=== PATIENT | female | born 1985 ===

== ENCOUNTER 2020-01-29 00:03 | Emergency (ER) | payer OTHER, SELFPAY ==
[2020-01-29 00:08] VITALS: BP 132/76; PULSE 85; RESP 16; TEMP 36.4; O2SAT 96; BMI 64.0
--- NOTE | 2020-01-29 00:52 | PC.NURSE ---
Pt ambulating from the waiting room into room 14 with a linton/steady gait. Pt states that she has been to the dentist twice this week for pain to her bottom molars on the right side. Pt was provided with a cleaning and was told that her teeth were fine, no cavities were found however pt reported continued, increased pain. Pt was prescribed Ibuprofen and Amoxicillin with no relief. Pt returns to the ED tonight due to the pain. Pt speaking full sentences with good dentition, -obvious abscesses to mouth noted.
--- NOTE | 2020-01-29 01:22 | ED_ITS ---
HPI - Dental/Oral General Chief complaint: Dental/Oral Stated complaint: Dental Pain Time Seen by Provider: 01/29/20 01:19 Source: patient Mode of arrival: ambulatory Limitations: no limitations History of Present Illness HPI Narrative: This is a 34-year-old female who presents stating that she had dental pain on Tuesday was provided with antibiotics and then followed up with the dentist today and which time they took x-rays and states that actually her dental pain does not seem to be due to any infection. She states she has tried multiple modalities any such as Tylenol, ibuprofen, [id number] Anbesol w ithout good resolution of her pain she describes it as burning and tingling in nature but denies any pain in the ear and denies any eye pain. in addition, patient denies any fevers, chills. Location: Tooth # Teeth map: 1. Related Data Previous Rx's Medication Instructions Recorded ketorolac 10 mg PO Q6H 5 Days #20 tab 01/29/20 valacyclovir 1,000 mg PO Q8H 7 Days #21 tab 01/29/20 Allergies Allergy/AdvReac Type Severity Reaction Status Date / Time No Known Allergies Allergy Verified 01/29/20 00:06 [No Known Allergies*] Review of Systems Review of Systems: Pertinent positives and negatives as stated in HPI 10 point review of systems is otherwise negative. PMFSH Past Medical History Source: nursing notes reviewed Medical History No known health problems Social History Social History Advance Directives: No Physical Exam Vital Signs: Vital Signs: Last Vital Signs Temp 97.6 F 01/29/20 00:08 Pulse 85 01/29/20 00:08 Resp 16 01/29/20 00:08 BP 132/76 01/29/20 00:08 Pulse Ox 96 01/29/20 00:08 Body Mass Index 64.0 VITAL SIGNS: Reviewed. GENERAL: Well developed, well nourished, in no acute distress. HEAD: Normocephalic/atraumatic, EYES: PERRLA, EOMI intact without pain, no nystagmus/pallor/icterus noted EARS: Ext canals without abnormality, TMs non-bulging and non-erythematous NOSE: Nares patent bilateral OROPHARYNX: no oral lesions noted, posterior pharynx clear and non-erythematous without noted tonsillar enlargement/erythema/exudates, Tapping on tooth 31/30 to there is no additional pain, no vesicular formation noted NECK: Supple, no adenopathy LUNGS: Normal breath sounds. No adventitious sounds or accessory muscle use. SpO2<96> CARDIOVASCULAR: Regular rate and rhythm without noted murmurs, no JVD or lower extremity edema. ABDOMEN: Soft, non-tender, non-distended with bowel sounds. No rigidity. No guarding. No palpable masses or hernias noted MUSCULOSKELETAL: No tenderness, deformities, or effusions noted on gross inspection. EXTREMITIES: No cyanosis, clubbing or edema. SKIN: Inspection of the skin reveals no rashes, ulcerations, jaundice, pallor, or petechiae. NEUROLOGIC: Alert and oriented x 4. Strength and sensation to light touch were grossly intact x 4. Course Course Course Narrative: this is a 34-year-old female with history and clinical presentation most suspicious for possible herpes simplex as there is no evidence of tooth infection/ abscess and no involvement of the ear despite the fact that there is no vesicles noted. Patient will receive combination analgesics an initial dose of valacyclovir here in the emergency department. Discharge Plan Discharge Clinical Impression: Herpes zoster Qualifiers: Herpes zoster complications: without complications Qualified Code(s): B02.9 - Zoster without complications Patient Disposition: Home, Self-Care Instructions: Shingles (ED) Additional Instructions: 1. Tylenol 1000 mg, orally, every 6 hours as needed for pain control. Do not exceed 4000 mg within 24 hours. 2. please follow-up with your primary care provider for re-evaluation. The patient and/or family acknowledge understanding of results (as applicable), diagnosis, treatment plan, need for follow up, and symptoms that should prompt a return to the emergency room. Prescriptions: New ketorolac 10 mg tablet 10 mg PO Q6H 5 Days Qty: 20 RF: 0 valacyclovir 1 gram tablet 1,000 mg PO Q8H 7 Days Qty: 21 RF: 0 Referrals: Armand Art MD [Primary Care Provider] - 2 days ( follow-up for suspected herpes zoster as dental exam did not elucidate any infection)
[2020-01-29] MEDS: Ketorolac Tromethamine 15 MG/ML VIAL IM (01:29)
[2020-01-29] MEDS: Acetaminophen 325 MG TABLET 975 MG PO (01:29)
--- NOTE | 2020-01-29 01:33 | PC.NURSE ---
Pt medicated per EMAR, VSS, awaiting DC paperwork.
[2020-01-29 01:34] VITALS: BP 144/89; PULSE 80; RESP 16; O2SAT 100
== END 2020-01-29 01:48 | disposition home or self-care (01) ==
PROVIDERS: Emergency Provider Student in an Organized Health Care Education/Training Program; PCP Internal Medicine
DX: B02.9 Zoster without complications (principal)
CPT/HCPCS: 96372; 99283; 99284; J1885

== ENCOUNTER 2020-11-26 13:07 | Emergency (ER) | payer OTHER, SELFPAY ==
--- NOTE | ~2020-11-26 | XR_ITS ---
EXAMINATION: XR HIP, LEFT CLINICAL INFORMATION: Left hip and groin pain. COMPARISON: None TECHNIQUE: Two views of the left hip. FINDINGS: Bones and soft tissues are normal. No fracture. Alignment is anatomic. Hip joint space is maintained. XR/XR hip LT w PEL1V IMPRESSION: No bony abnormality of the left hip identified.
[2020-11-26 13:48] VITALS: BP 147/92; PULSE 78; RESP 18; TEMP 36.8; O2SAT 100; BMI 25.2
--- NOTE | 2020-11-26 16:04 | ED.GENADULT ---
HPI - General Adult General Chief complaint: Extremity Injury, Lower Stated complaint: leg pain Time Seen by Provider: 11/26/20 14:49 Source: patient Mode of arrival: ambulatory Limitations: no limitations History of Present Illness HPI narrative: This 35-year-old female that comes into the emergency department from home with complaints of left groin pain and pain over the mons pubis located to the left hand side. She states that this pain started about 2 days ago, and has been progressively worsening. She does not recall what was happening when the pain started. She denies trauma to the area. She states that the pain is localized to that area and does not radiate anywhere else. She has never had pain like this in the past. She is currently sexually active, with 1 partner, and she is not concerned for sexually transmitted diseases. She has no past history of gonorrhea, or chlamydia however she states she has had genital herpes. She denies vaginal discharge, pain with urination, problems defecating, back pain, pain with ambulation, shortness of breath, fevers, chills, chest pain, hematuria. She is regularly followed by OBGYN, and her PCP. She does not think she is currently at this time. Onset (ago): day(s) (Two days) Radiation: non-radiation Severity scale (1-10): 6 Pain Consistency: constant Relieving factors: none Exacerbating factors: none Associated symptoms: denies other symptoms Related Data Previous Rx's Medication Instructions Recorded ketorolac 10 mg tablet 10 mg PO Q6H 5 Days #20 tab 01/29/20 valacyclovir 1 gram tablet 1,000 mg PO Q8H 7 Days #21 tab 01/29/20 diazepam 5 mg tablet (Valium) 5 mg PO TID PRN #14 tab 11/26/20 naproxen 500 mg tablet 500 mg PO BID PRN #10 tab 11/26/20 Allergies Allergy/AdvReac Type Severity Reaction Status Date / Time No Known Allergies Allergy Verified 11/26/20 13:47 [No Known Allergies*] Review of Systems Review of Systems: Constitutional : No Weight loss, No Fever, No Chills, No Night Sweats, No Fatigue, No Malaise ENT/Mouth : No Hearing loss, No Ear Pain, No Nasal Congestion, No Sinus Pain, No Hoarseness, No sore throat, No Rhinorrhea, No Swallowing Difficulty Eyes: No Eye Pain, No Swelling, No Redness, No Foreign Body, No Discharge, No Vision Changes Cardiovascular : No Chest Pain, No SOB, No Dyspnea on Exertion, No Orthopnea, No Edema, No Palpitations Respiratory : No Cough, No Sputum, No Wheezing, No Smoke Exposure, No Dyspnea Gastrointestinal : No Nausea, No Vomiting, No Diarrhea, No Constipation, No abdominal Pain, No Hematochezia, No Melena Genitourinary : no irregular bleeding, No Dysuria, No Urinary Frequency, No Hematuria, No Urinary Incontinence, No Urgency, No Flank Pain, No Urinary Flow Changes, No Hesitancy, + pain to the groin, and mons pubis Musculoskeletal : No joint pain, No Myalgias, No Joint Swelling, + pain 2 left groin Skin : No Skin Lesions, No rash Neuro : No Weakness, No Numbness, No Paresthesias, No Loss of Consciousness, No Dizziness, No Headache Psych : No Anxiety/Panic, No Depression, No SI/HI/AH/VH, No Social Issues, Heme/Lymph: No Bruising, No Bleeding,No Lymphadenopathy Endocrine : No Polyuria, No Polydipsia Yes all other systems are reviewed and are negative [facility] Past Medical History Medical History No known health problems Social History Social History Advance Directives: No Advance Directives Information Provided: Yes Patient : No Physical Exam Vital Signs: Vital Signs: Last Vital Signs Temp 98.2 F 11/26/20 13:48 Pulse 78 11/26/20 13:48 Resp 18 11/26/20 13:48 BP 147/92 H 11/26/20 13:48 Pulse Ox 100 11/26/20 13:48 Body Mass Index 25.2 vital signs have been reviewed as normal and appeared to be correct. Blood pressure normal. Heart rate normal. Respiration rate normal. Temperature normal. Oxygen saturation normal. Appearance: Alert. Oriented X3. No acute distress. Head: Normal external exam. Normocephalic. Atraumatic. Eyes: PERRLA. EOMI. Conjunctiva and sclera normal. Eyelids normal. ENT: EAC normal. TM's Normal. Pharynx normal. Uvula midline. Moist mucous membranes. Neck: Normal inspection. Neck supple. FROM. No adenopathy. Thyroid Normal. No meningeal signs. No neck mass noted. CVS: Normal heart rate and rhythm. Heart sound normal. Pulses normal throughout. No murmurs/rales/gallops. Respiratory: No respiratory distress. Painless inspiration. Breath sounds normal. No wheezes/rales/rhonchi noted. Chest nontender. No accessory muscle usage noted or decreased air movement noted. Abdomen: Soft and nontender. Bowel sounds normal in all 4 quadrants. No distention noted. No organomegaly noted. No visible injury noted. : Pain over the mons pubis to palpation, localized to the left side. Pain to the left groin. Pelvic exam revealed no abnormalities, no erythema, discharge, blood noted to the cervix or cervical os. No chandelier sign. Patient tolerated them pelvic exam well. Back: No CVA tenderness. Full range of motion noted. No rashes/lesion/induration/fluctuance or signs of infection noted. Skin: Skin warm and dry. Normal skin color. Normal skin turgor. No rashes/lesions/lacerations noted. Extremities: No lower extremity edema. Extremities exhibit normal range of motion. Extremities nontender. Neuro: Oriented X 3. No motor deficit. No sensory deficit. Reflexes normal. Normal steady gait. No focal neuro deficits noted. Vascular: + radial pulses/+ 2 distal pedal pulses/+2 dorsalis pedis b/l. Normal cap refill. No cyanosis noted to upper extremity nails and lower extremity toes nails. Course Course Course Narrative: Due to the patient's vague symptoms, a pelvic exam was done, and samples were taken to rule out possibility and PID, or STDs. Patient tolerated procedure well. No notable findings on exam. X-ray of the hip/pelvis revealed no abnormal findings. Had this times and most likely diagnosis is a groin strain/sprain. However, STD samples which he can, and will await results. Patient aware of plan, and educated on diagnosis. She has no questions or concerns at this time. Medical Decision Making Lab Data Labs: Lab Results 11/26/20 11/26/20 Range/Units 16:39 16:40 Urine Color YELLOW Urine Appearance CLEAR Urine pH 6.0 (5.0-8.0) Ur Specific [place] >= 1.030 H (1.005-1.025) Urine Protein TRACE (NEG-TRACE) MG/DL Urine Glucose (UA) NEG (NEG) MG/DL Urine Ketones 40 (NEG) MG/DL Urine Blood 1+ H (NEG) Urine Nitrite NEG (NEG) Ur Leukocyte Esterase NEG (NEG) Urine RBC 0-2 (0) /HPF Urine WBC 0 (0-4) /HPF Ur Squamous Epith Cells TRACE /LPF Urine Bacteria TRACE /LPF Urine Test NEGATIVE (NEGATIVE) Imaging Data X-ray of pelvis/hip: Attestation: I personally reviewed and interpreted this imaging study as follows: Radiologist's impression: IMPRESSION: No bony abnormality of the left hip identified. Discharge Plan Discharge Clinical Impression: Groin strain Patient Disposition: Home, Self-Care Instructions: Groin Strain (ED) Additional Instructions: You have pending lab results if any are positive you will be contacted within 5-7 days. Prescriptions: New naproxen 500 mg tablet 500 mg PO BID PRN (Reason: pain) Qty: 10 RF: 0 diazepam [Valium] 5 mg tablet 5 mg PO TID PRN (Reason: muscle spasm) Qty: 14 RF: 0 No Action ketorolac 10 mg tablet 10 mg PO Q6H 5 Days Qty: 20 RF: 0 valacyclovir 1 gram tablet 1,000 mg PO Q8H 7 Days Qty: 21 RF: 0 Referrals: Armand Art MD [Primary Care Provider] - 2 days Stand Alone Forms: Work/School Release Print Language: Mongolian
[2020-11-26] MEDS: Ibuprofen 800 MG TABLET PO (16:45)
[2020-11-26 16:50] LABS: Appearance Urine CLEAR; Color Urine YELLOW; Glucose Urine UA NEG (NEG); Leukocyte Esterase Urine NEG (NEG); Nitrite Urine NEG (NEG); Specific Gravity - Urine >= 1.030 (1.005-1.025); UACC Culture Trigger NO; Urine Blood 1+ (NEG); Urine Ketones 40 MG/DL (NEG); Urine Protein TRACE MG/DL (NEG-TRACE)
[2020-11-26 16:51] LABS: Urine Pregnancy NEGATIVE (NEGATIVE)
[2020-11-26 16:52] LABS: UPreg QC Valid YES
[2020-11-26 16:59] LABS: Bacteria Urine TRACE /LPF; RBC Urine 0-2 /HPF (0); Squamous Epithelial Cell Urine TRACE /LPF; WBC Urine 0 /HPF (0-4)
[2020-11-27 02:04] LABS: CT PCR NOT DETECTED (Not Detect.); NG PCR NOT DETECTED (Not Detect.)
[2020-11-27 10:05] LABS: BV Int Neg Control Negative (Negative); BV Int Pos Control Positive (Positive)
== END 2020-11-26 17:09 | disposition home or self-care (01) ==
PROVIDERS: Physician Assistant Medical; Emergency Provider Emergency Medicine Emergency Medical Services; PCP Internal Medicine
DX: S39.013A Strain of muscle, fascia and tendon of pelvis, initial encounter (principal); S39.011A Strain of muscle, fascia and tendon of abdomen, initial encounter; R10.2 Pelvic and perineal pain; M25.552 Pain in left hip; X58.XXXA Exposure to other specified factors, initial encounter; Y93.9 Activity, unspecified; Y92.9 Unspecified place or not applicable; Y99.9 Unspecified external cause status; Z20.2 Contact with and (suspected) exposure to infections with a predominantly sexual mode of transmission; Z79.899 Other long term (current) drug therapy
CPT/HCPCS: 73502; 81001; 81025; 87480; 87491; 87510; 87591; 87660; 99283; 99284

== ENCOUNTER 2020-12-16 06:47 | Emergency (ER) | payer OTHER, SELFPAY ==
--- NOTE | ~2020-12-16 | CT_ITS ---
EXAMINATION: CT ABDOMEN AND PELVIS WITHOUT CONTRAST CLINICAL INFORMATION: Left flank pain COMPARISON: None TECHNIQUE: Multidetector volumetric imaging was performed from the superior aspect of the liver through the pubic symphysis. Sagittal and coronal reformatted images were obtained on the technologist's workstation. This CT examination was performed using dose optimization techniques as appropriate, variously including the following: *Automated exposure control *Adjustment of mA and/or kV according to patient size (this includes techniques or standardized protocols for targeted exams where dose is matched to indication/reason for exam; i.e. extremities or head) *Use of iterative reconstruction technique DLP: 669 mGy-cm FINDINGS: LUNG BASES: The lung bases are clear. The heart size is normal. LIVER, GALLBLADDER, AND BILIARY TREE: The liver is normal in size, shape, and attenuation. No focal hepatic lesion or biliary ductal dilatation is present. The gallbladder is unremarkable with no evidence of radiopaque gallstones, gallbladder wall thickening, or obvious pericholecystic inflammatory changes. PANCREAS: Unremarkable. SPLEEN: Unremarkable. ADRENAL GLANDS: Unremarkable. KIDNEYS AND URETERS: The kidneys are normal in size, shape, and attenuation. No hydronephrosis, hydroureter, or calculi seen. No perinephric stranding. BLADDER: Unremarkable. GASTROINTESTINAL TRACT: There is scattered stool and gas seen throughout the colon without significant distention. The small bowel loops are normal caliber. Appendix is normal caliber. No inflammatory changes seen in the abdomen. ABDOMINAL WALL: No significant hernia is appreciated. LYMPH NODES: Normal. VASCULAR: Unremarkable. PELVIC VISCERA: The uterus is anteverted without any focal lesion. No adnexal mass or free fluid seen. OSSEOUS STRUCTURES: Unremarkable. CT/CT abdomen pelvis wo con IMPRESSION: No acute intra-abdominal process seen. Normal appendix
[2020-12-16 06:50] VITALS: BP 138/91; PULSE 82; RESP 16; TEMP 36.7; O2SAT 97; BMI 29.0
[2020-12-16 07:07] LABS: Appearance Urine HAZY; Color Urine YELLOW; Glucose Urine UA NEG (NEG); Leukocyte Esterase Urine NEG (NEG); Nitrite Urine NEG (NEG); Specific Gravity - Urine >= 1.030 (1.005-1.025); UACC Culture Trigger NO; Urine Blood 1+ (NEG); Urine Ketones 5 MG/DL (NEG); Urine Protein NEG (NEG-TRACE)
[2020-12-16 07:19] LABS: WBC Urine 0 /HPF (0-4)
[2020-12-16 07:20] LABS: Amorphous Sediment Urine 1+ /LPF; Mucus Urine 3+ /LPF; Squamous Epithelial Cell Urine 1+ /LPF
--- NOTE | 2020-12-16 07:39 | ED_ITS ---
HPI - Female Genitourinary General Chief complaint: Urogenital-Female Stated complaint: side pain radiates to back Time Seen by Provider: 12/16/20 07:34 Source: patient Mode of arrival: ambulatory Limitations: no limitations History of Present Illness HPI Narrative: Patient comes to emergency room complaining of left-sided flank pain for 3 days. Patient denies dysuria, complaining of frequency. Patient denies fever chills, nausea vomiting or diarrhea, no abdominal pain. Related Data Previous Rx's Medication Instructions Recorded ketorolac 10 mg tablet 10 mg PO Q6H 5 Days #20 tab 01/29/20 valacyclovir 1 gram tablet 1,000 mg PO Q8H 7 Days #21 tab 01/29/20 diazepam 5 mg tablet (Valium) 5 mg PO TID PRN #14 tab 11/26/20 naproxen 500 mg tablet 500 mg PO BID PRN #10 tab 11/26/20 ibuprofen 600 mg tablet 600 mg PO Q6H PRN #14 tab 12/16/20 Allergies Allergy/AdvReac Type Severity Reaction Status Date / Time No Known Allergies Allergy Verified 12/16/20 06:50 [No Known Allergies*] Review of Systems Review of Systems: Constitutional : No Weight loss, No Fever, No Chills, No Night Sweats, No Fatigue, No Malaise ENT/Mouth : No Hearing loss, No Ear Pain, No Nasal Congestion, No Sinus Pain, No Hoarseness, No sore throat, No Rhinorrhea, No Swallowing Difficulty Eyes: No Eye Pain, No Swelling, No Redness, No Foreign Body, No Discharge, No Vision Changes Cardiovascular : No Chest Pain, No SOB, No Dyspnea on Exertion, No Orthopnea, No Edema, No Palpitations Respiratory : No Cough, No Sputum, No Wheezing, No Smoke Exposure, No Dyspnea Gastrointestinal : No Nausea, No Vomiting, No Diarrhea, No Constipation, No abdominal Pain, No Hematochezia, No Melena Genitourinary : no irregular bleeding, No Dysuria, No Urinary Frequency, No Hematuria, No Urinary Incontinence, No Urgency, complaining of left-sided Flank Pain, No Urinary Flow Changes, No Hesitancy Musculoskeletal : No joint pain, No Myalgias, No Joint Swelling Skin : No Skin Lesions, No rash Neuro : No Weakness, No Numbness, No Paresthesias, No Loss of Consciousness, No Dizziness, No Headache Psych : No Anxiety/Panic, No Depression, No SI/HI/AH/VH, No Social Issues, Heme/Lymph: No Bruising, No Bleeding,No Lymphadenopathy Endocrine : No Polyuria, No Polydipsia, No Temperature Intolerance PMF Past Medical History Medical History No known health problems Social History Social History Patient Tobacco Use Status: Never used Tobacco Use of substances other than those prescribed or required for medical reasons: Yes Substance Use Type: Marijuana Advance Directives: No Physical Exam Vital Signs: Vital Signs: Last Vital Signs Temp 97.9 F 12/16/20 08:49 Pulse 70 12/16/20 08:49 Resp 16 12/16/20 08:49 BP 146/72 H 12/16/20 08:49 Pulse Ox 99 12/16/20 08:49 Body Mass Index 29.0 Const: Other: Appearance: Alert. Oriented X3. No acute distress. Eyes: Pupils equal, round and reactive to light. ENT: Pharynx normal. Neck: Normal inspection. Neck supple. No lymph nodes noted. No crepitus CVS: Normal heart rate and rhythm. Pulses normal. Normal S1 and S2 Respiratory: No respiratory distress. Breath sounds normal. No Wheezing. No rales Abdomen: Soft and nontender. No rigidity. No distention. Mild left-sided CVA tenderness Skin: Skin warm and dry. Normal skin color. Normal skin turgor. Extremities: No lower extremity edema. No lower extremity edema. No Lacerations. No Rash Neuro: Oriented X 3. No motor deficit. No sensory deficit. Moving all extermities. No slurred speech. Course Course Course Narrative: Patient's CT scan within normal limits, no acute findings, discussed labs with patient as well. Patient's pain likely musculoskeletal. I informed the patient that she has blood in the urine but is chronic, patient will follow-up with her primary care physician. MDM - Female Genitourinary Lab Data Result diagrams: 12/16/20 07:54 12/16/20 07:54 Labs: Lab Results 12/16/20 12/16/20 12/16/20 Range/Units 06:58 06:58 07:54 WBC 8.0 (4.8-10.8) X10*3/uL RBC 4.33 (4.20-5.50) X10*6/uL Hgb 13.1 (12.0-16.0) g/dl Hct 39.2 (37-47) % MCV 90.5 (80-98) fL MCH 30.3 (27.0-33.0) pg MCHC 33.4 (31.0-35.0) g/dl RDW 11.9 (11.0-16.0) % Plt Count 209 (160-400) X10*3/uL MPV 11.2 (9.4-12.3) fL Immature Gran % (Auto) 0.2 (0.0-0.4) % Neut % (Auto) 75.3 H (45-73) % Lymph % (Auto) 17.3 L (20-40) % [place] % (Auto) 6.6 (2-11) % Eos % (Auto) 0.4 (0-4) % Baso % (Auto) 0.2 (0-2) % Lymph # (Auto) 1.4 (1.2-4.9) X10*3/uL [place] # (Auto) 0.5 (0.1-1.2) X10*3/uL Eos # (Auto) 0.0 (0.0-0.4) X10*3/uL Baso # (Auto) 0.0 (0.0-0.2) X10*3/uL Abs Immat Gran (auto) 0.02 (0.00-0.03) X10*3/uL Absolute Neuts (auto) 6.0 (2.0-8.3) X10*3/uL Absolute Nucleated RBC 0.000 (0.0-0.012) X10*3/uL Nucleated RBC % (auto) 0.0 (0.0-0.2) /100WBC Sodium (135-145) mmol/L Potassium (3.3-5.1) mmol/L Chloride (96-108) mmol/L Carbon Dioxide (22-29) mmol/L Anion Gap (12-20) BUN (9-16) mg/dL Creatinine (0.5-1.4) mg/dL Estim Creat Clear Calc Estimated GFR Random Glucose (60-115) mg/dL Calcium (8.4-10.2) mg/dL Total Bilirubin (0.0-1.0) mg/dL Direct Bilirubin (0.0-0.5) mg/dL AST (5-31) U/L ALT (0-31) U/L Alkaline Phosphatase (39-117) U/L Total Protein (6.5-8.0) g/dL Albumin (3.5-5.0) g/dL Urine Color YELLOW Urine Appearance HAZY Urine pH 6.0 (5.0-8.0) Ur Specific [place] >= 1.030 H (1.005-1.025) Urine Protein NEG (NEG-TRACE) MG/DL Urine Glucose (UA) NEG (NEG) MG/DL Urine Ketones 5 (NEG) MG/DL Urine Blood 1+ H (NEG) Urine Nitrite NEG (NEG) Ur Leukocyte Esterase NEG (NEG) Urine RBC 5-9 H (0) /HPF Urine WBC 0 (0-4) /HPF Ur Squamous Epith Cells 1+ /LPF Amorphous Sediment 1+ /LPF Urine Bacteria NONE /LPF Urine Mucus 3+ /LPF Urine Test NEGATIVE (NEGATIVE) 12/16/20 Range/Units 07:54 WBC (4.8-10.8) X10*3/uL RBC (4.20-5.50) X10*6/uL Hgb (12.0-16.0) g/dl Hct (37-47) % MCV (80-98) fL MCH (27.0-33.0) pg MCHC (31.0-35.0) g/dl RDW (11.0-16.0) % Plt Count (160-400) X10*3/uL MPV (9.4-12.3) fL Immature Gran % (Auto) (0.0-0.4) % Neut % (Auto) (45-73) % Lymph % (Auto) (20-40) % [place] % (Auto) (2-11) % Eos % (Auto) (0-4) % Baso % (Auto) (0-2) % Lymph # (Auto) (1.2-4.9) X10*3/uL [place] # (Auto) (0.1-1.2) X10*3/uL Eos # (Auto) (0.0-0.4) X10*3/uL Baso # (Auto) (0.0-0.2) X10*3/uL Abs Immat Gran (auto) (0.00-0.03) X10*3/uL Absolute Neuts (auto) (2.0-8.3) X10*3/uL Absolute Nucleated RBC (0.0-0.012) X10*3/uL Nucleated RBC % (auto) (0.0-0.2) /100WBC Sodium 141 (135-145) mmol/L Potassium 3.7 (3.3-5.1) mmol/L Chloride 108 (96-108) mmol/L Carbon Dioxide 26 (22-29) mmol/L Anion Gap 11 L (12-20) BUN 9 (9-16) mg/dL Creatinine 0.74 (0.5-1.4) mg/dL Estim Creat Clear Calc 114.2 Estimated GFR > 60 Random Glucose 123 H (60-115) mg/dL Calcium 9.3 (8.4-10.2) mg/dL Total Bilirubin 0.3 (0.0-1.0) mg/dL Direct Bilirubin < 0.2 (0.0-0.5) mg/dL AST 20 (5-31) U/L ALT 30 (0-31) U/L Alkaline Phosphatase 93 (39-117) U/L Total Protein 6.6 (6.5-8.0) g/dL Albumin 4.2 (3.5-5.0) g/dL Urine Color Urine Appearance Urine pH (5.0-8.0) Ur Specific [place] (1.005-1.025) Urine Protein (NEG-TRACE) MG/DL Urine Glucose (UA) (NEG) MG/DL Urine Ketones (NEG) MG/DL Urine Blood (NEG) Urine Nitrite (NEG) Ur Leukocyte Esterase (NEG) Urine RBC (0) /HPF Urine WBC (0-4) /HPF Ur Squamous Epith Cells /LPF Amorphous Sediment /LPF Urine Bacteria /LPF Urine Mucus /LPF Urine Test (NEGATIVE) Imaging Data CT scan - abdomen: Radiologist's impression: FINDINGS: LUNG BASES: The lung bases are clear. The heart size is normal.? LIVER, GALLBLADDER, AND BILIARY TREE: The liver is normal in size, shape, and attenuation. No focal hepatic lesion or biliary ductal dilatation is present. The gallbladder is unremarkable with no evidence of radiopaque gallstones, gallbladder wall thickening, or obvious pericholecystic inflammatory changes.? PANCREAS: Unremarkable.? SPLEEN: Unremarkable.? ADRENAL GLANDS: Unremarkable.? KIDNEYS AND URETERS: The kidneys are normal in size, shape, and attenuation. No hydronephrosis, hydroureter, or calculi seen. No perinephric stranding. ? BLADDER: Unremarkable.? GASTROINTESTINAL TRACT: There is scattered stool and gas seen throughout the colon without significant distention. The small bowel loops are normal caliber. Appendix is normal caliber. No inflammatory changes seen in the abdomen.? ABDOMINAL WALL: No significant hernia is appreciated.? LYMPH NODES: Normal. VASCULAR: Unremarkable. PELVIC VISCERA: The uterus is anteverted without any focal lesion. No adnexal mass or free fluid seen.? OSSEOUS STRUCTURES: Unremarkable.? CT/CT abdomen pelvis wo con IMPRESSION: No acute intra-abdominal process seen. ? Normal appendix? Discharge Plan Discharge Clinical Impression: Acute left flank pain Patient Disposition: Home, Self-Care Instructions: Flank Pain (ED) Additional Instructions: Please follow-up with your primary care physician tomorrow. If you have any worsening or new symptoms, please return to the emergency room or call 911 Prescriptions: New ibuprofen 600 mg tablet 600 mg PO Q6H PRN (Reason: pain) Qty: 14 RF: 0 No Action ketorolac 10 mg tablet 10 mg PO Q6H 5 Days Qty: 20 RF: 0 valacyclovir 1 gram tablet 1,000 mg PO Q8H 7 Days Qty: 21 RF: 0 naproxen 500 mg tablet 500 mg PO BID PRN (Reason: pain) Qty: 10 RF: 0 diazepam [Valium] 5 mg tablet 5 mg PO TID PRN (Reason: muscle spasm) Qty: 14 RF: 0
[2020-12-16 07:59] LABS: MANUAL DIFF FLAG NO
[2020-12-16 08:00] LABS: Basophils Percent Auto 0.2 % (0-2); Eosinophils Percent Auto 0.4 % (0-4); Hematocrit 39.2 % (37-47); Hemoglobin 13.1 g/dl (12.0-16.0); Imm Gran Abs Auto 0.02 X10*3/uL (0.00-0.03); Imm Gran Pct Auto 0.2 % (0.0-0.4); Lymphocytes Absolute Auto 1.4 X10*3/uL (1.2-4.9); Lymphocytes Percent Auto 17.3 % (20-40); Mean Corpuscular HGB Conc 33.4 g/dl (31.0-35.0); Mean Corpuscular Hemoglobin 30.3 pg (27.0-33.0); Mean Corpuscular Volume 90.5 fL (80-98); Mean Platelet Volume 11.2 fL (9.4-12.3); Monocytes Absolute Auto 0.5 X10*3/uL (0.1-1.2); Monocytes Percent Auto 6.6 % (2-11); Neutrophils Percent Auto 75.3 % (45-73); Platelet Count 209 X10*3/uL (160-400); Red Blood Count 4.33 X10*6/uL (4.20-5.50); Red Cell Distribution Width 11.9 % (11.0-16.0)
[2020-12-16 08:14] LABS: Alanine Aminotransferase 30 U/L (0-31); Albumin Level 4.2 g/dL (3.5-5.0); Alkaline Phosphatase 93 U/L (39-117); Anion Gap 11 (12-20); Aspartate Amino Transferase 20 U/L (5-31); Bilirubin Direct < 0.2 mg/dL (0.0-0.5); Bilirubin Total 0.3 mg/dL (0.0-1.0); Blood Urea Nitrogen 9 mg/dL (9-16); Calcium 9.3 mg/dL (8.4-10.2); Carbon Dioxide 26 mmol/L (22-29); Chloride 108 mmol/L (96-108); Creatinine Clr Calc Pharmacy 114.2; Estimated Glomerular Filt Rate > 60; Glucose Random 123 mg/dL (60-115); Potassium 3.7 mmol/L (3.3-5.1); Sodium 141 mmol/L (135-145); Total Protein 6.6 g/dL (6.5-8.0)
[2020-12-16 08:25] LABS: UPreg QC Valid YES; Urine Pregnancy NEGATIVE (NEGATIVE)
[2020-12-16 08:49] VITALS: BP 146/72; PULSE 70; RESP 16; TEMP 36.6; O2SAT 99
== END 2020-12-16 10:18 | disposition home or self-care (01) ==
PROVIDERS: Emergency Provider Emergency Medicine; PCP Internal Medicine
DX: R10.9 Unspecified abdominal pain (principal); Z79.899 Other long term (current) drug therapy
CPT/HCPCS: 36415; 74176; 80048; 80076; 81001; 81025; 85025; 99284

== ENCOUNTER → 2021-03-26 13:23 | Outpatient (BNVA) | payer OTHER, SELFPAY | PROVIDERS: Visit Provider Advanced Practice Midwife | DX: Z32.01 Encounter for pregnancy test, result positive (principal); O09.529 Supervision of elderly multigravida, unspecified trimester | CPT/HCPCS: 81025; 99202 ==

== ENCOUNTER 2021-03-27 14:07 | Outpatient (REF) | payer OTHER, SELFPAY ==
--- NOTE | ~2021-03-27 | US_ITS ---
EXAMINATION: US OBSTETRICAL ULTRASOUND CLINICAL INFORMATION: Encounter for supervision abnormal . Check size and dates. COMPARISON: None. LMP: Unknown. TECHNIQUE: Transabdominal and transvaginal first trimester OB ultrasound FINDINGS: The uterus is normal in size and shape. No intrauterine is seen. Endometrial thickness is normal measuring 1.3 cm. The ovaries are normal-appearing. The right ovary measures 2 x 1.4 x 2.5 cm. The left ovary measures 3 x 2.5 x 2.6 cm. There is a 1.6 x 1.4 x 1.3 cm cyst in the left ovary. There is no fluid in the pelvis. US/US OB <= 14 weeks fetus IMPRESSION: No intrauterine seen. Follow-up quantitative beta hCG and OB ultrasound recommended.
== END 2021-03-27 14:08 | disposition home or self-care (01) ==
LOC: HO.US 14:07
PROVIDERS: Visit Provider Advanced Practice Midwife
DX: O09.511 Supervision of elderly primigravida, first trimester (principal)
CPT/HCPCS: 76801

== ENCOUNTER 2021-04-02 12:33 | Outpatient (REF) | payer OTHER, SELFPAY ==
[2021-04-02 13:54] LABS: HCG Quantitative 8398 mIU/mL
== END 2021-04-02 12:34 | disposition home or self-care (01) ==
LOC: HO.LAB 12:33
PROVIDERS: PCP Internal Medicine; Visit Provider Advanced Practice Midwife
DX: O09.529 Supervision of elderly multigravida, unspecified trimester (principal)
CPT/HCPCS: 36415; 84702

== ENCOUNTER 2021-04-04 08:58 | Outpatient (REF) | payer OTHER, SELFPAY ==
[2021-04-04 10:08] LABS: HCG Quantitative 12116 mIU/mL
== END 2021-04-04 08:59 | disposition home or self-care (01) ==
LOC: HO.LAB 08:58
PROVIDERS: PCP Internal Medicine; Visit Provider Advanced Practice Midwife
DX: O09.529 Supervision of elderly multigravida, unspecified trimester (principal)
CPT/HCPCS: 36415; 84702

== ENCOUNTER → 2021-07-06 14:44 | Outpatient (BNVA) | payer OTHER, SELFPAY | PROVIDERS: PCP Internal Medicine; Visit Provider Advanced Practice Midwife | DX: O09.529 Supervision of elderly multigravida, unspecified trimester (principal); Z3A.00 Weeks of gestation of pregnancy not specified | CPT/HCPCS: 99212 ==

== ENCOUNTER 2021-07-09 13:49 | Outpatient (REF) | payer OTHER, SELFPAY ==
[2021-07-09 15:32] LABS: Hemoglobin 11.9 g/dl (12.0-16.0); Mean Corpuscular HGB Conc 33.1 g/dl (31.0-35.0); Mean Corpuscular Hemoglobin 29.5 pg (27.0-33.0); Mean Corpuscular Volume 89.1 fL (80.0-98.0); Mean Platelet Volume 11.6 fL (9.4-12.3); Platelet Count 222 X10*3/uL (160-400); Red Blood Count 4.04 X10*6/uL (4.20-5.50); White Blood Count 11.2 X10*3/uL (4.8-10.8)
[2021-07-09 16:26] LABS: Amphetamine Screen Urine Not Detected (Not Detect); Barbiturates, Urine Not Detected (Not Detect); Benzodiazepines Screen Urine Not Detected (Not Detect); Cannabinoid Screen Urine POSITIVE (Not Detect); Cocaine Screen Urine Not Detected (Not Detect); Fentanyl, urine Not Detected (Not Detect); Opiate Screen Urine Not Detected (Not Detect); Phencyclidine Screen Urine Not Detected (Not Detect)
[2021-07-10 07:42] LABS: HBsAGNum1 0.18 S/CO (0.00-0.99); HIV AB/AG Nonreactive (Nonreactive); HIV Num 1 0.08 S/CO (0.00-0.99); Hepatitis B Surface Antigen Negative (Negative); ~HepC Num1 0.08 S/CO (0.00-0.79); ~Hepatitis C Antibody Nonreactive (Nonreactive)
[2021-07-10 08:43] LABS: Syphilis Screen Nonreactive (Nonreactive)
[2021-07-14 09:12] LABS: Rubella IgG Antibody 1.73 Index
== END 2021-07-09 13:50 | disposition home or self-care (01) ==
LOC: HO.LAB 13:49
PROVIDERS: PCP Internal Medicine; Visit Provider Advanced Practice Midwife
DX: O09.522 Supervision of elderly multigravida, second trimester (principal); Z3A.19 19 weeks gestation of pregnancy; Z79.899 Other long term (current) drug therapy
CPT/HCPCS: 80307; 85027; 86762; 86780; 86787; 86803; 86850; 86900; 86901; 87086; 87340; 87389; 99212

== ENCOUNTER 2021-07-17 10:34 | Outpatient (REF) | payer OTHER, SELFPAY ==
--- NOTE | ~2021-07-17 | US_ITS ---
EXAMINATION: US OBSTETRICAL CLINICAL INFORMATION: 35-year-old at the 20.1 weeks of gestation ROMNEY Screening for anomaly COMPARISON: 03/27/2021 TECHNIQUE: Real-time transabdominal ultrasound was performed using C1-5 megahertz transducer. FINDINGS: A single, active, fetus is seen in transverse presentation. The placenta is posterior without previa, and the amniotic fluid volume is wnl. MEASUREMENTS: 1. Biparietal Diameter: 4.6 cm; 19.6 wks 2. Occipital Frontal Diameter: 5.8 cm 3. Head Circumference: 16.6 cm; 19.3 wks 4. Abdominal Circumference: 14.4 cm; 19.5 wks 5. Femur Length: 3.6 cm; 21.2 wks 6. Humerus Length: 3.1 cm; 20.2 wks 7. Tibia Length: 2.8 cm; 20.2 wks 8. Ulna Length: 3.0 cm; 21.2 wks 9. Lateral ventricle: 0.72 cm 10. Cerebellum: 1.9 cm; 19.4 wks 11. Cisterna Magna: 0.5 cm 12. Nuchal Fold: 3.6 mm 13. Heart Rate: 158 beats per minute Rt ovary: normal Lt ovary: Unable to visualize Cervical length 4.7 cm on T/A. GESTATIONAL AGE: 1. Established GA: N/A wks 2. GA from AUA: 20.1 wks ESTIMATED DATE OF DELIVERY: 1. Established EAN: N/A 2. EAN from [facility]: 20.1 ANATOMY: Due to maternal body habitus and position, the views of the aortic arch, RVOT and 3 vessel trachea view were suboptimal. The visualized anatomy includes but not limited to: 1. Cranium: Normal 2. Intracranial anatomy: cavum septum pellucidi, lateral ventricles, choroid plexus, cerebellum, posterior fossa, third and fourth ventricles. 3. face: orbits, lip/palate, profile, nasal bone 4. Heart: four-chamber view of the heart, ventricular septum, foramen ovale, pulmonary vein, left outflow tracts, three-vessel view, ductal arches, situs.. 5. Diaphragm: Normal 6. Abdominal wall: Normal 7. Cord Insertion: Normal 8. Spine: Cervical, thoracic, lumbar, sacral. 9. Stomach: Normal size and shape 10. Right Kidney: Normal 11. Left Kidney: Normal 12. 3 vessel cord: Normal 13. Upper extremity: Open hands, fifth digit. 14. Lower extremity: Tibia, fibula, bilateral feet. 15. Bladder: Normal 16. Genitalia: Male, patient aware US/US OB /maternal detail IMPRESSION: 1. Single, living, intrauterine with appropriate biometry. 2. Incomplete survey. No abnormalities were seen in visualized anatomy. DISCUSSION: I reviewed today's ultrasound findings. We discussed the limitations of ultrasound in diagnosing aneuploidy and other congenital abnormalities. I reviewed the differences between screening test and diagnostic test. Amniocentesis was discussed and declined. I offered her NIPT but declined. This is her first ultrasound documenting IUP in this . She is uncertain of her LMP. She was informed that the baseline incidence of congenital abnormalities is approximately 3-5%. Not all these conditions are diagnosable in utero. RECOMMENDATIONS: 1. A follow-up in approximately 3 weeks is been scheduled for growth. Thank you for allowing me to participate in her care. Total time 30 minutes. The time spent was devoted to counseling the patient about the disease and diagnosis, coordinating care including reviewing her records, pertinent lab data and studies, as well as discussing diagnostic evaluation and workup, plan therapeutic interventions and future disposition of care. This includes any additional research needed to obtain further information in formulating the plan of care of this patient. This note was generated with a voice recognition program. Please excuse any errors which may have been overlooked during my review of this note. Sometimes these errors may affect the content or meaning of a given sentence.
== END 2021-07-17 10:35 | disposition home or self-care (01) ==
LOC: HO.US 10:34
PROVIDERS: Visit Provider Advanced Practice Midwife
DX: O09.522 Supervision of elderly multigravida, second trimester (principal); O35.9XX0 Maternal care for (suspected) fetal abnormality and damage, unspecified, not applicable or unspecified; Z3A.20 20 weeks gestation of pregnancy
CPT/HCPCS: 76811

== ENCOUNTER 2021-09-15 09:43 | Outpatient (REF) | payer OTHER, SELFPAY ==
[2021-09-15 16:04] LABS: CT PCR NOT DETECTED (Not Detect.); NG PCR NOT DETECTED (Not Detect.)
[2021-09-16 09:05] LABS: BV Int Neg Control Negative (Negative); BV Int Pos Control Positive (Positive)
[2021-09-18 07:06] LABS: HPV mRNA E6/E7 rflx Not Detected (Not Detected)
== END 2021-09-15 09:44 | disposition home or self-care (01) ==
LOC: HO.LAB 09:43
PROVIDERS: Visit Provider Advanced Practice Midwife
DX: Z11.51 Encounter for screening for human papillomavirus (HPV) (principal); O09.523 Supervision of elderly multigravida, third trimester; Z3A.28 28 weeks gestation of pregnancy
CPT/HCPCS: 87480; 87491; 87510; 87591; 87624; 87660; 88142; 99212

== ENCOUNTER 2021-10-02 12:41 | Outpatient (REF) | payer OTHER, SELFPAY ==
[2021-10-02 15:58] LABS: Hematocrit 34.1 % (37.0-47.0); Hemoglobin 11.5 g/dl (12.0-16.0); Mean Corpuscular HGB Conc 33.7 g/dl (31.0-35.0); Mean Corpuscular Hemoglobin 29.5 pg (27.0-33.0); Mean Corpuscular Volume 87.4 fL (80.0-98.0); Mean Platelet Volume 12.5 fL (9.4-12.3); Platelet Count 181 X10*3/uL (160-400); Red Cell Distribution Width 12.4 % (11.0-16.0); White Blood Count 10.4 X10*3/uL (4.8-10.8)
[2021-10-02 16:22] LABS: Glucose 1 Hour PP 50gm Dose 125 mg/dL (60-140)
[2021-10-02 16:47] LABS: Syphilis Screen Nonreactive (Nonreactive)
== END 2021-10-02 12:42 | disposition home or self-care (01) ==
LOC: HO.LAB 12:41
PROVIDERS: PCP Internal Medicine; Visit Provider Advanced Practice Midwife
DX: O09.523 Supervision of elderly multigravida, third trimester (principal); Z3A.31 31 weeks gestation of pregnancy
CPT/HCPCS: 36415; 81003; 85027; 86780; 99212

== ENCOUNTER 2021-10-14 11:28 | Outpatient (REF) | payer OTHER, SELFPAY ==
--- NOTE | ~2021-10-14 | US_ITS ---
EXAMINATION: US RETROPERITONEAL LIMITED (RENAL ONLY) CLINICAL INFORMATION: Nonspecified abdomen pain. COMPARISON: None TECHNIQUE: Limited sonography right upper quadrant FINDINGS: RIGHT KIDNEY: 12.1 x 5.2 x 6.0 cm (SAG x AP x TRV). There is moderate right hydronephrosis. The patient is 32 weeks . There is a lower pole cyst at 9 mm with intrinsic punctate calcification. No perinephric collection. LEFT KIDNEY: 12.2 x 6.3 x 4.8. cm (SAG x AP x TRV). There is slight prominence to the left collecting system. There is a small 6 mm upper pole cyst interpolar 6 mm cyst. Suspicious lesions or perinephric collections. Some debris is noted in the bladder. US/US renal BI IMPRESSION: Moderate right hydronephrosis likely hydronephrosis of .
== END 2021-10-14 11:29 | disposition home or self-care (01) ==
LOC: HO.US 11:28
PROVIDERS: Visit Provider Internal Medicine
DX: R10.9 Unspecified abdominal pain (principal)
CPT/HCPCS: 76775

== ENCOUNTER → 2021-10-19 11:57 | Outpatient (BNVA) | payer OTHER, SELFPAY | PROVIDERS: PCP Internal Medicine; Visit Provider Obstetrics & Gynecology | DX: O36.8330 Maternal care for abnormalities of the fetal heart rate or rhythm, third trimester, not applicable or unspecified (principal); Z3A.33 33 weeks gestation of pregnancy | CPT/HCPCS: 99212 ==

== ENCOUNTER → 2021-10-29 14:48 | Outpatient (BNVA) | payer OTHER, SELFPAY | PROVIDERS: PCP Internal Medicine; Visit Provider Obstetrics & Gynecology | DX: O09.523 Supervision of elderly multigravida, third trimester (principal); O99.323 Drug use complicating pregnancy, third trimester; O98.513 Other viral diseases complicating pregnancy, third trimester; F12.90 Cannabis use, unspecified, uncomplicated; B00.9 Herpesviral infection, unspecified; Z3A.35 35 weeks gestation of pregnancy | CPT/HCPCS: 99212 ==

== ENCOUNTER 2022-01-15 01:41 | Emergency (ER) | payer OTHER, SELFPAY ==
--- NOTE | 2022-01-15 | ECG_ITS ---
Test Reason : RIB PAIN Blood Pressure : / mmHG Vent. Rate : 078 BPM Atrial Rate : 078 BPM P-R Int : 136 ms QRS Dur : 072 ms QT Int : 398 ms P-R-T Axes : 014 046 024 degrees QTc Int : 453 ms Normal sinus rhythm Normal ECG When compared with ECG of 18-DEC-2018 08:02, No significant change was found Referred By: Generic ED Physician Electronically Signed By:MALVIN PEREZ MD
--- NOTE | ~2022-01-15 | XR_ITS ---
EXAMINATION: XR CHEST CLINICAL INFORMATION: Rib pain COMPARISON: 12/18/2018 TECHNIQUE: 2 views of the chest were obtained. FINDINGS: Lung volumes are symmetric. No focal consolidation is seen. No evidence of pneumothorax, pleural effusion, or pulmonary edema. The cardiomediastinal contour is unremarkable. No acute osseous findings are seen. XR/XR chest 2V IMPRESSION: No acute cardiopulmonary findings.
[2022-01-15 01:48] VITALS: BP 117/77; PULSE 72; RESP 16; TEMP 36.9; O2SAT 99; BMI 27.9
--- NOTE | 2022-01-15 02:24 | ED.CHESTPAIN ---
HPI - Chest Pain General Chief Complaint: Chest Pain Stated Complaint: ?rib pain/no inj Time Seen by Provider: 01/15/22 02:11 Source: patient Mode of arrival: ambulatory Limitations: no limitations History of Present Illness HPI narrative: Patient complaining of pain in the left lower margin of the ribs for last 3 days increases on palpation no shortness of breath no abdominal pain no nausea no vomiting no cough no fever Related Data Home Medications Medication Instructions Recorded Confirmed vitamin with calcium 1 tab PO DAILY 10/29/21 no.72-iron 27 mg-folic acid 1 mg tablet ( Vitamins Plus Low Iron) Previous Rx's Medication Instructions Recorded valacyclovir 500 mg tablet 500 mg PO BID 6 weeks #84 tabs 10/29/21 (Valtrex) ibuprofen 600 mg tablet 600 mg PO Q6H PRN fever or pain 01/15/22 #20 tabs Allergies Allergy/AdvReac Type Severity Reaction Status Date / Time No Known Allergies Allergy Verified 01/15/22 01:51 [No Known Allergies*] Review of Systems Review of Systems: Yes all other systems are reviewed and are negative [facility] Past Medical History Medical History No known health problems Surgical History No pertinent past surgical history Family History Family History Mother HTN (hypertension) Father Diabetes 1.5, managed as type 1 Maternal Grandmother Colon cancer Breast cancer Social History Social History Household Members: Children Housing: Condominium Alcohol intake: never Patient Tobacco Use Status: Never used Tobacco e-Cigarette/Vaping Use: Never Used Second Hand Smoke Exposure: No Substance Use Type: Marijuana Special nimco needs: No Agree to transfusion: Yes Advance Directives: No Advance Directives Information Provided: Yes service: No Current occupational status: employed Gender identity: Female Cognitive needs: No Hearing needs: No Vision needs: No Physical Exam Vital Signs: Vital Signs: Last Vital Signs Temp 98.5 F 01/15/22 01:48 Pulse 72 01/15/22 01:48 Resp 16 01/15/22 01:48 BP 117/77 01/15/22 01:48 Pulse Ox 99 01/15/22 01:48 O2 Del Method 01/15/22 01:48 BMI result Body Mass Index 27.9 Appearance: Alert. Oriented X3. No acute distress. ENT: Pharynx normal. Oral Mucosa moist Neck: Normal inspection. Neck supple. CVS: Normal heart rate and rhythm. Pulses normal. Respiratory: No respiratory distress. Equal air entry bilateral, no wheezing/rales/rhonchi tenderness to left costal margin skin normal Abdomen: Soft and nontender. Bowel sounds are present, no mass palpable, no CVA tenderness Skin: Skin warm and dry. Normal skin color. Normal skin turgor. Extremities: No lower extremity edema. No calf tenderness Neuro: Oriented X 3. MDM - Chest Pain MDM Narrative Medical decision making narrative: Patient's x-ray negative symptoms likely from inflammation of the cartilage discharge patient on Avapro ECG Data ECG #1: Attestation: I personally reviewed and interpreted this ECG as follows: Interpretation: Number sinus rhythm heart rate 78 beats per minute of nitro normal axis impression on EKG Discharge Plan Discharge Clinical Impression: Rib pain on left side Patient Disposition: Home, Self-Care Instructions: Chest Pain (ED) Additional Instructions: Ibuprofen for pain Report to ER if increased shortness of breath/abdominal pain/fever Prescriptions: New ibuprofen 600 mg tablet 600 mg PO Q6H PRN (Reason: fever or pain) Qty: 20 0RF No Action Vitamin Plus Low Iron 27 mg iron- 1 mg tablet 1 tab PO DAILY valacyclovir [Valtrex] 500 mg tablet 500 mg PO BID 42 Days Qty: 84 0RF Rx Instructions: Start 1 tablet twice a day at 36 weeks of gestation Interventions: ED Discharge Assessment Last Done: 01/15/22 02:47 Discharge Date/Time: 01/15/22 02:48
== END 2022-01-15 02:48 | disposition home or self-care (01) ==
PROVIDERS: Emergency Provider Internal Medicine; PCP Internal Medicine
DX: R07.89 Other chest pain (principal); Z79.899 Other long term (current) drug therapy
CPT/HCPCS: 71046; 93005; 99283

== ENCOUNTER 2022-02-23 15:27 | Emergency (ER) | payer OTHER, SELFPAY ==
[2022-02-23 15:44] VITALS: BP 148/96; PULSE 78; RESP 18; TEMP 36.8; O2SAT 99; BMI 29.0
--- NOTE | 2022-02-23 16:00 | ED.URI ---
HPI - URI/Sore Throat General Chief Complaint: General Medical <GIOVANNA Casarez - Last Filed: 02/23/22 16:01> Stated Complaint: Strep Throat <GIOVANNA aCsarez - Last Filed: 02/23/22 16:01> Time Seen by Provider: 02/23/22 16:50 <GIOVANNA Casarez - Last Filed: 02/23/22 16:01> Source: patient <Lia Reynoso NP - Last Filed: 02/23/22 17:45> Mode of arrival: ambulatory <Lia Reynoso NP - Last Filed: 02/23/22 17:45> Limitations: no limitations <Lia Reynoso NP - Last Filed: 02/23/22 17:45> History of Present Illness HPI Narrative: 36-year-old female presents with complaints of sore throat for 2 days after being exposed to family member who has strep throat. No fever no difficulty swallowing, vomiting, diarrhea, chest pain, abdominal pain. <Lia Reynoso NP - Last Filed: 02/23/22 17:45> Related Data Home Medications: Home Medications Medication Instructions Recorded Confirmed vitamin with calcium 1 tab PO DAILY 10/29/21 no.72-iron 27 mg-folic acid 1 mg tablet ( Vitamins Plus Low Iron) Previous Rx's Medication Instructions Recorded valacyclovir 500 mg tablet 500 mg PO BID 6 weeks #84 tabs 10/29/21 (Valtrex) ibuprofen 600 mg tablet 600 mg PO Q6H PRN fever or pain 01/15/22 #20 tabs <GIOVANNA Casarez - Last Filed: 02/23/22 16:01> Allergies/Adverse Reactions: Allergies Allergy/AdvReac Type Severity Reaction Status Date / Time No Known Allergies Allergy Verified 01/15/22 01:51 [No Known Allergies*] <GIOVANNA Casarez Last Filed: 02/23/22 16:01> Review of Systems Review of Systems: Yes all other systems are reviewed and are negative <MILIND Ramos Last Filed: 02/23/22 17:45> Constitutional: Constitutional: Reports no additional constitutional complaints, Denies body ache(s), Denies chills, Denies fever(s), Denies headache(s) and Denies weakness <Lia Reynoso FAMILY RESOURCE MANAGEMENT PROFESSOR - Last Filed: 02/23/22 17:45> Eyes: Eyes: Reports no additional eye complaints and Denies change in vision <Lia Reynoso FAMILY RESOURCE MANAGEMENT PROFESSOR - Last Filed: 02/23/22 17:45> ENT: Reports system reviewed and no additional complaints, except as documented, Denies dizziness, Denies headache(s), Denies nasal congestion, Denies nasal discharge, Denies neck pain and Reports sore throat <Lia Reynoso FAMILY RESOURCE MANAGEMENT PROFESSOR - Last Filed: 02/23/22 17:45> Cardiovascular: Cardiovascular: Reports no additional cardiovascular complaints, Denies chest pain, Denies leg edema and Denies dyspnea <Lia Reynoso FAMILY RESOURCE MANAGEMENT PROFESSOR - Last Filed: 02/23/22 17:45> Respiratory: Respiratory: Reports no additional respiratory complaints, Denies cough and Denies dyspnea <Lia Reynoso NP - Last Filed: 02/23/22 17:45> Gastrointestinal: Gastrointestinal: Reports no additional gastrointestinal complaints, Denies abdominal pain, Denies diarrhea, Denies nausea and Denies vomiting <Lia Reynoso FAMILY RESOURCE MANAGEMENT PROFESSOR - Last Filed: 02/23/22 17:45> Genitourinary: Genitourinary: Reports no additional female genitourinary complaints and Denies urinary incontinence <Lia Reynoso FAMILY RESOURCE MANAGEMENT PROFESSOR - Last Filed: 02/23/22 17:45> Musculoskeletal: Musculoskeletal: Reports no additional musculoskeletal complaints, Denies back pain, Denies arthralgias, Denies joint swelling, Denies neck pain, Denies numbness and Denies tingling <Lia Reynoso FAMILY RESOURCE MANAGEMENT PROFESSOR - Last Filed: 02/23/22 17:45> Integumentary/Breasts: Skin/Breast: Reports system reviewed and no additional complaints, except as docu and Denies rash <Lia Reynoso FAMILY RESOURCE MANAGEMENT PROFESSOR - Last Filed: 02/23/22 17:45> Neurologic: Reports system reviewed and no additional complaints, except as documented, Denies Abnormal speech present, Denies dizziness, Denies headache(s), Denies numbness, Denies tingling and Denies weakness <Lia Reynoso FAMILY RESOURCE MANAGEMENT PROFESSOR - Last Filed: 02/23/22 17:45> [facility] Past Medical History Attestation statement: The following information was validated with the patient. <Lia Reynoso NP - Last Filed: 02/23/22 17:45> Source: old records reviewed and nursing notes reviewed <Lia Reynoso NP - Last Filed: 02/23/22 17:45> Medical History: Medical History No known health problems <GIOVANNA Casarez - Last Filed: 02/23/22 16:01> Surgical History: Surgical History No pertinent past surgical history <GIOVANNA Casarez - Last Filed: 02/23/22 16:01> Family History Family History: Family History Mother HTN (hypertension) Father Diabetes 1.5, managed as type 1 Maternal Grandmother Colon cancer Breast cancer <GIOVANNA Casarez - Last Filed: 02/23/22 16:01> Social History Social History: Social History Household Members: Children Housing: Condominium Alcohol intake: never Patient Tobacco Use Status: Never used Tobacco e-Cigarette/Vaping Use: Never Used Second Hand Smoke Exposure: No Substance Use Type: Marijuana Special nimco needs: No Agree to transfusion: Yes Advance Directives: No Advance Directives Information Provided: Yes service: No Current occupational status: employed Gender identity: Female Cognitive needs: No Hearing needs: No Vision needs: No <GIOVANNA Casarez - Last Filed: 02/23/22 16:01> Physical Exam Vital Signs: Vital Signs: Last Vital Signs Temp 98.3 F 02/23/22 15:44 Pulse 78 02/23/22 15:44 Resp 18 02/23/22 15:44 BP 148/96 H 02/23/22 15:44 Pulse Ox 99 02/23/22 15:44 O2 Del Method 02/23/22 15:44 BMI result Body Mass Index 29.0 <GIOVANNA Casarez - Last Filed: 02/23/22 16:01> Vital Signs: Last Vital Signs Temp 98.3 F 02/23/22 15:44 Pulse 78 02/23/22 15:44 Resp 18 02/23/22 15:44 BP 148/96 H 02/23/22 15:44 Pulse Ox 99 02/23/22 15:44 O2 Del Method 02/23/22 15:44 BMI result Body Mass Index 29.0 <Lia Reynoso NP - Last Filed: 02/23/22 17:45> Const: General: cooperative, healthy appearing, comfortable and no acute distress <Lia Reynoso NP - Last Filed: 02/23/22 17:45> Orientation/consciousness: patient oriented x3 <Lia Reynoso NP - Last Filed: 02/23/22 17:45> Limitations: no limitations <Lia Reynoso NP - Last Filed: 02/23/22 17:45> HEENT: Head: Yes normal to inspection <Lia Reynoso NP - Last Filed: 02/23/22 17:45> Ears: hearing grossly normal bilaterally and TM's normal bilaterally <Lia Reynoso NP - Last Filed: 02/23/22 17:45> General nose exam: Normal external nose present <Lia Reynoso NP - Last Filed: 02/23/22 17:45> Face and sinus: Yes normal facial exam <Lia Reynoso NP - Last Filed: 02/23/22 17:45> Mouth: Normal oral and palatal mucosa present <Lia Reynoso NP - Last Filed: 02/23/22 17:45> Throat: Yes posterior oropharynx normal, Yes tonsils normal and Yes uvula midline <Lia Reynoso NP - Last Filed: 02/23/22 17:45> Eyes: General: appearance normal, both eyes and all related structures <Lia Reynoso NP - Last Filed: 02/23/22 17:45> Pupils: Equal, round and reactive pupils present <Lia Reynoso NP - Last Filed: 02/23/22 17:45> Neck: Neck: Yes normal visual inspection, Yes full ROM, Yes no lymphadenopathy and Yes no meningeal signs <Lia Reynoso NP - Last Filed: 02/23/22 17:45> Chest: Chest palpation & inspection: normal inspection of the chest <Lia Reynoso NP - Last Filed: 02/23/22 17:45> Resp: Effort & Inspection: normal respiratory effort <Lia Reynoso NP - Last Filed: 02/23/22 17:45> Auscultation: clear to auscultation bilaterally <Lia Reynoso FAMILY RESOURCE MANAGEMENT PROFESSOR - Last Filed: 02/23/22 17:45> Cardio: Rate: regular rate <Lia Reynoso NP - Last Filed: 02/23/22 17:45> Rhythm: regular rhythm <Lia Reynoso NP - Last Filed: 02/23/22 17:45> Peripheral pulses: Peripheral pulses 2+ throughout <Lia Reynoso NP - Last Filed: 02/23/22 17:45> GI: Inspection: Yes normal to inspection <Lia Reynoso FAMILY RESOURCE MANAGEMENT PROFESSOR - Last Filed: 02/23/22 17:45> Palpation (GI): Soft to palpation and nontender <Lia Reynoso NP - Last Filed: 02/23/22 17:45> Auscultation: normal bowel sounds <Lia Reynoso NP - Last Filed: 02/23/22 17:45> Back/Spine/Pelvis: Thoracic/Lumbar Spine: thoracic and lumbar spine normal to inspection <Lia Reynoso NP - Last Filed: 02/23/22 17:45> Skin: General skin exam: no rashes or lesions noted <Lia Reynoso NP - Last Filed: 02/23/22 17:45> Neuro: General: patient oriented x3, no meningeal signs, no focal motor deficits and normal sensation to monofilament <Lia Reynoso FAMILY RESOURCE MANAGEMENT PROFESSOR - Last Filed: 02/23/22 17:45> Cranial nerves: Yes Equal, round and reactive pupils present <Lia Reynoso FAMILY RESOURCE MANAGEMENT PROFESSOR - Last Filed: 02/23/22 17:45> Cognition (Neuro): normal cognition <Lia Reynoso NP - Last Filed: 02/23/22 17:45> Speech: No Abnormal speech present <Lia Reynoso NP - Last Filed: 02/23/22 17:45> Gait exam (Neuro): Normal gait present <Lia Reynoso NP - Last Filed: 02/23/22 17:45> Motor exam (neuro): 5/5 motor strength present throughout <Lia Reynoso NP - Last Filed: 02/23/22 17:45> Extrem: General: Yes normal to inspection, Yes no pedal edema and Yes no calf tenderness <Lia Reynoso NP - Last Filed: 02/23/22 17:45> Course Course Course Narrative: 16pm - 36yoF presenting to the ER with complaints of a sore throat for the past 2 days after she was exposed to bacterial pharyngitis from her nephew. She reports that she drank from her nephew's water bottle and since then she has been having sore throat. Her nephew was diagnosed with bacterial pharyngitis and other virus although she is unsure with the viruses. She denies any fevers, ear pain, trouble swallowing or breathing, cough, sputum production, nausea/vomiting, diarrhea or any other symptoms complaints or concerns at this time. Plan: COVID/RSV/flu and rapid strep ordered at this time. Patient is stable she will be sent back to the waiting room for further evaluation treatment to Emergency minor care. <GIOVANNA Casarez - Last Filed: 02/23/22 16:01> Reevaluation(s) Reevaluation #1: Rapid strep is negative. Exam not consistent with strep pharyngitis. Testing for flu, COVID and RSV are negative. Likely viral syndrome. Recommended supportive care at home. Reviewed worrisome signs and symptoms of when to return to the emergency room. Comfortable plan for discharge home. <Lia Reynoso NP - Last Filed: 02/23/22 17:45> Medical Decision Making Medical Decision Making MDM Narrative: 36-year-old female here with sore throat for 2 days with exposure to a family member who has strep pharyngitis. No other symptoms. Exam is benign. Not consistent with strep pharyngitis Swabs for flu, COVID, RSV and strep were sent from triage <Lia Reynoso NP - Last Filed: 02/23/22 17:45> Differential Diagnosis Differential Diagnoses: The differential diagnosis associated with the presentation includes <Lia Reynoso NP - Last Filed: 02/23/22 17:45> Lab Data Labs: Lab Results 02/23/22 02/23/22 Range/Units 16:01 16:01 Influenza Type A (PCR) NEGATIVE (Negative) Influenza Type B (PCR) NEGATIVE (Negative) RSV RNA Qual (PCR) NEGATIVE (Negative) SARS-CoV-2 RNA (RT-PCR) NEGATIVE (Negative) S. pyogenes GrpA DOMINIQUE Negative (Negative) <GIOVANNA Casarez - Last Filed: 02/23/22 16:01> Lab Results 02/23/22 02/23/22 Range/Units 16:01 16:01 Influenza Type A (PCR) NEGATIVE (Negative) Influenza Type B (PCR) NEGATIVE (Negative) RSV RNA Qual (PCR) NEGATIVE (Negative) SARS-CoV-2 RNA (RT-PCR) NEGATIVE (Negative) S. pyogenes GrpA DOMINIQUE Negative (Negative) <Lia Reynoso NP - Last Filed: 02/23/22 17:45> Discharge Plan Discharge Clinical Impression: Acute viral syndrome <GIVOANNA Casarze - Last Filed: 02/23/22 16:01> Patient Disposition: Home, Self-Care <GIOVANNA Casarez - Last Filed: 02/23/22 16:01> Instructions: Viral Syndrome (ED) <GIOVANNA Casarez - Last Filed: 02/23/22 16:01> Additional Instructions: testing for flu, COVID, RSV are negative strep test is negative alternate Motrin or Tylenol for pain or fever as needed increase fluids at home <GIOVANNA Casarez - Last Filed: 02/23/22 16:01> Prescriptions: No Action ibuprofen 600 mg tablet 600 mg PO Q6H PRN (Reason: fever or pain) Qty: 20 0RF Vitamin Plus Low Iron 27 mg iron- 1 mg tablet 1 tab PO DAILY valacyclovir [Valtrex] 500 mg tablet 500 mg PO BID 42 Days Qty: 84 0RF Rx Instructions: Start 1 tablet twice a day at 36 weeks of gestation <GIOVANNA Casarez - Last Filed: 02/23/22 16:01> Referrals: Armand Art MD [Primary Care Provider] - 1 week <GIOVANNA Casarez - Last Filed: 02/23/22 16:01> Interventions: ED Discharge Assessment Last Done: 02/23/22 17:42 <GIOVANNA Casarez - Last Filed: 02/23/22 16:01> Discharge Date/Time: 02/23/22 17:42 <GIOVANNA Casarez - Last Filed: 02/23/22 16:01>
--- OUTSIDE RECORDS SUMMARY | 2022-02-23 16:07 | XMS_ITS | Continuity of Care Document ---
:1985 Author Organization [facility] Address [address] [place] [address]- Care Team Providers Name Role Phone Not on Staff, PCP Primary Care Physician Unavailable [place] [facility] [place]): 11/24/21 - 11/26/[address] [address] Discharge Disposition: A-D/C Home Attending Physician: Dre Valiente MD Admitting Physician: Dre Valiente MD Referring Physician: Dre Valiente MD Allergies, Adverse Reactions, Alerts No Known Allergies Immunizations Given and Recorded Vaccine Date Status Refusal Reason tetanus/diphtheria/pertussis, acel(Tdap) 11/24/21 Given tetanus/diphtheria/pertussis, acel(Tdap) 07/05/17 Recorde d SARS-CoV-2 (COVID-19) mRNA BNT-162b2 vac 08/18/20 Recorde d SARS-CoV-2 (COVID-19) mRNA BNT-162b2 vac 07/28/20 Recorde d diphtheria/tetanus/pertussis, acel(DTaP) 08/02/14 Recorde d Human Papillomavirus Vaccine 10/01/08 Recorded Medications acetaminophen 500 mg oral tablet 1 tablet = 500 mg, By Mouth, Every 4 hours, PRN as needed for pain, # 24 tablet, 0 Refills, Maintenance, 11/26/21 16:52:00 EDT, Tablet, [facility]/pharmacy #[id number], Partial fill upon patient request if the prescription is for a schedule II opioid drug., 168, c... Start Date: 11/26/21 Status: Orderedibuprofen 600 mg oral tablet 600 mg, 1, tablet, By Mouth, 4 times a day, PRN, # 40 tablet, Refills 0, Tot. Refills 0, Maintenance, for pain, 11/26/21 16:51:00 EDT, Route to Pharmacy Electronically, [facility]/pharmacy #[id number], Partial fillupon patient request if the prescription is for a... Start Date: 11/26/21 Status: OrderedNIFEdipine 30 mg oral tablet, extended release 30 mg, 1, tablet, By Mouth, Daily, # 30 tablet, Refills 0, Tot. Refills 0, Maintenance, 11/27/21 2:35:00 EDT, Route to Pharmacy Electronically, [facility]/pharmacy #[id number], Partial fill upon patient request if the prescription is for a schedule II opioid drug.... Start Date: 11/27/21 Status: OrderedPrenatal Multivitamins with FA 0.8 mg oral tablet 1 tablet, By Mouth, Daily, # 60 tablet, 0 Refills, Maintenance, 11/05/21 10:28:00 EDT, Tablet, Partial fill upon patient request if the prescription is for a schedule II opioid drug. Start Date: 11/05/21 Status: Ordered Problem List Condition Effective Dates Status Health Status Informant Learning disability(Confirmed) Active Elevated blood-pressure reading Active without diagnosis of hypertension(Confirmed) Genital HSV(Confirmed) Active History of kidney stones(Confirmed) Active Anxiety and depression(Confirmed) Active AMA (advanced maternal age) Active multigravida 35+(Confirmed) Obese class I(Confirmed) Active Unwanted fertility(Confirmed) Active Vital Signs Most recent to oldest 1 2 3 [Reference Range]: Height 168 cm 168 cm 168 cm (11/26/21 12:03 PM) (11/26/21 8:30 AM) (11/26/21 12 :00 AM) Weight 87 kg 87.0 kg (11/24/21 4:46 PM) (11/24/21 10:41 AM) Oxygen Saturation [94-100 %] 98 % 99 % 100 % (11/26/21 12:00 AM) (11/25/21 10:55 AM) (11/25/21 9 :31 AM) Pulse Rate [55-90 bpm] 93 bpm 87 bpm 77 bpm *H* (11/26/21 12:03 PM) (11/26/21 8:30 AM) (11/26/21 3:16 PM) Body Mass Index [18.5-24.99] 30.82 *>HHI* (11/24/21 4:46 PM) Blood Pressure [90-138/55-84 136/74 mm Hg 138/88 mm Hg 124 /86 mm Hg mm Hg] (11/26/21 3:16 PM) (11/26/21 12:03 PM) (11/26/21 8: 30 AM) Respiratory Rate [16-30 18 br/min 18 br/min 74 br/mi n br/min] (11/26/21 12:03 PM) (11/26/21 8:30 AM) *H* (11/26/21 6:00 AM ) Temperature [96.8-100.4 98.1 DegF 97.9 DegF 98.4 Deg F DegF] (11/26/21 8:30 AM) (11/26/21 12:00 AM) (11/25/21 10 :55 AM) Mode of Delivery (Oxygen) Room air Room air Room a ir (11/26/21 12:00 AM) (11/25/21 10:55 AM) (11/25/21 4 :17 AM) Blood pressure sites Arm, left Arm, left Arm, left (11/26/21 6:00 AM) (11/26/21 4:00 AM) (11/26/21 2:0 0 AM) Temperature Route Oral Oral Oral (11/26/21 8:30 AM) (11/26/21 12:00 AM) (11/25/21 10 :55 AM) Dry Weight 87 kg (11/24/21 4:46 PM) Weight Obtained Via Standing scale (11/24/21 10:41 AM) Social History Social History Type Response Tobacco Use: 4 or less cigarettes(le ss than 1/4 pack)/day in last 30 days. Sex Care Team PersonnelName: Not on Staff, PCP
--- OUTSIDE RECORDS SUMMARY | 2022-02-23 16:07 | XMS_ITS | Continuity of Care Document ---
:1985 Author Organization [facility] Address [address] [place] [address]- Care Team Providers Name Role Phone Not on Staff, PCP Primary Care Physician Unavailable Encounter [facility] Date(s): 09/23/21 - 10/23/21 [facility] [address] [place], [place] [address] Allergies, Adverse Reactions, Alerts No Known Allergies
--- OUTSIDE RECORDS SUMMARY | 2022-02-23 16:07 | XMS_ITS | Continuity of Care Document ---
:1985 Author Organization [facility] Address [address] [place] [address]- Care Team Providers Name Role Phone Not on Staff, PCP Primary Care Physician Unavailable Encounter [facility] Date(s): 10/23/21 - 10/23/[address] [address] Discharge Disposition: A-D/C Home Attending Physician: Candace Alvarado MD Admitting Physician: Candace Alvarado MD Referring Physician: Lizzeth Weinberg DO Allergies, Adverse Reactions, Alerts No Known Allergies
--- OUTSIDE RECORDS SUMMARY | 2022-02-23 16:08 | XMS_ITS | Continuity of Care Document ---
:1985 Author Organization [facility] Address [address] [place] [address]- Care Team Providers Name Role Phone Not on Staff, PCP Primary Care Physician Unavailable Encounter [facility] [place] Date(s): 11/26/21 - 11/27/[address] [address] Discharge Disposition: A-D/C Home Attending Physician: Shantelle Duke MD Admitting Physician: Shantelle Duke MD Referring Physician: Shantelle Duke MD Allergies, Adverse Reactions, Alerts No Known [...] 0 Refills, Maintenance, 11/26/21 16:52:00 EDT, Tablet, [id number], Partial fill upon patient request if the prescription is for a schedule II opioid drug., 168, c... Start Date: 11/26/21 Status: Orderedibuprofen 600 mg oral tablet 600 mg, 1, tablet, By Mouth, 4 times a day, PRN, # 40 tablet, Refills 0, Tot. Refills 0, Maintenance, for pain, 11/26/21 16:51:00 EDT, Route to Pharmacy Electronically, [facility]/pharmacy #[id number], Partial fillupon patient request if the prescription is for a... Start Date: 11/26/21 Status: OrderedNIFEdipine 30 mg oral tablet, extended release 30 mg, ER Tablet, By Mouth, Once, STAT, 11/27/21 2:30:00 EDT, Stop date 11/27/21 2:30:00 EDT Notes: Do Not Crush. Start Date: 11/27/21 Stop Date: 11/27/21 Status: CompletedNIFEdipine 30 mg oral tablet, extended release 30 mg, 1, tablet, By Mouth, Daily, # 30 tablet, Refills 0, Tot. Refills 0, Maintenance, 11/27/21 2:35:00 EDT, Route to Pharmacy Electronically, [facility]/pharmacy #[id number], Partial fill upon patient request if [...] 2 3 [Reference Range]: Height 168 cm (11/26/21 10:56 PM) Weight 83.5 kg (11/26/21 10:45 PM) Oxygen Saturation [94-100 %] 99 % 98 % 98 % (11/27/21 2:45 AM) (11/27/21 2:30 AM) (11/27/21 2:1 5 AM) Pulse Rate [55-90 bpm] 96 bpm *H* (11/26/21 10:56 PM) Blood Pressure [90-138/55-84 147/97 mm Hg 143/95 mm Hg 135 /83 mm Hg mm Hg] *H* *H* (11/27/21 2:30 AM ) (11/27/21 3:07 AM) (11/27/21 2:45 AM) Respiratory Rate [16-30 18 br/min br/min] (11/26/21 10:56 PM) Temperature [96.8-100.4 DegF] 98.3 DegF (11/26/21 10:45 PM) Temperature Route Oral Oral (11/26/21 10:56 PM) (11/26/21 10:45 PM) Dry Weight 83.5 kg (11/26/21 10:45 PM) Weight Obtained Via Standing scale (11/26/21 10:45 PM) Dry Weight Obtained Via Standing scale (11/26/21 10:45 PM) Social History Social History Type Response Tobacco Use: 4 or less cigarettes(le ss than 1/4 pack)/day in last 30 days. Sex Care Team PersonnelName: Not on Staff, PCP
--- OUTSIDE RECORDS SUMMARY | 2022-02-23 16:08 | XMS_ITS | Continuity of Care Document ---
:1985 Author Organization [facility] Address [address] [place] [address]- Care Team Providers Name Role Phone Not on Staff, PCP Primary Care Physician Unavailable [place] [facility] [place] - 02/06/[address] [address]- Attending Physician: Not on Staff, Attending MD Allergies, Adverse Reactions, Alerts No Known [...] Refills, Maintenance, 11/26/21 16:52:00 EDT, Tablet, [id number], Partial fill upon patient request if the prescription is for a schedule II opioid drug., 168, c... Start Date: 11/26/21 Status: OrderedDoculase 100 mg oral capsule 1 capsule = 100 mg, By Mouth, 2 times a day, PRN for constipation, # 100 capsule, 0 Refills, Maintenance, 12/26/21 12:00:00 EDT, Capsule, [id number], Partial fill upon patient request if the prescription is for a schedule II opioid drug., 168,... Start Date: 12/26/21 Status: Orderedibuprofen 600 mg oral tablet 600 mg, 1, tablet, By Mouth, 4 times a day, PRN, # 40 tablet, Refills 0, Tot. Refills 0, Maintenance, for pain, 11/26/21 16:51:00 EDT, Route to Pharmacy Electronically, [facility]/pharmacy #[id number], Partial fillupon patient request if the prescription is for a... Start Date: 11/26/21 Status: OrderedNIFEdipine 90 mg oral tablet, extended release 90 mg, 1, tablet, By Mouth, Daily, # 30 tablet, Refills 1, Tot. Refills 1, Maintenance, 12/07/21 10:59:00 EDT, Route to Pharmacy Electronically, [facility]/pharmacy #[id number], Partial fill upon patient request ifthe prescription is for a schedule II opioid drug... Start Date: 12/07/21 Status: OrderedPrenatal Multivitamins with FA 0.8 mg oral tablet 1 tablet, By Mouth, Daily, # 60 tablet, 0 Refills, Maintenance, 11/05/21 10:28:00 EDT, Tablet, Partial fill upon patient request if the prescription is for a schedule II opioid drug. Start Date: 11/05/21 Status: Ordered Problem List Condition Confirmation Course Effective Dates Status Health Stat us Informant Learning disability Confirmed Active Elevated Confirmed Active blood-pressure reading without diagnosis of hypertension Genital HSV Confirmed Active History of kidney Confirmed Active stones Anxiety and Confirmed Active depression AMA (advanced Confirmed Active maternal age) multigravida 35+ Unwanted fertility Confirmed Active Social History Social History Type Response Tobacco Use: 4 or less cigarettes(le ss than 1/4 pack)/day in last 30 days. Sex Patient Care team information Care Team PersonnelName: Not on Staff, PCP Position: S Physician (General Medicine) Member Role: PCP Care Team Related PersonsName: VICKEY VALVERDE Address: [address] [address] Name: VALVERDELAURA Address: [place] Address: [place] [address] [address] [place]
--- OUTSIDE RECORDS SUMMARY | 2022-02-23 16:08 | XMS_ITS | Continuity of Care Document ---
:1985 Author Organization [facility] Address [address] [place] [address]- Care Team Providers Name Role Phone Not on Staff, PCP Primary Care Physician Unavailable Encounter [facility] Date(s): 11/05/21 - 12/05/[address] [address]- Allergies, Adverse Reactions, Alerts No Known Allergies [...] 0 Refills, Maintenance, 11/26/21 16:52:00 EDT, Tablet, [facility]/pharmacy #[id number], Partial fill upon patient request if the prescription is for a schedule II opioid drug., 168, c... Start Date: 11/26/21 Status: Orderedibuprofen 600 mg oral tablet 600 mg, 1, tablet, By Mouth, 4 times a day, PRN, # 40 tablet, Refills 0, Tot. Refills 0, Maintenance, for pain, 11/26/21 16:51:00 EDT, Route to Pharmacy Electronically, [facility]/pharmacy #[id number], Partial fillupon patient request if the prescription is for a... Start Date: 11/26/21 Status: OrderedNIFEdipine 30 mg oral tablet, extended release 60 mg, By Mouth, Daily, # 30 tablet, Refills 0, Tot. Refills 0, Maintenance, 12/03/21 12:21:00 EDT, Route to Pharmacy Electronically, [facility]/pharmacy #[id number], Partial fill upon patient request if the prescription is for a schedule II opioid drug., 168, cm,... Start Date: 12/03/21 Status: OrderedNIFEdipine 30 mg oral tablet, extended release 60 mg, 2, tablet, By Mouth, Daily, # 60 tablet, Refills 2, Tot. Refills 2, Maintenance, 12/03/21 13:25:00 EDT, Route to Pharmacy Electronically, [facility]/pharmacy #[id number], Partial fill upon patient request ifthe prescription is for a schedule II opioid drug... Start Date: 12/03/21 Stop Date: 03/03/22 Status: OrderedPrenatal Multivitamins with FA 0.8 mg [...] AMA (advanced maternal age) Active multigravida 35+(Confirmed) Unwanted fertility(Confirmed) Active Social History Social History Type Response Tobacco Use: 4 or less cigarettes(le ss than 1/4 pack)/day in last 30 days. Sex Care Team PersonnelName: Not on Staff, PCP
--- OUTSIDE RECORDS SUMMARY | 2022-02-23 16:08 | XMS_ITS | Continuity of Care Document ---
:1985 Author Organization [facility] Address [address] [place] [address]- Care Team Providers Name Role Phone Not on Staff, PCP Primary Care Physician Unavailable Encounter [facility] Date(s): 10/30/21 - 10/30/[address] [address] Discharge Disposition: A-D/C Home Attending Physician: Victoria Bolaños MD Admitting Physician: Victoria Bolaños MD Referring Physician: Victoria Bolaños MD Allergies, Adverse Reactions, Alerts No Known Allergies
--- OUTSIDE RECORDS SUMMARY | 2022-02-23 16:08 | XMS_ITS | Continuity of Care Document ---
:1985 Author Organization [facility] Address [address] [place] [address]- Care Team Providers Name Role Phone Armand Art MD Primary Care Physician [id number] Date(s): 08/05/21 - 08/05/[address] [email or web address] Discharge Disposition: A-D/C Home Attending Physician: Dre Valiente MD Admitting Physician: Dre Valiente MD Referring Physician: Dre Valiente MD Allergies, Adverse Reactions, Alerts No Known Allergies Medications Flomax 0.4 mg oral capsule 0.4 mg, 1, capsule, By Mouth, Daily, # 10 capsule, Refills 0, Tot. Refills 0, Maintenance, 08/05/21 12:41:00 EDT, Route to Pharmacy Electronically, [facility]/pharmacy #[id number], Partial fill upon patient requestif the prescription is for a schedule II opioid d... Start Date: 08/05/21 Status: OrderedoxyCODONE 5 mg oral tablet 5 mg, 1, tablet, By Mouth, Every 6 hours, PRN, # 10 tablet, Refills 0, Tot. Refills 0, Maintenance, for pain, 08/05/21 12:41:00 EDT, Route to Pharmacy Electronically, [facility]/pharmacy #[id number], Partial fill upon patient request Start Date: 08/05/21 Status: OrderedTylenol 325 mg oral tablet 975 mg, Tablet, By Mouth, Once, PRN for Pain , Moderate, Routine, 08/05/21 11:32:00 EDT Start Date: 08/05/21 Stop Date: 08/05/21 Status: Completed Results Orders for Microbiology Reports Name Date Urine Culture 08/05/21 Microbiology Reports TEST:Urine Culture STATUS:Unauthenticated BODY SITE: SOURCE:URINE COLLECTED DATE/TIME:08/05/21 10:30 AMUrine Culture SPECIMEN DESCRIPTION : URINE SPECIAL REQUESTS : NONE REPORT STATUS : PRELIMINARY REPORT Vital Signs Most recent to oldest [Reference Range]: 1 2 Weight 81.9 kg (08/05/21 10:54 AM) Oxygen Saturation [94-100 %] 98 % (08/05/21 10:54 AM) Blood Pressure [90-138/55-84 mm Hg] 119/74 mm Hg (08/05/21 10:54 AM) Respiratory Rate [16-30 br/min] 18 br/min 18 br/mi n (08/05/21 12:04 PM) (08/05/21 10:54 AM) Temperature [96.8-100.4 DegF] 97.3 DegF (08/05/21 10:54 AM) Mode of Delivery (Oxygen) Room air (08/05/21 10:54 AM) Blood pressure sites Leg, left (08/05/21 10:54 AM)
--- OUTSIDE RECORDS SUMMARY | 2022-02-23 16:08 | XMS_ITS | Continuity of Care Document ---
:1985 Author Organization [facility] Address [address] [place] [address]- Care Team Providers Name Role Phone Not on Staff, PCP Primary Care Physician Unavailable [place] [facility] [place](s): 01/14/22 - 01/15/[address] [address] Discharge Disposition: A-D/C Home Attending Physician: Ryan Pinead MD Admitting Physician: Ryan Pineda MD Referring Physician: Ryan Pineda MD Allergies, Adverse Reactions, Alerts No Known [...] 11/26/21 16:51:00 EDT, Route to Pharmacy Electronically, [facility]/pharmacy #[id number], Partial fillupon patient request if the prescription is for a... Start Date: 11/26/21 Status: OrderedNIFEdipine 90 mg oral tablet, extended release 90 mg, 1, tablet, By Mouth, Daily, # 30 tablet, Refills 1, Tot. Refills 1, Maintenance, 12/07/21 10:59:00 EDT, Route to Pharmacy Electronically, [facility]/pharmacy #[id number], Partial fill upon patient request ifthe [...] age) multigravida 35+ Unwanted fertility Confirmed Active Vital Signs Most recent to oldest [Reference Range]: 1 Height 168 cm (01/14/22 11:30 PM) Weight 80.6 kg (01/14/22 11:22 PM) Oxygen Saturation [94-100 %] 100 % (01/14/22:22 PM) Pulse Rate [55-90 bpm] 91 bpm *H* (01/14/22 11:22 PM) Blood Pressure [90-138/55-84 mm Hg] 116/79 mm Hg (01/14/22 11:22 PM) Temperature [96.8-100.4 DegF] 98.4 DegF (01/14/22 11: PM) Mode of Delivery (Oxygen) Room air (01/14/22 11:22 PM) Blood pressure sites Arm, right (01/14/22 11:22 PM) Temperature Route Oral (01/14/22 11:22 PM) Dry Weight 80.6 kg (01/14/22 11:22 PM) Weight Obtained Via Standing scale (01/14/22 11:22 PM) Dry Weight Obtained Via Standing scale (01/14/22 11:22 PM) Social History Social History Type Response Tobacco Use: 4 or less cigarettes(le ss than 1/4 pack)/day in last 30 days. Sex Patient Care team information PersonnelName: Not on Staff, PCP
--- OUTSIDE RECORDS SUMMARY | 2022-02-23 16:08 | XMS_ITS | Continuity of Care Document ---
:1985 Author Organization [facility] Address [address] [place] [address]- Care Team Providers Name Role Phone Not on Staff, PCP Primary Care Physician Unavailable Encounter [facility] Date(s): 10/19/21 - 10/21/[address] [address] Discharge Disposition: A-D/C Home Attending Physician: Dre Valiente MD Admitting Physician: Dre Valiente MD Referring Physician: Dre Valiente MD Allergies, Adverse Reactions, Alerts No Known Allergies Medications No Known Medications Vital Signs Most recent to oldest 1 2 3 [Reference Range]: Height 168 cm (10/19/21 1:56 PM) Weight 82.2 kg 82.2 kg (10/19/21 7:17 PM) (10/19/21 1:56 PM) Oxygen Saturation [94-100 %] 100 % 99 % 99 % (10/20/21 4:37 PM) (10/20/21 11:12 AM) (10/20/21 7:25 AM) Pulse Rate [55-90 bpm] 73 bpm (10/19/21 1:56 PM) Body Mass Index [18.5-24.99] 29.12 *H* (10/19/21 1:56 PM) Blood Pressure [90-138/55-84 mm 136/71 mm Hg 120/73 mm Hg 127/87 mm Hg Hg] (10/21/21 7:00 AM) (10/20/21 8:00 PM) (10/20/21 4:37 PM) Respiratory Rate [16-30 br/min] 18 br/min 17 br/min (10/19/21 1:56 PM) (10/19/21 1:10 PM) Temperature [96.8-100.4 DegF] 97.8 DegF 98.1 DegF 98 .1 DegF (10/21/21 7:00 AM) (10/20/21 8:00 PM) (10/20/21 4:37 PM) Mode of Delivery (Oxygen) Room air Room air Room a ir (10/19/21 1:56 PM) (10/19/21 1:26 PM) (10/19/21 1:10 P M) Blood pressure sites Arm, right Arm, right (10/19/21 1:56 PM) (10/19/21 1:14 PM) Temperature Route Oral Oral Oral (10/20/21 8:00 PM) (10/20/21 4:37 PM) (10/20/21 11:12 AM) Dry Weight 82.2 kg (10/19/21 1:56 PM) Weight Obtained Via Standing scale (10/19/21 7:17 PM)
--- OUTSIDE RECORDS SUMMARY | 2022-02-23 16:08 | XMS_ITS | Continuity of Care Document ---
:1985 Author Organization [facility] Address [address] [place] [address]- Care Team Providers Name Role Phone Not on Staff, PCP Primary Care Physician Unavailable [facility]counter [facility] Date(s): 11/05/21 - 11/12/21 [facility] [address] [place] [address]- Attending Physician: Not on Staff, Attending MD Allergies, Adverse Reactions, Alerts No Known Allergies Immunizations Given and Recorded Vaccine Date Status Refusal Reason SARS-CoV-2 (COVID-19) mRNA BNT-162b2 vac 08/18/20 Recorde d SARS-CoV-2 (COVID-19) mRNA BNT-162b2 vac 07/28/20 Recorde d tetanus/diphtheria/pertussis, acel(Tdap) 07/05/17 Recorde d diphtheria/tetanus/pertussis, acel(DTaP) 08/02/14 Recorde d Human Papillomavirus Vaccine 10/01/08 Recorded Medications aspirin 81 mg oral delayed release tablet 81 mg, 1, tablet, By Mouth, Daily, # 30 tablet, Refills 0, Maintenance, 11/05/21 10:28:00 EDT, Partial fill upon patient request if the prescription is for a schedule II opioid drug. Start Date: 11/05/21 Status: OrderedPrenatal Multivitamins with FA 0.8 mg oral tablet 1 tablet, By Mouth, Daily, # 60 tablet, 0 Refills, Maintenance, 11/05/21 10:28:00 EDT, Tablet, Partial fill upon patient request if the prescription is for a schedule II opioid drug. Start Date: 11/05/21 Status: Orderedtamsulosin 0.4 mg oral capsule 0.4 mg, 1, capsule, By Mouth, Daily, # 30 capsule, Refills 0, Maintenance, 11/05/21 10:29:00 EDT, Partial fill upon patient request if the prescription is for a schedule II opioid drug. Start Date: 11/05/21 Status: OrderedvalACYclovir 500 mg oral tablet 500 mg, 1, tablet, By Mouth, 2 times a day, # 60 tablet, Refills 1, Maintenance, 11/05/21 10:46:00 EDT, Partial fill upon patient request if the prescription is for a schedule II opioid drug. Start Date: 11/05/21 Stop Date: 12/05/21 Status: Ordered Problem List Condition Effective Dates Status Health Status Informant Learning disability(Confirmed) Active Elevated blood-pressure reading Active without diagnosis of hypertension(Confirmed) Genital HSV(Confirmed) Active History of kidney stones(Confirmed) Active Anxiety and depression(Confirmed) Active AMA (advanced maternal age) Active multigravida 35+(Confirmed) Unwanted fertility(Confirmed) Active Care Team PersonnelName: Not on Staff, PCP
--- OUTSIDE RECORDS SUMMARY | 2022-02-23 16:08 | XMS_ITS | Continuity of Care Document ---
:1985 Author Organization [facility] Address [address] [place] [address]- Care Team Providers Name Role Phone Not on Staff, PCP Primary Care Physician Unavailable Encounter [facility] [place] Date(s): 11/13/21 - 12/24/[address] [address]- Attending Physician: Not on Staff, Attending MD Referring Physician: Lizzeth Weinberg DO Allergies, [...] Refills, Maintenance, 11/26/21 16:52:00 EDT, Tablet, [id number], Partial fill upon patient request if the prescription is for a schedule II opioid drug., 168, c... Start Date: 11/26/21 Status: Orderedibuprofen 600 mg oral tablet 600 mg, 1, tablet, By Mouth, 4 times a day, PRN, # 40 tablet, Refills 0, Tot. Refills 0, Maintenance, for pain, 11/26/21 16:51:00 EDT, Route to Pharmacy Electronically, [id number], Partial fillupon patient request if the prescription is for a... Start Date: 11/26/21 Status: OrderedNIFEdipine 90 mg oral tablet, extended release 90 mg, 1, tablet, By Mouth, Daily, # 30 tablet, Refills 1, Tot. Refills 1, Maintenance, 12/07/21 10:59:00 EDT, [id number] Partial fill upon patient request ifthe [...]
--- OUTSIDE RECORDS SUMMARY | 2022-02-23 16:08 | XMS_ITS | Continuity of Care Document ---
:1985 Author Organization [facility] Address [address] [place] [address]- Care Team Providers Name Role Phone Not on Staff, PCP Primary Care Physician Unavailable [place] [facility] [place] [facility] [address] [place] [address]- Allergies, Adverse Reactions, Alerts No Known Allergies [...] 11/26/21 16:51:00 EDT, Route to Pharmacy Electronically, [facility]/pharmacy #[id number], Partial fillupon patient request if the prescription is for a... Start Date: 11/26/21 Status: OrderedNIFEdipine 90 mg oral tablet, extended release 90 mg, 1, tablet, By Mouth, Daily, # 30 tablet, Refills 1, Tot. Refills 1, Maintenance, 12/07/21 10:59:00 EDT, Route to Pharmacy Electronically, [id number], Partial fill upon patient request ifthe prescription is for a schedule II opioid drug... Start Date: 12/07/21 Status: OrderedPrenatal Multivitamins with FA 0.8 mg oral tablet 1 tablet, By Mouth, Daily, # 60 tablet, 0 Refills, Maintenance, 11/05/21 10:28:00 EDT, Tablet, Partial fill upon patient request if the prescription is for a schedule II opioid drug. Start Date: 11/05/21 Status: OrderedPreparation H 14%-74.9%-0.25% rectal ointment 1 application, Rectally, 2 times a day, PRN as needed for itching, for 14 days, # 57 Gm, 0 Refills, Acute 01/09/22 12:04:00 EDT, 12/26/21 12:04:00 EDT, Ointment, [facility]/pharmacy #[id number], Partial fill upon patient request if the prescription is for a schedu... Start Date: 12/26/21 Stop Date: 01/09/22 Status: Ordered Problem List Condition Confirmation Course [...]
--- OUTSIDE RECORDS SUMMARY | 2022-02-23 16:08 | XMS_ITS | Continuity of Care Document ---
:1985 Author Organization [facility] Address [address] [place] [address]- Care Team Providers Name Role Phone Not on Staff, PCP Primary Care Physician Unavailable [place] [facility] [place](s[place] 01/07/22 - 02/06/[address] [address]- Attending Physician: Edita Anderson Admitting Physician: AdmEdita suh Referring Physician: AdmtrEdita Allergies, Adverse Reactions, Alerts No Known Allergies [...] 10:59:00 EDT, Route to Pharmacy Electronically, [facility]/pharmacy #[id number], Partial fill upon patient request ifthe [...] Related PersonsName: VICKEY VALVERDE Address: home [address] [address] Name: ABRAMLAURA Address: [place] Address: [address] [address] [place]
--- OUTSIDE RECORDS SUMMARY | 2022-02-23 16:08 | XMS_ITS | Continuity of Care Document ---
:1985 Author Organization [facility] Address [address] [place] [address]- Care Team Providers Name Role Phone Not on Staff, PCP Primary Care Physician Unavailable Encounter [facility] Date(s): 11/05/21 - 12/05/21 [facility] [address] [place] [address]- Attending Physician: Edita Anderson Admitting Physician: Edita Anderson Referring Physician: AdmtrEdita Allergies, Adverse Reactions, Alerts [...] 0 Refills, Maintenance, 11/26/21 16:52:00 EDT, Tablet, [facility]/pharmacy #[id number], Partial fill upon patient request if the prescription is for a schedule II opioid drug., 168, c... Start Date: 11/26/21 Status: Orderedibuprofen 600 mg oral tablet 600 mg, 1, tablet, By Mouth, 4 times a day, PRN, # 40 tablet, Refills 0, Tot. Refills 0, Maintenance, for pain, 11/26/21 16:51:00 EDT, Route to Pharmacy Electronically, [facility]/pharmacy #[id number], Partial fillupon patient request if the prescription is for a... Start Date: 11/26/21 Status: OrderedNIFEdipine 30 mg oral tablet, extended release 60 mg, By Mouth, Daily, # 30 tablet, Refills 0, Tot. Refills 0, Maintenance, 12/03/21 12:21:00 EDT, Route to Pharmacy Electronically, [facility]/pharmacy #[id number], Partial fill upon patient request if the prescription is for a schedule II opioid drug., 168, cm,... Start Date: 12/03/21 Status: OrderedNIFEdipine 30 mg oral tablet, extended release 60 mg, 2, tablet, By Mouth, Daily, # 60 tablet, Refills 2, Tot. Refills 2, Maintenance, 12/03/21 13:25:00 EDT, Route to Pharmacy Electronically, [facility]/pharmacy #[id number], Partial fill upon patient request [...]
--- OUTSIDE RECORDS SUMMARY | 2022-02-23 16:08 | XMS_ITS | Continuity of Care Document ---
:1985 Author Organization [facility] Address [address] [place] [address]- Care Team Providers Name Role Phone Not on Staff, PCP Primary Care Physician Unavailable [place] [facility] [place] - 12/03/[address] [address] Discharge Disposition: A-D/C Home Attending Physician: [...] Refills, Maintenance, 11/26/21 16:52:00 EDT, Tablet, [id number], Partial fill upon patient request if the prescription is for a schedule II opioid drug., 168, c... Start Date: 11/26/21 Status: Orderedibuprofen 600 mg oral tablet 600 mg, 1, tablet, By Mouth, 4 times a day, PRN, # 40 tablet, Refills 0, Tot. Refills 0, Maintenance, for pain, 11/26/21 16:51:00 EDT, Route to Pharmacy Electronically, [facility]/pharmacy #[id number], Partial fillupon patient request if the prescription is for a... Start Date: 11/26/21 Status: OrderedNIFEdipine 30 mg oral tablet, extended release 60 mg, By Mouth, Daily, # 30 tablet, Refills 0, Tot. Refills 0, Maintenance, 12/03/21 12:21:00 EDT, Route to Pharmacy Electronically, [facility]/pharmacy #[id number], Partial fill upon patient request if the prescription is for a schedule II opioid drug., 168, cm,... Start Date: 12/03/21 Status: OrderedNIFEdipine 30 mg oral tablet, extended release 60 mg, 2, tablet, By Mouth, Daily, # 60 tablet, Refills 2, Tot. Refills 2, Maintenance, 12/03/21 13:25:00 EDT, Route to Pharmacy Electronically, [facility]/pharmacy #[id number], Partial fill upon patient [...] age) Active multigravida 35+(Confirmed) Unwanted fertility(Confirmed) Active Vital Signs Most recent to oldest 1 2 3 [Reference Range]: Height 168 cm (12/01/21 10:48 PM) Weight 81.8 kg 83.5 kg 81.1 kg (12/03/21 8:47 AM) (12/01/21 10:48 PM) (12/01/21 5: 46 PM) Oxygen Saturation [94-100 %] 97 % 98 % 98 % (12/02/21 11:00 PM) (12/02/21 10:00 PM) (12/02/21 9 :00 PM) Pulse Rate [55-90 bpm] 81 bpm (12/01/21 10:48 PM) Body Mass Index [18.5-24.99 29.58 kg/m2 kg/m2] *H* (12/01/21 10:48 PM) Blood Pressure [90-138/55-84 132/82 mm Hg 136/88 mm Hg 135 /83 mm Hg mm Hg] (12/03/21 1:31 PM) (12/03/21 11:01 AM) (12/03/21 8: 47 AM) Respiratory Rate [16-30 18 br/min 18 br/min 18 br/mi n br/min] (12/03/21 8:47 AM) (12/03/21 4:28 AM) (12/02/21 11: 00 PM) Temperature [96.8-100.4 98.0 DegF 98.2 DegF 98.0 Deg F DegF] (12/03/21 8:47 AM) (12/02/21 8:00 PM) (12/02/21 5:0 0 PM) Mode of Delivery (Oxygen) Room air Room air Room a ir (12/02/21 5:00 PM) (12/02/21 4:00 PM) (12/02/21 2:0 0 PM) Blood pressure sites Arm, right Arm, right Arm, right (12/03/21 8:47 AM) (12/01/21 10:48 PM) (12/01/21 6: 44 PM) Temperature Route Oral Oral Oral (12/03/21 8:47 AM) (12/02/21 8:00 PM) (12/02/21 5:0 0 PM) Dry Weight 83.5 kg (12/01/21 10:48 PM) Weight Obtained Via Standing scale Standing scale (12/03/21 8:47 AM) (12/01/21 5:46 PM) Social History Social History Type Response Tobacco Use: 4 or less cigarettes(le ss than 1/4 pack)/day in last 30 days. Sex Care Team PersonnelName: Not on Staff, PCP
--- OUTSIDE RECORDS SUMMARY | 2022-02-23 16:08 | XMS_ITS | Continuity of Care Document ---
:1985 Author Organization [facility] Address [address] [place] [address]- Care Team Providers Name Role Phone Not on Staff, PCP Primary Care Physician Unavailable Encounter [facility] [place] Date(s): 10/27/21 - 12/12/[address] [address]- Attending Physician: Not on Staff, Attending MD Referring Physician: Francisco Drake DO Allergies, Adverse Reactions, Alerts No Known [...] 0 Refills, Maintenance, 11/26/21 16:52:00 EDT, Tablet, [facility]/pharmacy #[id number], Partial fill upon patient request [...] 12/07/21 10:59:00 EDT, [id number] upon [...]
--- OUTSIDE RECORDS SUMMARY | 2022-02-23 16:08 | XMS_ITS | Continuity of Care Document ---
:1985 Author Organization [facility] Address [address] [place] [address]- Care Team Providers Name Role Phone Kaelyn LAWSON, Armand Mueller Primary Care Physician Encounter [facility] [place] Date(s): 08/06/21 - 09/05/[address] [id number] Allergies, Adverse Reactions, Alerts No Known Allergies Medications aspirin 81 mg oral tablet, chewable 81 mg, 1, tablet, By Mouth, Daily, # 30 tablet, Refills 0, Maintenance, 08/29/21 12:07:00 EDT, Partial fill upon patient request if the prescription is for a schedule II opioid drug. Start Date: 08/29/21 Status: OrderedFlomax 0.4 mg oral capsule 0.4 mg, 1, capsule, By Mouth, Daily, # 10 capsule, Refills 0, Tot. Refills 0, Maintenance, 08/05/21 12:41:00 EDT, Route to Pharmacy Electronically, [facility]/pharmacy #[id number], Partial fill upon patient requestif the prescription is for a schedule II opioid d... Start Date: 08/05/21 Status: OrderedoxyCODONE 5 mg oral tablet 5 mg, 1, tablet, By Mouth, Every 6 hours, PRN, # 10 tablet, Refills 0, Tot. Refills 0, Maintenance, for pain, 08/05/21 12:41:00 EDT, Route to Pharmacy Electronically, [facility]/pharmacy #[id number], Partial fill upon patient request Start Date: 08/05/21 Status: OrderedPrenatal Multivitamins with Vitamin B Complex, Vitamin C, Minerals and L-Methylfolate oral capsule 1 capsule, By Mouth, Daily, 0 Refills, Maintenance, 08/29/21 12:07:00 EDT, Capsule, Partial fill upon patient request if the prescription is for a schedule II opioid drug. Start Date: 08/29/21 Status: OrderedZofran 4 mg oral tablet 1 tablet = 4 mg, By Mouth, Every 8 hours, # 15 tablet, 0 Refills, Maintenance, 08/08/21 4:32:00 EDT,Tablet, [facility]/pharmacy #[id number], Partial fill upon patient request if the prescription is for a schedule II opioid drug., 168, cm, 08/08/21 1:20:00 EDT, .. Start Date: 08/08/21 Status: Ordered
--- OUTSIDE RECORDS SUMMARY | 2022-02-23 16:08 | XMS_ITS | Continuity of Care Document ---
:1985 Author Organization [facility] Address [address] [place] [address]- Care Team Providers Name Role Phone Not on Staff, PCP Primary Care Physician Unavailable Encounter [facility] [place] Date(s): 10/27/21 - 12/05/21 [facility] [address] [place] [address]- Attending Physician: Not on Staff, Attending MD Referring Physician: Radha LAWSON, Lynda Sun Allergies, Adverse Reactions, Alerts No Known Allergies [...] 0 Refills, Maintenance, 11/26/21 16:52:00 EDT, Tablet, [facility]/pharmacy #[id number], Partial fill upon patient request if the prescription is for a schedule II opioid drug., 168, c... Start Date: 11/26/21 Status: Orderedibuprofen 600 mg oral tablet 600 mg, 1, tablet, By Mouth, 4 times a day, PRN, # 40 tablet, Refills 0, Tot. Refills 0, Maintenance, for pain, 11/26/21 16:51:00 EDT, Route to Pharmacy Electronically, [facility]/pharmacy #[id number], Partial fillupon patient request if the prescription is for a... Start Date: 11/26/21 Status: OrderedNIFEdipine 30 mg oral tablet, extended release 60 mg, By Mouth, Daily, # 30 tablet, Refills 0, Tot. Refills 0, Maintenance, 12/03/21 12:21:00 EDT, Route to Pharmacy Electronically, [facility]/pharmacy #[id number], Partial fill upon patient request if the prescription is for a schedule II opioid drug., 168, cm,... Start Date: 12/03/21 Status: OrderedNIFEdipine 30 mg oral tablet, extended release 60 mg, 2, tablet, By Mouth, Daily, # 60 tablet, Refills 2, Tot. Refills 2, Maintenance, 12/03/21 13:25:00 EDT, [facility] [...] oldest [Reference Range]: 1 Height 168 cm (11/05/21 10:19 AM) Social History Social History Type Response Tobacco Use: 4 or less cigarettes(le ss than 1/4 pack)/day in last 30 days. Sex Care Team PersonnelName: Not on Staff, PCP
--- OUTSIDE RECORDS SUMMARY | 2022-02-23 16:08 | XMS_ITS | Continuity of Care Document ---
:1985 Author Organization [facility] [facility] Address [address] [place] [address], [address] [place] [phone]- Care Team Providers Name Role Phone Not on Staff, PCP Primary Care Physician Unavailable En[place] [facility] [place](s): 08/29/21 - 09/28/21 [facility] [employer] [facility] [address] [place] [address], [address] [place] [id number] Allergies, Adverse Reactions, Alerts No Known Allergies [...] 08/05/21 12:41:00 EDT, Route to Pharmacy Electronically, [facility]/pharmacy #[id number], Partial fill upon patient requestif the prescription is for a schedule II opioid d... Start Date: 08/05/21 Status: OrderedoxyCODONE 5 mg oral tablet 5 mg, 1, tablet, By Mouth, Every 6 hours, PRN, # 10 tablet, Refills 0, Tot. Refills 0, Maintenance, for pain, 08/05/21 12:41:00 EDT, Route to Pharmacy Electronically, [facility]/pharmacy #[id number], Partial fill upon patient request Start [...] tablet, 0 Refills, Maintenance, 08/08/21 4:32:00 EDT,Tablet, [facility]/pharmacy #[id number], Partial fill upon patient request if the prescription is for a schedule II opioid drug., 168, cm, 08/08/21 1:20:00 EDTShannan. Start Date: 08/08/21 Status: Ordered
[2022-02-23 16:23] LABS: Strep A Nucleic Acid Negative (Negative)
[2022-02-23 16:59] LABS: Influenza A PCR NEGATIVE (Negative); Influenza B PCR NEGATIVE (Negative); Resp Syncy Virus RNA Qual PCR NEGATIVE (Negative); SARS COV2 PCR INHOUSE NEGATIVE (Negative)
== END 2022-02-23 17:42 | disposition home or self-care (01) ==
PROVIDERS: Physician Assistant Medical; Emergency Provider Emergency Medicine; PCP Internal Medicine
DX: B34.9 Viral infection, unspecified (principal); J02.0 Streptococcal pharyngitis; Z20.822 Contact with and (suspected) exposure to COVID-19
CPT/HCPCS: 0241U; 87651; 99282; 99283

== ENCOUNTER 2022-03-13 22:54 | Emergency (ER) | payer OTHER, SELFPAY ==
[2022-03-13 22:58] VITALS: BP 152/109; PULSE 89; RESP 18; TEMP 36.8; O2SAT 99; BMI 30.4
--- NOTE | 2022-03-14 00:38 | ED.EAR ---
HPI - Ear Problem General Chief complaint: Ear Problems Stated complaint: Ear Pain Time Seen by Provider: 03/14/22 00:26 Source: patient Mode of arrival: ambulatory Limitations: no limitations History of Present Illness HPI Narrative: 36-year-old female presents to the ER for evaluation of left ear pain for the last 1 week. She states she was seen by her PCP, got a small pink pill that did not help. She thinks it was an antibiotic. She reports the pain in her left ear is worse with lying down, palpation and is unable to sleep. She states she is intermittently dizzy with movement. She has slight pain in the right ear but is nothing like the pain in the left ear. She denies any fever, URI symptoms. No tinnitus. No discharge or change in hearing. MD Complaint: ear pain Location: left ear Duration: constant Severity: severe Relieving factors: nothing Exacerbating factors: chewing, position of head and palpation Discharge from ear: no Associated symptoms ear: external ear tenderness and rhinorrhea (Now resolved) Treatment prior to arrival: oral analgesic and other (Oral antibiotics) Related Data Home Medications Medication Instructions Recorded Confirmed vitamin with calcium 1 tab PO DAILY 10/29/21 no.72-iron 27 mg-folic acid 1 mg tablet ( Vitamins Plus Low Iron) Previous Rx's Medication Instructions Recorded valacyclovir 500 mg tablet 500 mg PO BID 6 weeks #84 tabs 10/29/21 (Valtrex) ibuprofen 600 mg tablet 600 mg PO Q6H PRN fever or pain 01/15/22 #20 tabs azithromycin 250 mg tablet See Rx Instructions PO .COMPLEX #6 02/25/22 tabs ciprofloxacin 0.3 %-dexamethasone 4 drp otic (ears) BID 7 days #7.5 03/14/22 0.1 % ear drops,suspension mL (Ciprodex) levofloxacin 500 mg tablet 500 mg PO DAILY #9 tabs 03/14/22 tramadol 50 mg tablet 50 mg PO Q6H PRN pain #8 tabs 03/14/22 Allergies Allergy/AdvReac Type Severity Reaction Status Date / Time No Known Allergies Allergy Verified 03/13/22 22:58 [No Known Allergies*] Review of Systems Review of Systems: see HPI Yes all other systems are reviewed and are negative PMFSH Past Medical History Medical History No known health problems Surgical History No pertinent past surgical history Family History Family History Mother HTN (hypertension) Father Diabetes 1.5, managed as type 1 Maternal Grandmother Colon cancer Breast cancer Social History Social History Household Members: Children Housing: [facility] Alcohol intake: never Patient Tobacco Use Status: Never used Tobacco e-Cigarette/Vaping Use: Never Used Second Hand Smoke Exposure: No Substance Use Type: Marijuana Special nimco needs: No Agree to transfusion: Yes Advance Directives: No Advance Directives Information Provided: No service: No Current occupational status: employed Gender identity: Female Cognitive needs: No Hearing needs: No Vision needs: No Physical Exam Vital Signs: Vital Signs: Last Vital Signs Temp 98.2 F 03/13/22 22:58 Pulse 89 03/13/22 22:58 Resp 18 03/13/22 22:58 BP 152/109 H 03/13/22 22:58 Pulse Ox 99 03/13/22 22:58 O2 Del Method 03/13/22 22:58 BMI result Body Mass Index 30.4 Appearance: Alert. Oriented X3. No acute distress. HEENT: normal external inspection. Normal inspection of the right EAC and TM. Left EAC with erythema and tenderness, left TM with erythema and bulging, fluid effusion seen behind the eardrum. No mastoid tenderness. No pre or postauricular lymphadenopathy. CVS: Normal heart rate and rhythm. Pulses normal. Respiratory: No respiratory distress. Skin: Skin warm and dry. Normal skin color. Normal skin turgor. No rashes. Extremities: Normal inspection x4. Neuro: Oriented X 3. Grossly normal, normal speech. Course Course Course Narrative: 36-year-old female presenting to the ER for evaluation of left ear pain for the last 1 week. Completed a course of oral antibiotics from her PCP, unsure the name. No improvement. She does have a fusion and evidence of otitis externa and otitis media on examination. Will prescribe fluoroquinolone orally and topically. Pain control ordered. Stable for discharge home. Encouraged follow up with her primary care doctor ensure resolution. Patient agrees with plan. Medical Decision Making Differential Diagnosis Differential Diagnoses: The differential diagnosis associated with the presentation includes Acute otitis media, acute otitis externa, cholesteatoma, mastoiditis, Meniere's disease External Record Review External record reviewed: Outpatient record Prescription Management I considered prescription management with: Pain Medication and Antibiotic Escalating to broader spectrum with fluoroquinolone. Critical Care Time Critical Care Time Critical Care Time: No Discharge Plan Discharge Clinical Impression: Otitis media, Otitis externa Patient Disposition: Home, Self-Care Instructions: Otitis Externa (ED), Ear Infection (ED) Additional Instructions: Take the prescribed antibiotic as directed. Start tomorrow night as your given 1st dose today in the ER. Use the prescribed topical antibiotic drops with steroids to help with pain and swelling in your ear canal. Start these tomorrow morning. Recommend Tylenol 975 mg every 6 hours around the clock for pain. Take the prescribed pain medication as needed for severe pain. Do not drive after taking this medication. Recommend following up with her primary care doctor in 1-2 weeks to ensure complete resolution. If you develop new or worsening symptoms call 911 or come back to the ER for further evaluation. Prescriptions: New tramadol 50 mg tablet 50 mg PO Q6H PRN (Reason: pain) Qty: 8 0RF levofloxacin 500 mg tablet 500 mg PO DAILY Qty: 9 0RF ciprofloxacin-dexamethasone [Ciprodex] 0.3-0.1 % drops,suspension 4 drp otic (ears) BID 7 Days Qty: 7.5 0RF No Action azithromycin 250 mg tablet See Rx Instructions PO .COMPLEX Qty: 6 0RF Rx Instructions: take 500 mg today (day 1), then 250 mg for 4 days (days 2-5) PO ibuprofen 600 mg tablet 600 mg PO Q6H PRN (Reason: fever or pain) Qty: 20 0RF Vitamin Plus Low Iron 27 mg iron- 1 mg tablet 1 tab PO DAILY valacyclovir [Valtrex] 500 mg tablet 500 mg PO BID 42 Days Qty: 84 0RF Rx Instructions: Start 1 tablet twice a day at 36 weeks of gestation
[2022-03-14] MEDS: levoFLOXacin 500 MG TABLET PO (01:00)
[2022-03-14] MEDS: Ibuprofen 600 MG TABLET PO (01:01)
[2022-03-14] MEDS: oxyCODONE HCl Immed Release 5 MG TABLET PO (01:01)
== END 2022-03-14 01:11 | disposition home or self-care (01) ==
PROVIDERS: Emergency Provider Internal Medicine; PCP Internal Medicine
DX: H66.92 Otitis media, unspecified, left ear (principal); H60.92 Unspecified otitis externa, left ear
CPT/HCPCS: 99283

== ENCOUNTER 2022-03-18 00:21 | Emergency (ER) | payer OTHER, SELFPAY ==
--- NOTE | ~2022-03-18 | CT_ITS ---
EXAMINATION: CT SOFT TISSUE NECK WITHOUT CONTRAST CLINICAL INFORMATION: Left ear and neck pain COMPARISON: None TECHNIQUE: Noncontrast CT examination of the neck was formed. Coronal and sagittal reformats are reviewed This CT examination was performed using dose optimization techniques as appropriate, variously including the following: *Automated exposure control *Adjustment of mA and/or kV according to patient size (this includes techniques or standardized protocols for targeted exams where dose is matched to indication/reason for exam; i.e. extremities or head) *Use of iterative reconstruction technique DLP: 552 mGy-cm FINDINGS: The periauricular soft tissues are normal. No evidence of otitis externa. Middle ear cavities and mastoid air cells are well aerated bilaterally. No evidence of otitis media or mastoiditis. No cervical adenopathy is identified. The parotid glands are homogeneous in attenuation. The submandibular glands are normal. No contour abnormality within the oral cavity or pharyngeal mucosal space. The laryngeal structures are normal. The parapharyngeal fat is preserved. No extra mucosal soft tissue mass or fluid collection is seen. No retropharyngeal fluid collection is seen. The thyroid gland is normal. The superior mediastinum is unremarkable. The lung apices are clear. No periapical disease is identified. No osseous abnormalities are seen. The imaged portions of the brain parenchyma are unremarkable. CT/CT soft tissue neck wo IV con IMPRESSION: * No etiology for the patient's left ear pain is identified. * No evidence of otitis externa, otitis media or mastoiditis.
[2022-03-18 00:34] VITALS: BP 156/92; PULSE 74; RESP 20; TEMP 36.1; O2SAT 99; BMI 29.8
[2022-03-18 03:26] VITALS: BP 155/84; PULSE 68; RESP 18; TEMP 36.7; O2SAT 100
--- NOTE | 2022-03-18 04:08 | ED_ITS ---
HPI - Ear Problem General Chief complaint: Ear Problems Stated complaint: Ear Infection Time Seen by Provider: 03/18/22 03:24 Source: patient Mode of arrival: ambulatory Limitations: no limitations History of Present Illness HPI Narrative: 36-year-old female came in for evaluation of left ear/ left neck pain, patient was recently here for left ear pain diagnosed with otitis interna neck/ externa patient was sent home on azithromycin and ciprofloxacin ear drops patient stated there is no improvement now there is more pain to the left side of the neck, no fever, no chills, no photophobia, no headache. Related Data Home Medications Medication Instructions Recorded Confirmed vitamin with calcium 1 tab PO DAILY 10/29/21 no.72-iron 27 mg-folic acid 1 mg tablet ( Vitamins Plus Low Iron) Previous Rx's Medication Instructions Recorded valacyclovir 500 mg tablet 500 mg PO BID 6 weeks #84 tabs 10/29/21 (Valtrex) ibuprofen 600 mg tablet 600 mg PO Q6H PRN fever or pain 01/15/22 #20 tabs azithromycin 250 mg tablet See Rx Instructions PO .COMPLEX #6 02/25/22 tabs ciprofloxacin 0.3 %-dexamethasone 4 drp otic (ears) BID 7 days #7.5 03/14/22 0.1 % ear drops,suspension mL (Ciprodex) levofloxacin 500 mg tablet 500 mg PO DAILY #9 tabs 03/14/22 ofloxacin 0.3 % ear drops 10 drp otic (ears) DAILY 7 days #5 03/14/22 mL tramadol 50 mg tablet 50 mg PO Q6H PRN pain #8 tabs 03/14/22 Allergies Allergy/AdvReac Type Severity Reaction Status Date / Time No Known Allergies Allergy Verified 03/18/22 00:41 [No Known Allergies*] Review of Systems Review of Systems: All other systems are reviewed and are negative Constitutional: Reports as per HPI and Reports no additional constitutional complaints Eyes: Reports as per HPI and Reports no additional eye complaints Reports system reviewed and no additional complaints, except as documented Cardiovascular: Reports as per HPI and Reports no additional cardiovascular complaints Respiratory: Reports as per HPI and Reports no additional respiratory complaints Gastrointestinal: Reports as per HPI and Reports no additional gastrointestinal complaints Genitourinary: Reports no additional female genitourinary complaints Musculoskeletal: Reports no additional musculoskeletal complaints Skin/Breast: Reports system reviewed and no additional complaints, except as docu Psychiatric: Reports no additional psychiatric complaints Endocrine: Reports no additional endocrine complaints Hematologic/Lymphatic: Reports no additional hematologic/lymphatic complaints Allergic/Immunologic: Reports no additional allergic/immunologic complaints Reports system reviewed and no additional complaints, except as documented and Reports Abnormal speech present [facility] Past Medical History Medical History No known health problems Surgical History No pertinent past surgical history Family History Family History Mother HTN (hypertension) Father Diabetes 1.5, managed as type 1 Maternal Grandmother Colon cancer Breast cancer Social History Social History Household Members: Children Housing: [facility] Alcohol intake: never Patient Tobacco Use Status: Never used Tobacco Smoked in Last 30 Days: No e-Cigarette/Vaping Use: Never Used Second Hand Smoke Exposure: No Use of substances other than those prescribed or required for medical reasons: No Substance Use Type: Marijuana Special nimco needs: No Agree to transfusion: Yes Advance Directives: No service: No Current occupational status: employed Gender identity: Female Cognitive needs: No Hearing needs: No Vision needs: No Physical Exam Vital Signs: Vital Signs: Last Vital Signs Temp 98.1 F 03/18/22 03:26 Pulse 68 03/18/22 03:26 Resp 18 03/18/22 03:26 BP 155/84 H 03/18/22 03:26 Pulse Ox 100 03/18/22 03:26 O2 Del Method 03/18/22 03:26 BMI result Body Mass Index 29.8 vital signs have been reviewed as appeared to be correct. Blood pressure normal. Heart rate normal. Respiration rate normal. Temperature normal. Oxygen saturation normal. Appearance: Alert. Oriented X3. No acute distress. Head: Normal external exam. Normocephalic. Atraumatic. No Lee signs noted. No raccoon eyes noted Eyes: PERRLA. EOMI. Conjunctiva and sclera normal. Eyelids normal. ENT: TM's Normal. Pharynx normal. Uvula midline. Moist mucous membranes. No trismus noted. No drooling noted. No muffled voice noted. Neck: Normal inspection. Neck supple. FROM. No adenopathy. Thyroid Normal. No meningeal signs. No neck mass noted. CVS: Normal heart rate and rhythm. Heart sound normal. No murmurs noted. Pulses normal throughout. Respiratory: No respiratory distress. Painless inspiration. Breath sounds normal. No wheezes/rales/rhonchi noted. Chest nontender. No accessory muscle usage noted or decreased air movement noted. Abdomen: Soft and nontender. Bowel sounds normal in all 4 quadrants. No distention noted. No organomegaly noted. No visible injury noted. Back: No CVA tenderness. Full range of motion noted. Skin: Skin warm and dry. Normal skin color. Normal skin turgor. No rashes/lesions/lacerations noted. Extremities: No lower extremity edema. Extremities exhibit normal range of motion. Extremities nontender. Neuro: Oriented X 3. Cranial nerve exam: II-XII are grossly intact No motor deficit. No sensory deficit. Reflexes normal. Course Course Course Narrative: 36-year-old female with left ear infection, CT neck showing no abscess or mastoiditis, will start the patient on another course of Augmentin for 7 days and patient will need to see an ENT doctor for further evaluation. Medical Decision Making Differential Diagnosis Differential Diagnoses: The differential diagnosis associated with the presentation includes ( Mastoiditis, otitis media, otitis externa) Independent Interpretation I performed an independent interpretation of an: CT Scan (neck: No etiology for the patient's left ear pain is identified. * No evidence of otitis externa, otitis media or mastoiditis. ) Radiology Impression Discussion of test interpretation with radiology: I have reviewed the radiologist's reading. Discharge Plan Discharge Clinical Impression: Otitis media Patient Disposition: Home, Self-Care Instructions: Ear Infection (ED) Prescriptions: No Action azithromycin 250 mg tablet See Rx Instructions PO .COMPLEX Qty: 6 0RF Rx Instructions: take 500 mg today (day 1), then 250 mg for 4 days (days 2-5) PO ibuprofen 600 mg tablet 600 mg PO Q6H PRN (Reason: fever or pain) Qty: 20 0RF tramadol 50 mg tablet 50 mg PO Q6H PRN (Reason: pain) Qty: 8 0RF levofloxacin 500 mg tablet 500 mg PO DAILY Qty: 9 0RF ciprofloxacin-dexamethasone [Ciprodex] 0.3-0.1 % drops,suspension 4 drp otic (ears) BID 7 Days Qty: 7.5 0RF ofloxacin 0.3 % drops 10 drp otic (ears) DAILY 7 Days Qty: 5 0RF Vitamin Plus Low Iron 27 mg iron- 1 mg tablet 1 tab PO DAILY valacyclovir [Valtrex] 500 mg tablet 500 mg PO BID 42 Days Qty: 84 0RF Rx Instructions: Start 1 tablet twice a day at 36 weeks of gestation Referrals: Armand Art MD [Primary Care Provider] - Dick Galvez MD [Physician] -
[2022-03-18 05:55] VITALS: BP 146/89; PULSE 75; RESP 17; TEMP 36.9; O2SAT 98
== END 2022-03-18 06:19 | disposition home or self-care (01) ==
PROVIDERS: Emergency Provider Emergency Medicine; PCP Internal Medicine
DX: H66.92 Otitis media, unspecified, left ear (principal); M54.2 Cervicalgia; Z79.899 Other long term (current) drug therapy
CPT/HCPCS: 70490; 99284

== ENCOUNTER 2022-03-29 05:41 | Emergency (ER) | payer OTHER, SELFPAY ==
[2022-03-29 05:48] VITALS: BP 141/93; PULSE 73; RESP 20; TEMP 36.6; O2SAT 98; BMI 29.3
[2022-03-29 05:54] VITALS: BP 141/93; PULSE 75; RESP 20; TEMP 36.6; O2SAT 96
--- NOTE | 2022-03-29 06:14 | PC.NURSE ---
Assessment: Pt's V/S are stable, pt has abd pain x 3 day with diarrhea. pt has soft abd, normal bowel sound throughout out the 4 quadrants. Labs and urine were collected .
[2022-03-29 06:16] LABS: Basophils Percent Auto 0.5 % (0-2); Eosinophils Absolute Auto 0.1 X10*3/uL (0.0-0.4); Eosinophils Percent Auto 1.6 % (0-4); Hemoglobin 12.6 g/dl (12.0-16.0); Imm Gran Abs Auto 0.02 X10*3/uL (0.00-0.03); Imm Gran Pct Auto 0.3 % (0.0-0.4); Lymphocytes Absolute Auto 2.1 X10*3/uL (1.2-4.9); MANUAL DIFF FLAG NO; Mean Corpuscular HGB Conc 33.2 g/dl (31.0-35.0); Mean Corpuscular Hemoglobin 29.1 pg (27.0-33.0); Mean Corpuscular Volume 87.8 fL (80.0-98.0); Mean Platelet Volume 10.8 fL (9.4-12.3); Monocytes Absolute Auto 0.6 X10*3/uL (0.1-1.2); Monocytes Percent Auto 8.8 % (2-11); Neutrophils Absolute Auto 3.5 x10*3/uL (2.0-8.3); Neutrophils Percent Auto 55.8 % (45-73); Platelet Count 213 X10*3/uL (160-400); Red Blood Count 4.33 X10*6/uL (4.20-5.50); White Blood Count 6.3 X10*3/uL (4.8-10.8)
[2022-03-29 06:17] LABS: Appearance Urine Clear; Color Urine Yellow; Glucose Urine UA Negative (Negative); Leukocyte Esterase Urine Negative (Negative); Nitrite Urine Negative (Negative); Specific Gravity - Urine 1.025 (1.005-1.025); UMIC TRIGGER UACC YES; Urine Blood Small (1+) (Negative); Urine Ketones Negative (Negative); Urine Protein Trace mg/dL (Neg-Trace)
[2022-03-29 06:19] LABS: UPreg QC Valid YES; Urine Pregnancy NEGATIVE (NEGATIVE)
[2022-03-29 06:33] LABS: Bacteria Urine None Seen (None Seen); Calcium Oxalate Crystals Urine Present; Hyaline Casts Urine 0-2 /LPF (0-2); RBC Urine >20 /HPF (0-2); Squamous Epithelial Cell Urine 0-2 /HPF (0-2); WBC Urine 0-5 /HPF (0-5)
[2022-03-29 06:34] LABS: Alanine Aminotransferase 48 U/L (0-31); Albumin Level 4.3 g/dL (3.5-5.0); Alkaline Phosphatase 125 U/L (39-117); Anion Gap 15 (12-20); Aspartate Amino Transferase 27 U/L (5-31); Bilirubin Direct < 0.2 mg/dL (0.0-0.5); Bilirubin Total 0.3 mg/dL (0.0-1.0); Blood Urea Nitrogen 9 mg/dL (9-16); Calcium 9.3 mg/dL (8.4-10.2); Carbon Dioxide 24 mmol/L (22-29); Chloride 106 mmol/L (96-108); Creatinine Clr Calc Pharmacy 120.3; Estimated Glomerular Filt Rate > 60; Glucose Random 92 mg/dL (60-115); Lipase 44 U/L (8-78); Potassium 3.4 mmol/L (3.3-5.1); Sodium 142 mmol/L (135-145); Total Protein 7.1 g/dL (6.5-8.0)
--- NOTE | 2022-03-29 07:13 | ED_ITS ---
HPI - Abdominal Pain General Chief Complaint: Abdominal Pain Stated Complaint: stomach pain Time Seen by Provider: 03/29/22 06:54 Source: patient Mode of arrival: ambulatory Limitations: no limitations History of Present Illness HPI narrative: 36-year-old female presented for evaluation of nausea/vomiting/diarrhea and abdominal cramps for 1 day. Nausea and vomiting has improved patient been having multiple nonbloody watery diarrhea this morning. Able to tolerate p.o. intake, son was sick last week and patient was exposed to her son. Related Data Home Medications Medication Instructions Recorded Confirmed vitamin with calcium 1 tab PO DAILY 10/29/21 no.72-iron 27 mg-folic acid 1 mg tablet ( Vitamins Plus Low Iron) Previous Rx's Medication Instructions Recorded valacyclovir 500 mg tablet 500 mg PO BID 6 weeks #84 tabs 10/29/21 (Valtrex) ibuprofen 600 mg tablet 600 mg PO Q6H PRN fever or pain 01/15/22 #20 tabs azithromycin 250 mg tablet See Rx Instructions PO .COMPLEX #6 02/25/22 tabs ciprofloxacin 0.3 %-dexamethasone 4 drp otic (ears) BID 7 days #7.5 03/14/22 0.1 % ear drops,suspension mL (Ciprodex) levofloxacin 500 mg tablet 500 mg PO DAILY #9 tabs 03/14/22 ofloxacin 0.3 % ear drops 10 drp otic (ears) DAILY 7 days #5 03/14/22 mL tramadol 50 mg tablet 50 mg PO Q6H PRN pain #8 tabs 03/14/22 acetaminophen 500 mg tablet 1,000 mg PO QID PRN fever or pain 03/18/22 (Tylenol Extra Strength) #14 tabs amoxicillin 875 mg-potassium 1 tab PO BID 10 days #20 tabs 03/18/22 clavulanate 125 mg tablet Allergies Allergy/AdvReac Type Severity Reaction Status Date / Time No Known Allergies Allergy Verified 03/29/22 05:51 [No Known Allergies*] Review of Systems Review of Systems All other systems are reviewed and are negative Constitutional: Reports as per HPI and Reports no additional constitutional complaints Eyes: Reports as per HPI and Reports no additional eye complaints Reports system reviewed and no additional complaints, except as documented Cardiovascular: Reports as per HPI and Reports no additional cardiovascular complaints Respiratory: Reports as per HPI and Reports no additional respiratory complaints Gastrointestinal: Reports as per HPI and Reports no additional gastrointestinal complaints Genitourinary: Reports no additional female genitourinary complaints Musculoskeletal: Reports no additional musculoskeletal complaints Skin/Breast: Reports system reviewed and no additional complaints, except as docu Psychiatric: Reports no additional psychiatric complaints Endocrine: Reports no additional endocrine complaints Hematologic/Lymphatic: Reports no additional hematologic/lymphatic complaints Allergic/Immunologic: Reports no additional allergic/immunologic complaints Reports system reviewed and no additional complaints, except as documented and Reports Abnormal speech present [facility] Past Medical History Medical History No known health problems Surgical History No pertinent past surgical history Family History Family History Mother HTN (hypertension) Father Diabetes 1.5, managed as type 1 Maternal Grandmother Colon cancer Breast cancer Social History Social History Household Members: Children [facility] Alcohol intake: never Patient Tobacco Use Status: Never used Tobacco Smoked in Last 30 Days: No e-Cigarette/Vaping Use: Never Used Second Hand Smoke Exposure: No Use of substances other than those prescribed or required for medical reasons: No Substance Use Type: Marijuana Special nimco needs: No Agree to transfusion: Yes Advance Directives: No Advance Directives Information Provided: No Patient : No service: No Current occupational status: employed Gender identity: Female Cognitive needs: No Hearing needs: No Vision needs: No Physical Exam ED Vital Signs: Vital Signs - 24 hr 03/29/22 05:48 03/29/22 05:54 03/29/22 07:20 Temperature 97.9 F 97.9 F Pulse Rate 73 75 69 Respiratory Rate 20 20 16 Blood Pressure 141/93 H 141/93 H 138/76 Pulse Oximetry 98 96 100 Oxygen Delivery Method Room Air Room Air Room Air BMI result Body Mass Index 29.3 Vital signs have been reviewed as appeared to be correct. Blood pressure normal. Heart rate normal. Respiration rate normal. Temperature normal. Oxygen saturation normal. Appearance: Alert. Oriented X3. No acute distress. Head: Normal external exam. Normocephalic. Atraumatic. No Lee signs noted. No raccoon eyes noted Eyes: PERRLA. EOMI. Conjunctiva and sclera normal. Eyelids normal. ENT: TM's Normal. Pharynx normal. Uvula midline. Moist mucous membranes. No trismus noted. No drooling noted. No muffled voice noted. Neck: Normal inspection. Neck supple. FROM. No adenopathy. Thyroid Normal. No meningeal signs. No neck mass noted. CVS: Normal heart rate and rhythm. Heart sound normal. No murmurs noted. Pulses normal throughout. Respiratory: No respiratory distress. Painless inspiration. Breath sounds normal. No wheezes/rales/rhonchi noted. Chest nontender. No accessory muscle usage noted or decreased air movement noted. Abdomen: Soft and nontender. Bowel sounds normal in all 4 quadrants. No distention noted. No organomegaly noted. No visible injury noted. Back: No CVA tenderness. Full range of motion noted. Skin: Skin warm and dry. Normal skin color. Normal skin turgor. No rashes/lesions/lacerations noted. Extremities: No lower extremity edema. Extremities exhibit normal range of motion. Extremities nontender. Neuro: Oriented X 3. Cranial nerve exam: II-XII are grossly intact No motor deficit. No sensory deficit. Reflexes normal. Course Course Course Narrative: 36-year-old female came in after having nonbloody watery diarrhea multiple episodes patient was exposed to a sick family member, patient is able to tolerate p.o. intake in the emergency department, no abdominal pain, no dehydration, unremarkable labs. Medical Decision Making Differential Diagnosis Differential Diagnoses: The differential diagnosis associated with the presentation includes (Food poisoning, gastroenteritis, colitis, viral infection.) Lab Data MDM Lab Attestation statement: I reviewed the patient's lab results. 03/29/22 05:59 03/29/22 05:59 Labs: Lab Results 03/29/22 03/29/22 03/29/22 Range/Units 05:59 05:59 06:01 WBC 6.3 (4.8-10.8) X10*3/uL RBC 4.33 (4.20-5.50) X10*6/uL Hgb 12.6 (12.0-16.0) g/dl Hct 38.0 (37.0-47.0) % MCV 87.8 (80.0-98.0) fL MCH 29.1 (27.0-33.0) pg MCHC 33.2 (31.0-35.0) g/dl RDW 12.0 (11.0-16.0) % Plt Count 213 (160-400) X10*3/uL MPV 10.8 (9.4-12.3) fL Immature Gran % (Auto) 0.3 (0.0-0.4) % Neut % (Auto) 55.8 (45-73) % Lymph % (Auto) 33.0 (20-40) % Wheeler % (Auto) 8.8 (2-11) % Eos % (Auto) 1.6 (0-4) % Baso % (Auto) 0.5 (0-2) % Lymph # (Auto) 2.1 (1.2-4.9) X10*3/uL Wheeler # (Auto) 0.6 (0.1-1.2) X10*3/uL Eos # (Auto) 0.1 (0.0-0.4) X10*3/uL Baso # (Auto) 0.0 (0.0-0.2) X10*3/uL Abs Immat Gran (auto) 0.02 (0.00-0.03) X10*3/uL Absolute Neuts (auto) 3.5 (2.0-8.3) x10*3/uL Absolute Nucleated RBC 0.000 (0.0-0.012) X10*3/uL Nucleated RBC % (auto) 0.0 (0.0-0.2) /100WBC Sodium 142 (135-145) mmol/L Potassium 3.4 (3.3-5.1) mmol/L Chloride 106 (96-108) mmol/L Carbon Dioxide 24 (22-29) mmol/L Anion Gap 15 (12-20) BUN 9 (9-16) mg/dL Creatinine 0.70 (0.5-1.4) mg/dL Estim Creat Clear Calc 120.3 Estimated GFR > 60 Random Glucose 92 (60-115) mg/dL Calcium 9.3 (8.4-10.2) mg/dL Total Bilirubin 0.3 (0.0-1.0) mg/dL Direct Bilirubin < 0.2 (0.0-0.5) mg/dL AST 27 (5-31) U/L ALT 48 H (0-31) U/L Alkaline Phosphatase 125 H (39-117) U/L Total Protein 7.1 (6.5-8.0) g/dL Albumin 4.3 (3.5-5.0) g/dL Lipase 44 (8-78) U/L Urine Color Yellow Urine Appearance Clear Urine pH 6.0 (5.0-9.0) Ur Specific [place] 1.025 (1.005-1.025) Urine Protein Trace (Neg-Trace) mg/dL Urine Glucose (UA) Negative (Negative) mg/dL Urine Ketones Negative (Negative) mg/dL Urine Blood Small (1+) H (Negative) Urine Nitrite Negative (Negative) Ur Leukocyte Esterase Negative (Negative) Urine RBC >20 H (0-2) /HPF Urine WBC 0-5 (0-5) /HPF Ur Squamous Epith Cells 0-2 (0-2) /HPF Calcium Oxalate Crystal Present Urine Bacteria None Seen (None Seen) Hyaline Casts 0-2 (0-2) /LPF Urine Test (NEGATIVE) 03/29/22 Range/Units 06:01 WBC (4.8-10.8) X10*3/uL RBC (4.20-5.50) X10*6/uL Hgb (12.0-16.0) g/dl Hct (37.0-47.0) % MCV (80.0-98.0) fL MCH (27.0-33.0) pg MCHC (31.0-35.0) g/dl RDW (11.0-16.0) % Plt Count (160-400) X10*3/uL MPV (9.4-12.3) fL Immature Gran % (Auto) (0.0-0.4) % Neut % (Auto) (45-73) % Lymph % (Auto) (20-40) % Wheeler % (Auto) (2-11) % Eos % (Auto) (0-4) % Baso % (Auto) (0-2) % Lymph # (Auto) (1.2-4.9) X10*3/uL Wheeler # (Auto) (0.1-1.2) X10*3/uL Eos # (Auto) (0.0-0.4) X10*3/uL Baso # (Auto) (0.0-0.2) X10*3/uL Abs Immat Gran (auto) (0.00-0.03) X10*3/uL Absolute Neuts (auto) (2.0-8.3) x10*3/uL Absolute Nucleated RBC (0.0-0.012) X10*3/uL Nucleated RBC % (auto) (0.0-0.2) /100WBC Sodium (135-145) mmol/L Potassium (3.3-5.1) mmol/L Chloride (96-108) mmol/L Carbon Dioxide (22-29) mmol/L Anion Gap (12-20) BUN (9-16) mg/dL Creatinine (0.5-1.4) mg/dL Estim Creat Clear Calc Estimated GFR Random Glucose (60-115) mg/dL Calcium (8.4-10.2) mg/dL Total Bilirubin (0.0-1.0) mg/dL Direct Bilirubin (0.0-0.5) mg/dL AST (5-31) U/L ALT (0-31) U/L Alkaline Phosphatase (39-117) U/L Total Protein (6.5-8.0) g/dL Albumin (3.5-5.0) g/dL Lipase (8-78) U/L Urine Color Urine Appearance Urine pH (5.0-9.0) Ur Specific [place] (1.005-1.025) Urine Protein (Neg-Trace) mg/dL Urine Glucose (UA) (Negative) mg/dL Urine Ketones (Negative) mg/dL Urine Blood (Negative) Urine Nitrite (Negative) Ur Leukocyte Esterase (Negative) Urine RBC (0-2) /HPF Urine WBC (0-5) /HPF Ur Squamous Epith Cells (0-2) /HPF Calcium Oxalate Crystal Urine Bacteria (None Seen) Hyaline Casts (0-2) /LPF Urine Test NEGATIVE (NEGATIVE) Medications Administered Discontinued Medications Generic Name Dose Route Start Last Admin Trade Name Freq PRN Reason Stop Dose Admin Loperamide HCl 2 mg 03/29/22 07:02 03/29/22 07:58 Loperamide Hcl 2 Mg Capsule PO 01/16/23 07:03 2 mg ONCE ONE Administration Discharge Plan Discharge Clinical Impression: Gastroenteritis Patient Disposition: Home, Self-Care Instructions: Gastroenteritis (ED) Prescriptions: No Action azithromycin 250 mg tablet See Rx Instructions PO .COMPLEX Qty: 6 0RF Rx Instructions: take 500 mg today (day 1), then 250 mg for 4 days (days 2-5) PO ibuprofen 600 mg tablet 600 mg PO Q6H PRN (Reason: fever or pain) Qty: 20 0RF tramadol 50 mg tablet 50 mg PO Q6H PRN (Reason: pain) Qty: 8 0RF levofloxacin 500 mg tablet 500 mg PO DAILY Qty: 9 0RF ciprofloxacin-dexamethasone [Ciprodex] 0.3-0.1 % drops,suspension 4 drp otic (ears) BID 7 Days Qty: 7.5 0RF ofloxacin 0.3 % drops 10 drp otic (ears) DAILY 7 Days Qty: 5 0RF amoxicillin-pot clavulanate 875-125 mg tablet 1 tab PO BID 10 Days Qty: 20 0RF acetaminophen [Tylenol Extra Strength] 500 mg tablet 1,000 mg PO QID PRN (Reason: fever or pain) Qty: 14 0RF Vitamin Plus Low Iron 27 mg iron- 1 mg tablet 1 tab PO DAILY valacyclovir [Valtrex] 500 mg tablet 500 mg PO BID 42 Days Qty: 84 0RF Rx Instructions: Start 1 tablet twice a day at 36 weeks of gestation Referrals: Armand Art MD [Primary Care Provider] -
[2022-03-29 07:20] VITALS: BP 138/76; PULSE 69; RESP 16; O2SAT 100
[2022-03-29] MEDS: Loperamide HCl 2 MG CAPSULE PO (07:58)
[2022-03-29 08:37] LABS: Influenza A PCR NEGATIVE (Negative); Influenza B PCR NEGATIVE (Negative); Resp Syncy Virus RNA Qual PCR NEGATIVE (Negative); SARS COV2 PCR INHOUSE NEGATIVE (Negative)
== END 2022-03-29 09:07 | disposition home or self-care (01) ==
PROVIDERS: Emergency Provider Emergency Medicine; PCP Internal Medicine
DX: K52.9 Noninfective gastroenteritis and colitis, unspecified (principal); R10.9 Unspecified abdominal pain; Z20.822 Contact with and (suspected) exposure to COVID-19; Z20.828 Contact with and (suspected) exposure to other viral communicable diseases
CPT/HCPCS: 0241U; 36415; 80053; 81001; 81025; 82248; 83690; 85025; 99283; 99284

== ENCOUNTER 2022-06-01 10:15 | Outpatient (REF) | payer OTHER, SELFPAY ==
[2022-06-01 11:28] LABS: Erythrocyte Sedimentation Rate 14 MM/HR (0-20)
[2022-06-01 11:54] LABS: Thyroid Stimulating Hormone 1.71 uIU/mL (0.32-4.0)
== END 2022-06-01 10:16 | disposition home or self-care (01) ==
LOC: HO.LAB 10:15
PROVIDERS: PCP Internal Medicine; Visit Provider Internal Medicine
DX: E66.9 Obesity, unspecified (principal); E03.9 Hypothyroidism, unspecified; R51.9 Headache, unspecified; Z71.3 Dietary counseling and surveillance; Z68.33 Body mass index [BMI] 33.0-33.9, adult
CPT/HCPCS: 36415; 84443; 85652; 97802

== ENCOUNTER 2022-06-06 12:08 | Emergency (ER) | payer OTHER, SELFPAY ==
--- NOTE | ~2022-06-06 | XR_ITS ---
EXAMINATION: XR CHEST CLINICAL INFORMATION: Bilateral rib pain COMPARISON: None available. TECHNIQUE: 2 views of the chest were obtained. FINDINGS: No significant abnormality is noted involving the heart, lungs, mediastinum, bony thorax or soft tissues. XR/XR chest 2V IMPRESSION: Unremarkable chest examination.
[2022-06-06 12:37] VITALS: BP 152/102; PULSE 88; RESP 17; TEMP 36.1; O2SAT 98; BMI 30.9
--- NOTE | 2022-06-06 12:43 | ED.GENADULT ---
HPI - General Adult General Chief complaint: Dental/Oral <GIOVANNA Mortensen - Last Filed: 06/07/22 11:47> Stated complaint: Dental pain/Rib pain <GIOVANNA Mortensen - Last Filed: 06/07/22 11:47> Time Seen by Provider: 06/06/22 15:02 <GIOVANNA Mortensen - Last Filed: 06/07/22 11:47> Source: patient <GIOVANNA Casarez - Last Filed: 06/06/22 16:19> Mode of arrival: ambulatory <GIOVANNA Casarez - Last Filed: 06/06/22 16:19> Limitations: no limitations <GIOVANNA Casarez Last Filed: 06/06/22 16:19> History of Present Illness HPI narrative: 36-year-old female presenting to the ER with 2 separate complaints which include dental pain over the past few days after she had 1 2 removed by the dentist a few days ago currently on Motrin and currently on amoxicillin from her oral surgeon. Reports that she does not feel like the antibiotics are working and also the Motrin is not working despite her taking as prescribed. Also reports that she was doing some exercise and since then she has been having chest pain/rib cage pain worse with deep inspiration for approximately 1 week. She denies any fevers, chills, dizziness, headaches, neck pain/stiffness, sore throat, trouble swallowing or breathing, facial swelling, facial redness, change in her voice, drooling, dyspnea on exertion, orthopnea, palpitations, paresthesias, radiation of the chest pain, flank pain, abdominal pain, lower extremity edema or calf tenderness, recent travel, any estrogen usage, history of DVT or PE, recent falls or trauma or any other symptoms complaints or concerns at this time. <GIOVANNA Casarez - Last Filed: 06/06/22 16:19> MD complaint: Dental pain and chest/rib cage pain <GIOVANNA Casarez Last Filed: 06/06/22 16:19> Onset (ago): week(s) (Over 1 week worse today) <GIOVANNA Casarez Last Filed: 06/06/22 16:19> Related Data Home medications: Previous Rx's Medication Instructions Recorded valacyclovir 500 mg tablet 500 mg PO BID 6 weeks #84 tabs 10/29/21 (Valtrex) ibuprofen 600 mg tablet 600 mg PO Q6H PRN fever or pain 01/15/22 #20 tabs ciprofloxacin 0.3 %-dexamethasone 4 drp otic (ears) BID 7 days #7.5 03/14/22 0.1 % ear drops,suspension mL (Ciprodex) levofloxacin 500 mg tablet 500 mg PO DAILY #9 tabs 03/14/22 ofloxacin 0.3 % ear drops 10 drp otic (ears) DAILY 7 days #5 03/14/22 mL tramadol 50 mg tablet 50 mg PO Q6H PRN pain #8 tabs 03/14/22 acetaminophen 500 mg tablet 1,000 mg PO QID PRN fever or pain 03/18/22 (Tylenol Extra Strength) #14 tabs sulindac 200 mg tablet 200 mg PO BID #60 tabs 06/01/22 amoxicillin 875 mg-potassium 1 tab PO BID 10 days #20 tabs 06/06/22 clavulanate 125 mg tablet cyclobenzaprine 10 mg tablet 10 mg PO Q8H #14 tabs 06/06/22 oxycodone-acetaminophen 5 mg-325 1 tab PO Q6H PRN pain #10 tabs 06/06/22 mg tablet (Percocet) <GIOVANNA Mortensen - Last Filed: 06/07/22 11:47> Allergies/adverse reactions: Allergies Allergy/AdvReac Type Severity Reaction Status Date / Time No Known Allergies Allergy Verified 06/06/22 12:37 [No Known Allergies*] <GIOVANNA Mortensen - Last Filed: 06/07/22 11:47> Review of Systems Review of Systems: Constitutional : No Fever, No Chills, No changes in PO intake, No difficulty speaking, no recent dental procedure, no heat or cold intolerance while eating, no recent face trauma, ENT/Mouth : + Dental pain, No Sore throat, No Jaw pain, No throat swelling, No swallowing difficulty, no change in voice, No facial swelling, no drooling, no trismus, no bleeding, no lacerations, no tongue swelling, gum swelling, Eyes: No Eye Pain, No periorbital Swelling Cardiovascular : + Chest Pain/rib cage pain, No SOB Respiratory : No Cough, No Sputum, No Wheezing, No Smoke Exposure, No Dyspnea Gastrointestinal : No Nausea, No Vomiting, No Diarrhea Genitourinary : No Dysuria Musculoskeletal : No Myalgias Skin : No rash, no facial swelling or redness, Neuro : No Weakness, No Numbness, No Headache <GIOVANNA Casarez - Last Filed: 06/06/22 16:19> Yes all other systems are reviewed and are negative <GIOVANNA Casarez - Last Filed: 06/06/22 16:19> [facility] Past Medical History Attestation statement: The following information was validated with the patient. <GIOVANNA Casarez - Last Filed: 06/06/22 16:19> Source: old records reviewed and nursing notes reviewed <GIOVANNA Casarez - Last Filed: 06/06/22 16:19> Medical History: Medical History No known health problems <GIOVANNA Mortensen - Last Filed: 06/07/22 11:47> Surgical History: Surgical History No pertinent past surgical history <GIOVANNA Mortensen - Last Filed: 06/07/22 11:47> Family History Family History: Family History Mother HTN (hypertension) Father Diabetes 1.5, managed as type 1 Maternal Grandmother Colon cancer Breast cancer <GIOVANNA Mortensen - Last Filed: 06/07/22 11:47> Social History Social History: Social History Household Members: Children Housing: Condominium Alcohol intake: never Patient Tobacco Use Status: Never used Tobacco e-Cigarette/Vaping Use: Never Used Second Hand Smoke Exposure: No Substance Use Type: Marijuana Special nimco needs: No Agree to transfusion: Yes Advance Directives: No Advance Directives Information Provided: Yes service: No Current occupational status: employed Gender identity: Female Cognitive needs: No Hearing needs: No Vision needs: No <GIOVANNA Mortensen Last Filed: 06/07/22 11:47> Physical Exam ED Vital Signs: Vital Signs - 24 hr 06/06/22 12:37 06/06/22 16:16 Temperature 97 F 97.1 F Pulse Rate 88 78 Respiratory Rate 17 16 Blood Pressure 152/102 H 156/91 H Pulse Oximetry 98 99 Oxygen Delivery Method Room Air Room Air BMI result Body Mass Index 30.9 <GIOVANNA Mortensen - Last Filed: 06/07/22 11:47> Vital Signs - 24 hr 06/06/22 12:37 06/06/22 16:16 Temperature 97 F 97.1 F Pulse Rate 88 78 Respiratory Rate 17 16 Blood Pressure 152/102 H 156/91 H Pulse Oximetry 98 99 Oxygen Delivery Method Room Air Room Air BMI result Body Mass Index 30.9 vital signs have been reviewed as normal and appeared to be correct. Blood pressure 152/102. Heart rate normal. Respiration rate normal. Temperature normal. Oxygen saturation normal. <GIOVANNA Casarez - Last Filed: 06/06/22 16:19> Appearance: Alert. Oriented X3. No acute distress. Head: Normal external exam. Normocephalic. Atraumatic. Eyes: PERRLA. EOMI. Conjunctiva and sclera normal. Eyelids normal. ENT: EAC normal. TM's Normal. Pharynx normal. Uvula midline. Moist mucous membranes. To the left upper bicuspid or 1st molar patient has dental extraction that appears well healing not erythematous and there is no purulent drainage there is no obvious dental or gingival abscess. No lesions/ulcerations or masses noted on the tongue. Normal voice. No trismus noted. No drooling noted. No muffled voice noted. Neck: Normal inspection. Neck supple. FROM. No adenopathy. Thyroid Normal. No tracheal deviation noted. No crepitus is noted. No meningeal signs. No neck mass noted. No signs of trauma noted. CVS: Normal heart rate and rhythm. Heart sound normal. Pulses normal throughout. No murmurs/rales/gallops. Respiratory: No respiratory distress. Painless inspiration. Breath sounds normal. No wheezes/rales/rhonchi noted. Chest nontender. No crepitus is noted. No signs of trauma noted. No accessory muscle usage noted or decreased air movement noted. No signs of trauma. Abdomen: Soft and nontender. Bowel sounds normal in all 4 quadrants. No distention noted. No organomegaly noted. No visible injury noted. Back: No CVA tenderness. Full range of motion noted. Nontender. No signs of trauma. Patient neuro intact bilaterally and distally on all 4 extremities. Patient's reflexes intact bilaterally and distally on all 4 extremities. No rashes/lesion/induration/fluctuance or signs of infection noted. Skin: Skin warm and dry. Normal skin color. Normal skin turgor. No rashes/lesions/lacerations noted. Extremities: No lower extremity edema. No calf tenderness is noted. Extremities exhibit normal range of motion and nontender. Neuro: Oriented X 3. No motor deficit. No sensory deficit. Reflexes normal. Normal steady gait. No focal neuro deficits noted. CN's II-XII intact bilaterally? Vascular: + radial pulses/+ 2 distal pedal pulses/+2 dorsalis pedis b/l. Normal cap refill. No cyanosis noted to upper extremity nails and lower extremity toes nails. <GIOVANNA Casarez - Last Filed: 06/06/22 16:19> Course Course Course Narrative: RME: 36 yold female presents to the EDfor right upper molar with tooth was removed and is taking antibiotics to prevent infection. no facial swelling, tongue, or neck swelling. Patient states before that states bilateral rib pain after working out hard. Positive for bilateral rib tenderness on palpation and range of motion no leg sweling or calf pain or birht control use. no chest pain. chest xray ordered. negative for signs of dental abscess, facial swelling, submandibular/neck swelling, or tongue swelling. <GIOVANNA Mortensen - Last Filed: 06/07/22 11:47> Reevaluation(s) Reevaluation #1: Labs reviewed and all labs including a D-dimer and troponin negative. BNP negative. Patient most likely muscular skeletal pain for her rib cage. Patient does not have any trismus/drooling/stridor. Patient with possible dental infection versus dental pain from the extraction. Not consistent with dental abscess/pharyngeal abscess/or any other abscesses. Patient tolerating secretions well. Therefore at this time will change her antibiotic to Augmentin and DC home with pain medications that is stronger than Motrin instructions to follow up with her oral surgeon to return if any new or worsening symptoms. Patient understands agrees with this plan. <GIOVANNA Casarez - Last Filed: 06/06/22 16:19> Time: 16:14 <GIOVANNA Casarez - Last Filed: 06/06/22 16:19> Medications Administered Discontinued Medications Generic Name Dose Route Start Last Admin Trade Name Freq PRN Reason Stop Dose Admin Oxycodone HCl 5 mg 06/06/22 17:43 06/06/22 17:46 Oxycodone Hcl Immed Release 5 Mg Tablet PO 06/06/22 17:44 5 mg ONCE ONE Administration <GIOVANNA Mortensen - Last Filed: 06/07/22 11:47> Medications Administered Discontinued Medications Generic Name Dose Route Start Last Admin Trade Name Freq PRN Reason Stop Dose Admin Oxycodone HCl 5 mg 06/06/22 17:43 06/06/22 17:46 Oxycodone Hcl Immed Release 5 Mg Tablet PO 06/06/22 17:44 5 mg ONCE ONE Administration <GIOVANNA Casarez - Last Filed: 06/06/22 16:19> Medical Decision Making Lab Data MDM Lab Attestation statement: I reviewed the patient's lab results. <GIOVANNA Casarez - Last Filed: 06/06/22 16:19> Result Diagrams: 06/06/22 14:01 06/06/22 14:01 <GIOVANNA Mortensen - Last Filed: 06/07/22 11:47> Labs: Lab Results 06/06/22 06/06/22 06/06/22 Range/Units 14:01 14:01 14:01 WBC 6.1 (4.8-10.8) X10*3/uL RBC 4.59 (4.20-5.50) X10*6/uL Hgb 13.1 (12.0-16.0) g/dl Hct 40.3 (37.0-47.0) % MCV 87.8 (80.0-98.0) fL MCH 28.5 (27.0-33.0) pg MCHC 32.5 (31.0-35.0) g/dl RDW 12.3 (11.0-16.0) % Plt Count 242 (160-400) X10*3/uL MPV 11.1 (9.4-12.3) fL Immature Gran % (Auto) 0.3 (0.0-0.4) % Neut % (Auto) 67.1 (45-73) % Lymph % (Auto) 24.8 (20-40) % [place] % (Auto) 6.1 (2-11) % Eos % (Auto) 1.2 (0-4) % Baso % (Auto) 0.5 (0-2) % Lymph # (Auto) 1.5 (1.2-4.9) X10*3/uL [place] # (Auto) 0.4 (0.1-1.2) X10*3/uL Eos # (Auto) 0.1 (0.0-0.4) X10*3/uL Baso # (Auto) 0.0 (0.0-0.2) X10*3/uL Abs Immat Gran (auto) 0.02 (0.00-0.03) X10*3/uL Absolute Neuts (auto) 4.1 (2.0-8.3) x10*3/uL Absolute Nucleated RBC 0.000 (0.0-0.012) X10*3/uL Nucleated RBC % (auto) 0.0 (0.0-0.2) /100WBC PT 11.8 (10.0-13.1) SEC INR 1.0 (0.9-1.1) APTT 37.9 H (26.0-36.4) SEC D-Dimer High Sensitivty < 150 NG/ML Sodium 141 (135-145) mmol/L Potassium 3.7 (3.3-5.1) mmol/L Chloride 106 (96-108) mmol/L Carbon Dioxide 24 (22-29) mmol/L Anion Gap 15 (12-20) BUN 7 L (9-16) mg/dL Creatinine 0.73 (0.5-1.4) mg/dL Estim Creat Clear Calc 118.4 Estimated GFR > 60 Random Glucose 102 (60-115) mg/dL Calcium 9.3 (8.4-10.2) mg/dL Total Bilirubin 0.7 (0.0-1.0) mg/dL AST 26 (5-31) U/L ALT 38 H (0-31) U/L Alkaline Phosphatase 116 (39-117) U/L Troponin I High Sens (<3.5-17.0) ng/L B-Natriuretic Peptide (<100) pg/mL Total Protein 7.1 (6.5-8.0) g/dL Albumin 4.4 (3.5-5.0) g/dL 06/06/22 06/06/22 Range/Units 14:01 15:21 WBC (4.8-10.8) X10*3/uL RBC (4.20-5.50) X10*6/uL Hgb (12.0-16.0) g/dl Hct (37.0-47.0) % MCV (80.0-98.0) fL MCH (27.0-33.0) pg MCHC (31.0-35.0) g/dl RDW (11.0-16.0) % Plt Count (160-400) X10*3/uL MPV (9.4-12.3) fL Immature Gran % (Auto) (0.0-0.4) % Neut % (Auto) (45-73) % Lymph % (Auto) (20-40) % [place] % (Auto) (2-11) % Eos % (Auto) (0-4) % Baso % (Auto) (0-2) % Lymph # (Auto) (1.2-4.9) X10*3/uL [place] # (Auto) (0.1-1.2) X10*3/uL Eos # (Auto) (0.0-0.4) X10*3/uL Baso # (Auto) (0.0-0.2) X10*3/uL Abs Immat Gran (auto) (0.00-0.03) X10*3/uL Absolute Neuts (auto) (2.0-8.3) x10*3/uL Absolute Nucleated RBC (0.0-0.012) X10*3/uL Nucleated RBC % (auto) (0.0-0.2) /100WBC PT (10.0-13.1) SEC INR (0.9-1.1) APTT (26.0-36.4) SEC D-Dimer High Sensitivty NG/ML Sodium (135-145) mmol/L Potassium (3.3-5.1) mmol/L Chloride (96-108) mmol/L Carbon Dioxide (22-29) mmol/L Anion Gap (12-20) BUN (9-16) mg/dL Creatinine (0.5-1.4) mg/dL Estim Creat Clear Calc Estimated GFR Random Glucose (60-115) mg/dL Calcium (8.4-10.2) mg/dL Total Bilirubin (0.0-1.0) mg/dL AST (5-31) U/L ALT (0-31) U/L Alkaline Phosphatase (39-117) U/L Troponin I High Sens < 3.5 (<3.5-17.0) ng/L B-Natriuretic Peptide 28 (<100) pg/mL Total Protein (6.5-8.0) g/dL Albumin (3.5-5.0) g/dL <GIOVANNA Mortensen - Last Filed: 06/07/22 11:47> Lab Results 06/06/22 06/06/22 06/06/22 Range/Units 14:01 14:01 14:01 WBC 6.1 (4.8-10.8) X10*3/uL RBC 4.59 (4.20-5.50) X10*6/uL Hgb 13.1 (12.0-16.0) g/dl Hct 40.3 (37.0-47.0) % MCV 87.8 (80.0-98.0) fL MCH 28.5 (27.0-33.0) pg MCHC 32.5 (31.0-35.0) g/dl RDW 12.3 (11.0-16.0) % Plt Count 242 (160-400) X10*3/uL MPV 11.1 (9.4-12.3) fL Immature Gran % (Auto) 0.3 (0.0-0.4) % Neut % (Auto) 67.1 (45-73) % Lymph % (Auto) 24.8 (20-40) % [place] % (Auto) 6.1 (2-11) % Eos % (Auto) 1.2 (0-4) % Baso % (Auto) 0.5 (0-2) % Lymph # (Auto) 1.5 (1.2-4.9) X10*3/uL [place] # (Auto) 0.4 (0.1-1.2) X10*3/uL Eos # (Auto) 0.1 (0.0-0.4) X10*3/uL Baso # (Auto) 0.0 (0.0-0.2) X10*3/uL Abs Immat Gran (auto) 0.02 (0.00-0.03) X10*3/uL Absolute Neuts (auto) 4.1 (2.0-8.3) x10*3/uL Absolute Nucleated RBC 0.000 (0.0-0.012) X10*3/uL Nucleated RBC % (auto) 0.0 (0.0-0.2) /100WBC PT 11.8 (10.0-13.1) SEC INR 1.0 (0.9-1.1) APTT 37.9 H (26.0-36.4) SEC D-Dimer High Sensitivty < 150 NG/ML Sodium 141 (135-145) mmol/L Potassium 3.7 (3.3-5.1) mmol/L Chloride 106 (96-108) mmol/L Carbon Dioxide 24 (22-29) mmol/L Anion Gap 15 (12-20) BUN 7 L (9-16) mg/dL Creatinine 0.73 (0.5-1.4) mg/dL Estim Creat Clear Calc 118.4 Estimated GFR > 60 Random Glucose 102 (60-115) mg/dL Calcium 9.3 (8.4-10.2) mg/dL Total Bilirubin 0.7 (0.0-1.0) mg/dL AST 26 (5-31) U/L ALT 38 H (0-31) U/L Alkaline Phosphatase 116 (39-117) U/L Troponin I High Sens (<3.5-17.0) ng/L B-Natriuretic Peptide (<100) pg/mL Total Protein 7.1 (6.5-8.0) g/dL Albumin 4.4 (3.5-5.0) g/dL 06/06/22 06/06/22 Range/Units 14:01 15:21 WBC (4.8-10.8) X10*3/uL RBC (4.20-5.50) X10*6/uL Hgb (12.0-16.0) g/dl Hct (37.0-47.0) % MCV (80.0-98.0) fL MCH (27.0-33.0) pg MCHC (31.0-35.0) g/dl RDW (11.0-16.0) % Plt Count (160-400) X10*3/uL MPV (9.4-12.3) fL Immature Gran % (Auto) (0.0-0.4) % Neut % (Auto) (45-73) % Lymph % (Auto) (20-40) % [place] % (Auto) (2-11) % Eos % (Auto) (0-4) % Baso % (Auto) (0-2) % Lymph # (Auto) (1.2-4.9) X10*3/uL [place] # (Auto) (0.1-1.2) X10*3/uL Eos # (Auto) (0.0-0.4) X10*3/uL Baso # (Auto) (0.0-0.2) X10*3/uL Abs Immat Gran (auto) (0.00-0.03) X10*3/uL Absolute Neuts (auto) (2.0-8.3) x10*3/uL Absolute Nucleated RBC (0.0-0.012) X10*3/uL Nucleated RBC % (auto) (0.0-0.2) /100WBC PT (10.0-13.1) SEC INR (0.9-1.1) APTT (26.0-36.4) SEC D-Dimer High Sensitivty NG/ML Sodium (135-145) mmol/L Potassium (3.3-5.1) mmol/L Chloride (96-108) mmol/L Carbon Dioxide (22-29) mmol/L Anion Gap (12-20) BUN (9-16) mg/dL Creatinine (0.5-1.4) mg/dL Estim Creat Clear Calc Estimated GFR Random Glucose (60-115) mg/dL Calcium (8.4-10.2) mg/dL Total Bilirubin (0.0-1.0) mg/dL AST (5-31) U/L ALT (0-31) U/L Alkaline Phosphatase (39-117) U/L Troponin I High Sens < 3.5 (<3.5-17.0) ng/L B-Natriuretic Peptide 28 (<100) pg/mL Total Protein (6.5-8.0) g/dL Albumin (3.5-5.0) g/dL <GIOVANNA Casarez Last Filed: 06/06/22 16:19> Independent Interpretation I performed an independent interpretation of an: EKG (Normal sinus rhythm ventricular rate of 70 with a normal AL interval normal QRS duration normal QT/QTC interval. Nonspecific ST abnormalities no acute ischemic change are noted.) and Plain X-Ray (Chest x-ray reviewed by myself agreeable radiologist report) <GIOVANNA Casarez - Last Filed: 06/06/22 16:19> Radiology Impression Discussion of test interpretation with radiology: I have reviewed the radiologist's reading. <GIOVANNA Casarez - Last Filed: 06/06/22 16:19> Radiologist Impression: FINDINGS: No significant abnormality is noted involving the heart, lungs, mediastinum, bony thorax or soft tissues. XR/XR chest 2V IMPRESSION: Unremarkable chest examination. <GIOVANNA Casarez - Last Filed: 06/06/22 16:19> External Record Review External record reviewed: Inpatient record, Office record, Outpatient record, Prior outpatient labs, Prior outpatient radiology, Primary care record and Outside ED record <GIOVANNA Casarez Last Filed: 06/06/22 16:19> All prior lab/imaging/records and notes that are acceptable in our system reviewed by myself <GIOVANNA Casarez Last Filed: 06/06/22 16:19> Prescription Management I considered prescription management with: Pain Medication, Antibiotic and Other (Will DC home with antibiotics and symptomatic treatment) <GIOVANNA Casarez Last Filed: 06/06/22 16:19> Discharge Plan Discharge Clinical Impression: Pain, dental, Rib pain <GIOVANNA Mortensen Last Filed: 06/07/22 11:47> Patient Disposition: Home, Self-Care <GIOVANNA Mortensen Last Filed: 06/07/22 11:47> Instructions: Chest Pain (ED), Toothache (ED) <GIOVANNA Mortensen Last Filed: 06/07/22 11:47> Prescriptions: New amoxicillin-pot clavulanate 875-125 mg tablet 1 tab PO BID 10 Days Qty: 20 0RF oxycodone-acetaminophen [Percocet] 5-325 mg tablet 1 tab PO Q6H PRN (Reason: pain) Qty: 10 0RF Rx Instructions: Partial Fill upon patient request. cyclobenzaprine 10 mg tablet 10 mg PO Q8H Qty: 14 0RF No Action ibuprofen 600 mg tablet 600 mg PO Q6H PRN (Reason: fever or pain) Qty: 20 0RF tramadol 50 mg tablet 50 mg PO Q6H PRN (Reason: pain) Qty: 8 0RF levofloxacin 500 mg tablet 500 mg PO DAILY Qty: 9 0RF ciprofloxacin-dexamethasone [Ciprodex] 0.3-0.1 % drops,suspension 4 drp otic (ears) BID 7 Days Qty: 7.5 0RF ofloxacin 0.3 % drops 10 drp otic (ears) DAILY 7 Days Qty: 5 0RF acetaminophen [Tylenol Extra Strength] 500 mg tablet 1,000 mg PO QID PRN (Reason: fever or pain) Qty: 14 0RF sulindac 200 mg tablet 200 mg PO BID Qty: 60 0RF valacyclovir [Valtrex] 500 mg tablet 500 mg PO BID 42 Days Qty: 84 0RF Rx Instructions: Start 1 tablet twice a day at 36 weeks of gestation <GIOVANNA Mortensen - Last Filed: 06/07/22 11:47> Referrals: Armand Art MD [Primary Care Provider] - 2 days <GIOVANNA Mortensen - Last Filed: 06/07/22 11:47> Stand Alone Forms: Work/School Release <GIOVANNA Mortensen - Last Filed: 06/07/22 11:47> Interventions: ED Discharge Assessment Last Done: 06/06/22 17:38 <GIOVANNA Mortensen - Last Filed: 06/07/22 11:47> Discharge Date/Time: 06/06/22 17:38 <GIOVANNA Mortensen - Last Filed: 06/07/22 11:47>
--- NOTE | 2022-06-06 13:09 | ECG_ITS ---
Test Reason : RIB BILAT PAIN Blood Pressure : / mmHG Vent. Rate : 070 BPM Atrial Rate : 070 BPM P-R Int : 134 ms QRS Dur : 074 ms QT Int : 398 ms P-R-T Axes : 016 048 018 degrees QTc Int : 429 ms Normal sinus rhythm Cannot rule out Anterior infarct , age undetermined Abnormal ECG When compared with ECG of 15-JAN-2022 01:53, Nonspecific T wave abnormality now evident in Anterior leads Referred By: Arturo Seals Electronically Signed By:JERRY DENG
[2022-06-06 14:06] LABS: MANUAL DIFF FLAG NO
[2022-06-06 14:08] LABS: Basophils Percent Auto 0.5 % (0-2); Eosinophils Absolute Auto 0.1 X10*3/uL (0.0-0.4); Eosinophils Percent Auto 1.2 % (0-4); Hematocrit 40.3 % (37.0-47.0); Hemoglobin 13.1 g/dl (12.0-16.0); Imm Gran Abs Auto 0.02 X10*3/uL (0.00-0.03); Imm Gran Pct Auto 0.3 % (0.0-0.4); Lymphocytes Absolute Auto 1.5 X10*3/uL (1.2-4.9); Lymphocytes Percent Auto 24.8 % (20-40); Mean Corpuscular HGB Conc 32.5 g/dl (31.0-35.0); Mean Corpuscular Hemoglobin 28.5 pg (27.0-33.0); Mean Corpuscular Volume 87.8 fL (80.0-98.0); Mean Platelet Volume 11.1 fL (9.4-12.3); Monocytes Absolute Auto 0.4 X10*3/uL (0.1-1.2); Monocytes Percent Auto 6.1 % (2-11); Neutrophils Absolute Auto 4.1 x10*3/uL (2.0-8.3); Neutrophils Percent Auto 67.1 % (45-73); Platelet Count 242 X10*3/uL (160-400); Red Blood Count 4.59 X10*6/uL (4.20-5.50); Red Cell Distribution Width 12.3 % (11.0-16.0); White Blood Count 6.1 X10*3/uL (4.8-10.8)
[2022-06-06 14:14] LABS: Prothrombin Time 11.8 SEC (10.0-13.1)
[2022-06-06 14:16] LABS: Partial Thromboplastin Time 37.9 SEC (26.0-36.4)
[2022-06-06 14:23] LABS: Alanine Aminotransferase 38 U/L (0-31); Albumin Level 4.4 g/dL (3.5-5.0); Alkaline Phosphatase 116 U/L (39-117); Anion Gap 15 (12-20); Aspartate Amino Transferase 26 U/L (5-31); Bilirubin Total 0.7 mg/dL (0.0-1.0); Blood Urea Nitrogen 7 mg/dL (9-16); Calcium 9.3 mg/dL (8.4-10.2); Carbon Dioxide 24 mmol/L (22-29); Chloride 106 mmol/L (96-108); Creatinine Clr Calc Pharmacy 118.4; Estimated Glomerular Filt Rate > 60; Glucose Random 102 mg/dL (60-115); Potassium 3.7 mmol/L (3.3-5.1); Sodium 141 mmol/L (135-145); Total Protein 7.1 g/dL (6.5-8.0)
[2022-06-06 14:33] LABS: B Type Natriuretic Peptide 28 pg/mL (<100)
[2022-06-06 15:48] LABS: Troponin-I High Sensitivity < 3.5 ng/L (<3.5-17.0)
[2022-06-06 15:51] LABS: D Dimer High Sensitivity < 150 NG/ML
[2022-06-06 16:16] VITALS: BP 156/91; PULSE 78; RESP 16; TEMP 36.2; O2SAT 99
[2022-06-06] MEDS: oxyCODONE HCl Immed Release 5 MG TABLET PO (17:46)
== END 2022-06-06 17:38 | disposition home or self-care (01) ==
PROVIDERS: Physician Assistant; Physician Assistant Medical; Emergency Provider Emergency Medicine; PCP Internal Medicine
DX: K08.89 Other specified disorders of teeth and supporting structures (principal); R06.02 Shortness of breath; R07.81 Pleurodynia; R07.89 Other chest pain; Z79.899 Other long term (current) drug therapy
CPT/HCPCS: 36415; 71046; 80053; 83880; 84484; 85025; 85379; 85610; 85730; 93005; 99284

== ENCOUNTER 2022-06-26 21:38 | Emergency (ER) | payer OTHER, SELFPAY ==
[2022-06-26 22:10] VITALS: BP 143/93; PULSE 84; RESP 20; TEMP 36.3; O2SAT 98; BMI 32.8
[2022-06-26 22:22] LABS: MANUAL DIFF FLAG NO
[2022-06-26 22:23] LABS: Basophils Absolute Auto 0.1 X10*3/uL (0.0-0.2); Basophils Percent Auto 0.6 % (0-2); Eosinophils Absolute Auto 0.1 X10*3/uL (0.0-0.4); Eosinophils Percent Auto 1.4 % (0-4); Hemoglobin 12.3 g/dl (12.0-16.0); Imm Gran Abs Auto 0.02 X10*3/uL (0.00-0.03); Imm Gran Pct Auto 0.3 % (0.0-0.4); Lymphocytes Absolute Auto 2.4 X10*3/uL (1.2-4.9); Lymphocytes Percent Auto 31.2 % (20-40); Mean Corpuscular HGB Conc 32.4 g/dl (31.0-35.0); Mean Corpuscular Hemoglobin 28.5 pg (27.0-33.0); Mean Platelet Volume 11.2 fL (9.4-12.3); Monocytes Absolute Auto 0.6 X10*3/uL (0.1-1.2); Monocytes Percent Auto 7.3 % (2-11); Neutrophils Absolute Auto 4.6 x10*3/uL (2.0-8.3); Neutrophils Percent Auto 59.2 % (45-73); Platelet Count 233 X10*3/uL (160-400); Red Blood Count 4.32 X10*6/uL (4.20-5.50); Red Cell Distribution Width 12.4 % (11.0-16.0); White Blood Count 7.8 X10*3/uL (4.8-10.8)
[2022-06-26 22:50] LABS: Alanine Aminotransferase 38 U/L (0-31); Albumin Level 4.4 g/dL (3.5-5.0); Alkaline Phosphatase 125 U/L (39-117); Anion Gap 12 (12-20); Aspartate Amino Transferase 25 U/L (5-31); Bilirubin Total 0.3 mg/dL (0.0-1.0); Blood Urea Nitrogen 12 mg/dL (9-16); Calcium 9.3 mg/dL (8.4-10.2); Carbon Dioxide 27 mmol/L (22-29); Chloride 108 mmol/L (96-108); Creatinine Clr Calc Pharmacy 115.4; Estimated Glomerular Filt Rate > 60; Glucose Random 115 mg/dL (60-115); Magnesium 1.8 mg/dL (1.6-2.6); Potassium 3.5 mmol/L (3.3-5.1); Sodium 143 mmol/L (135-145); Total Protein 6.9 g/dL (6.5-8.0)
[2022-06-26 22:59] LABS: HCG Quantitative < 2 mIU/mL
[2022-06-26 23:18] LABS: Appearance Urine Clear; Color Urine Yellow; Glucose Urine UA Negative (Negative); Leukocyte Esterase Urine Negative (Negative); Nitrite Urine Negative (Negative); PH 6.5 (5.0-9.0); Specific Gravity - Urine 1.025 (1.005-1.025); Urine Blood Negative (Negative); Urine Ketones Negative (Negative); Urine Protein Negative (Neg-Trace)
--- NOTE | 2022-06-26 23:41 | ED.GENADULT ---
HPI - General Adult General Chief complaint: General Medical Stated complaint: lower abd pain Time Seen by Provider: 06/26/22 23:39 Source: patient Mode of arrival: ambulatory Limitations: no limitations History of Present Illness HPI narrative: Patient is a 36 year old assigned female at with no reported medical history presenting to the emergency department today with left sided flank pain. Patient states that over the last few hours she has had left sided flank pain. Patient denies any dizziness, lightheadedness, abdominal pain, nausea, vomiting, fever, chills, blurry vision, double vision, loss of vision, chest pain, difficulty breathing, shortness of breath, night sweats, pain with urination, increased urinary frequency, increased urinary urgency, blood in her urine or stool, syncope or a near syncopal episode, recent trauma or falls, bowel incontinence, bladder incontinence, bowel retention, bladder retention, or any other complaints at this time. Onset (ago): hour(s) Location: back Severity: mild Severity scale (1-10): 3 Relieving factors: none Exacerbating factors: none Associated symptoms: denies other symptoms Treatments prior to arrival: none Related Data Previous Rx's Medication Instructions Recorded valacyclovir 500 mg tablet 500 mg PO BID 6 weeks #84 tabs 10/29/21 (Valtrex) ibuprofen 600 mg tablet 600 mg PO Q6H PRN fever or pain 01/15/22 #20 tabs ciprofloxacin 0.3 %-dexamethasone 4 drp otic (ears) BID 7 days #7.5 03/14/22 0.1 % ear drops,suspension mL (Ciprodex) levofloxacin 500 mg tablet 500 mg PO DAILY #9 tabs 03/14/22 ofloxacin 0.3 % ear drops 10 drp otic (ears) DAILY 7 days #5 03/14/22 mL tramadol 50 mg tablet 50 mg PO Q6H PRN pain #8 tabs 03/14/22 acetaminophen 500 mg tablet 1,000 mg PO QID PRN fever or pain 03/18/22 (Tylenol Extra Strength) #14 tabs sulindac 200 mg tablet 200 mg PO BID #60 tabs 06/01/22 amoxicillin 875 mg-potassium 1 tab PO BID 10 days #20 tabs 06/06/22 clavulanate 125 mg tablet cyclobenzaprine 10 mg tablet 10 mg PO Q8H #14 tabs 06/06/22 oxycodone-acetaminophen 5 mg-325 1 tab PO Q6H PRN pain #10 tabs 06/06/22 mg tablet (Percocet) Allergies Allergy/AdvReac Type Severity Reaction Status Date / Time No Known Allergies Allergy Verified 06/06/22 12:37 [No Known Allergies*] Review of Systems Constitutional: Constitutional: Reports no additional constitutional complaints, Denies chills, Denies fever(s) and Denies night sweats Eyes: Eyes: Reports no additional eye complaints, Denies blurry vision, Denies change in vision, Denies diplopia, Denies eye discharge, Denies loss of vision and Denies eye pain ENT: Denies dizziness Cardiovascular: Cardiovascular: Reports no additional cardiovascular complaints, Denies chest pain, Denies lightheadedness, Denies Loss of Consciousness and Denies dyspnea Respiratory: Respiratory: Reports no additional respiratory complaints and Denies dyspnea Gastrointestinal: Gastrointestinal: Reports no additional gastrointestinal complaints, Denies abdominal pain, Denies melena, Denies hematochezia, Denies change in bowel habits and Denies change in stool character Genitourinary: Genitourinary: Denies hematuria, Denies urinary frequency, Denies dysuria, Reports flank pain, Denies urinary incontinence, Denies urinary hesitancy and Denies urinary urgency Musculoskeletal: Musculoskeletal: Reports no additional musculoskeletal complaints, Denies numbness and Denies tingling Neurologic: Denies dizziness, Denies loss of vision, Denies numbness and Denies tingling Psychiatric: Psychiatric: Reports no additional psychiatric complaints Endocrine: Endocrine: Reports no additional endocrine complaints Hematologic/Lymphatic: Hematologic/Lymphatic: Reports no additional hematologic/lymphatic complaints Allergic/Immunologic: Allergic/Immunologic: Reports no additional allergic/immunologic complaints FOR[facility]LY [facility] Past Medical History Attestation statement: The following information was validated with the patient. Source: old records reviewed and nursing notes reviewed Medical History No known health problems Surgical History No pertinent past surgical history Family History Family History Mother HTN (hypertension) Father Diabetes 1.5, managed as type 1 Maternal Grandmother Colon cancer Breast cancer Social History Social History Household Members: Children Housing: Condominium Alcohol intake: never Patient Tobacco Use Status: Never used Tobacco e-Cigarette/Vaping Use: Never Used Second Hand Smoke Exposure: No Substance Use Type: Marijuana Special nimco needs: No Agree to transfusion: Yes Advance Directives: No Advance Directives Information Provided: No service: No Current occupational status: employed Gender identity: Female Cognitive needs: No Hearing needs: No Vision needs: No Physical Exam ED Vital Signs: Vital Signs - 24 hr 06/26/22 22:10 Temperature 97.3 F Pulse Rate 84 Respiratory Rate 20 Blood Pressure 143/93 H Pulse Oximetry 98 Oxygen Delivery Method Room Air BMI result Body Mass Index 32.8 Const General: cooperative, no acute distress, alert and awake Nutritional Appearance: well nourished Orientation/consciousness: patient oriented x3 Limitations: no limitations HENMT Head: Yes normal to inspection and Yes atraumatic Ears: hearing grossly normal bilaterally and external ears normal General nose exam: Normal external nose present, no nasal discharge noted and no epistaxis Face and sinus: Yes normal facial exam, No abrasion and No laceration Mouth: Normal oral and palatal mucosa present, no drooling and no muffled voice Eyes General: appearance normal, both eyes and all related structures Periorbital: periorbital findings normal Eyelids: Yes eyelids normal Conjunctivae: conjunctivae normal Pupils: Equal, round and reactive pupils present EOM: EOMs intact bilaterally Neck Neck: Yes normal visual inspection, Yes full ROM and Yes no lymphadenopathy Chest Chest palpation & inspection: normal inspection of the chest Resp Effort & Inspection: normal respiratory effort and able to speak in complete sentences Auscultation: clear to auscultation bilaterally Cardio Rate: regular rate Rhythm: regular rhythm GI Inspection: Yes normal to inspection General: Yes no CVA tenderness Back/Spine/Pelvis Back: no CVA tenderness Neuro General: patient oriented x3 and moves all extremities Cranial nerves: Yes Equal, round and reactive pupils present Cognition (Neuro): normal cognition Motor exam (neuro): 5/5 motor strength present throughout Sensory Exam: Normal double simultaneous stimulation for sensation Coordination: [id number] test normal Extrem General: Yes normal to inspection, Yes full ROM and Yes capillary refill normal Psych Appearance: grossly normal Mental Status: mental status grossly normal Affect: normal affect Attitude: cooperative Thought process: Normal thought process present Thought content: Normal thought content present Insight: Good insight present (Psych) Medications Administered Discontinued Medications Generic Name Dose Route Start Last Admin Trade Name Mauricio PRN Reason Stop Dose Admin Ketorolac Tromethamine 15 mg 06/26/22 23:49 06/26/22 23:55 Ketorolac Tromethamine 15 Mg/Ml Vial IM 06/26/22 23:50 15 mg ONCE ONE Administration Medical Decision Making Medical Decision Making [facility] Narrative: Patient is a 36 year old assigned female at with no reported medical history presenting to the emergency department today with left flank pain. Patient's physical exam was unremarkable. Patient's blood work was unremarkable. Patient's urine showed no acute process. I explained my physical exam findings as well as all test results to the patient. I answered all questions asked by the patient. Patient received IM Toradol which she stated helped her symptoms significantly. I stressed the importance of the patient taking her medication as prescribed. I stressed the importance of the patient following up with her primary care provider. I stressed the importance of the patient returning to the emergency department immediately if her symptoms were to worsen or if she were to develop any dizziness, shortness of breath, difficulty breathing, chest pain, blurry vision, loss of vision, nausea, vomiting, abdominal pain, fever, chills, back pain, or any other complaints. Patient verbalized agreement and understanding with this treatment plan and discharge. Differential Diagnosis Differential Diagnoses: The differential diagnosis associated with the presentation includes flank pain Lab Data [facility] Lab Attestation statement: I reviewed the patient's lab results. 06/26/22 22:18 06/26/22 22:18 Labs: Lab Results 06/26/22 06/26/22 06/26/22 Range/Units 22:18 22:18 23:10 WBC 7.8 (4.8-10.8) X10*3/uL RBC 4.32 (4.20-5.50) X10*6/uL Hgb 12.3 (12.0-16.0) g/dl Hct 38.0 (37.0-47.0) % MCV 88.0 (80.0-98.0) fL MCH 28.5 (27.0-33.0) pg MCHC 32.4 (31.0-35.0) g/dl RDW 12.4 (11.0-16.0) % Plt Count 233 (160-400) X10*3/uL MPV 11.2 (9.4-12.3) fL Immature Gran % (Auto) 0.3 (0.0-0.4) % Neut % (Auto) 59.2 (45-73) % Lymph % (Auto) 31.2 (20-40) % [place] % (Auto) 7.3 (2-11) % Eos % (Auto) 1.4 (0-4) % Baso % (Auto) 0.6 (0-2) % Lymph # (Auto) 2.4 (1.2-4.9) X10*3/uL [place] # (Auto) 0.6 (0.1-1.2) X10*3/uL Eos # (Auto) 0.1 (0.0-0.4) X10*3/uL Baso # (Auto) 0.1 (0.0-0.2) X10*3/uL Abs Immat Gran (auto) 0.02 (0.00-0.03) X10*3/uL Absolute Neuts (auto) 4.6 (2.0-8.3) x10*3/uL Absolute Nucleated RBC 0.000 (0.0-0.012) X10*3/uL Nucleated RBC % (auto) 0.0 (0.0-0.2) /100WBC Sodium 143 (135-145) mmol/L Potassium 3.5 (3.3-5.1) mmol/L Chloride 108 (96-108) mmol/L Carbon Dioxide 27 (22-29) mmol/L Anion Gap 12 (12-20) BUN 12 (9-16) mg/dL Creatinine 0.77 (0.5-1.4) mg/dL Estim Creat Clear Calc 115.4 Estimated GFR > 60 Random Glucose 115 (60-115) mg/dL Calcium 9.3 (8.4-10.2) mg/dL Magnesium 1.8 (1.6-2.6) mg/dL Total Bilirubin 0.3 (0.0-1.0) mg/dL AST 25 (5-31) U/L ALT 38 H (0-31) U/L Alkaline Phosphatase 125 H (39-117) U/L Total Protein 6.9 (6.5-8.0) g/dL Albumin 4.4 (3.5-5.0) g/dL Beta HCG, Quant < 2 mIU/mL Urine Color Yellow Urine Appearance Clear Urine pH 6.5 (5.0-9.0) Ur Specific [place] 1.025 (1.005-1.025) Urine Protein Negative (Neg-Trace) mg/dL Urine Glucose (UA) Negative (Negative) mg/dL Urine Ketones Negative (Negative) mg/dL Urine Blood Negative (Negative) Urine Nitrite Negative (Negative) Ur Leukocyte Esterase Negative (Negative) Discharge Plan Discharge Clinical Impression: Flank pain Patient Disposition: Home, Self-Care Instructions: Flank Pain (ED) Additional Instructions: Follow up with your primary care provider. Return to the emergency department immediately if your symptoms worsen or if you develop any dizziness, shortness of breath, difficulty breathing, chest pain, blurry vision, loss of vision, nausea, vomiting, abdominal pain, fever, chills, back pain, or any other complaints. Prescriptions: No Action ibuprofen 600 mg tablet 600 mg PO Q6H PRN (Reason: fever or pain) Qty: 20 0RF tramadol 50 mg tablet 50 mg PO Q6H PRN (Reason: pain) Qty: 8 0RF levofloxacin 500 mg tablet 500 mg PO DAILY Qty: 9 0RF ciprofloxacin-dexamethasone [Ciprodex] 0.3-0.1 % drops,suspension 4 drp otic (ears) BID 7 Days Qty: 7.5 0RF ofloxacin 0.3 % drops 10 drp otic (ears) DAILY 7 Days Qty: 5 0RF acetaminophen [Tylenol Extra Strength] 500 mg tablet 1,000 mg PO QID PRN (Reason: fever or pain) Qty: 14 0RF amoxicillin-pot clavulanate 875-125 mg tablet 1 tab PO BID 10 Days Qty: 20 0RF oxycodone-acetaminophen [Percocet] 5-325 mg tablet 1 tab PO Q6H PRN (Reason: pain) Qty: 10 0RF Rx Instructions: Partial Fill upon patient request. cyclobenzaprine 10 mg tablet 10 mg PO Q8H Qty: 14 0RF sulindac 200 mg tablet 200 mg PO BID Qty: 60 0RF valacyclovir [Valtrex] 500 mg tablet 500 mg PO BID 42 Days Qty: 84 0RF Rx Instructions: Start 1 tablet twice a day at 36 weeks of gestation Referrals: Armand Art MD [Primary Care Provider] - Stand Alone Forms: Work/School Release Interventions: ED Discharge Assessment Last Done: 06/27/22 00:01 Discharge Date/Time: 06/27/22 00:02 Print Language: Czech
[2022-06-26] MEDS: Ketorolac Tromethamine 15 MG/ML VIAL IM (23:55)
== END 2022-06-27 00:02 | disposition home or self-care (01) ==
PROVIDERS: Physician Assistant Medical; Emergency Provider Emergency Medicine Emergency Medical Services; PCP Internal Medicine
DX: R10.9 Unspecified abdominal pain (principal)
CPT/HCPCS: 36415; 80053; 81003; 83735; 84702; 85025; 96372; 99283; 99284; J1885

== ENCOUNTER 2022-07-04 01:15 | Emergency (ER) | payer OTHER, SELFPAY ==
[2022-07-04 01:20] VITALS: BP 172/87; PULSE 106; RESP 20; TEMP 36.3; O2SAT 98; BMI 31.3
[2022-07-04 01:39] LABS: MANUAL DIFF FLAG NO
[2022-07-04 01:40] LABS: Basophils Percent Auto 0.6 % (0-2); Eosinophils Absolute Auto 0.1 X10*3/uL (0.0-0.4); Eosinophils Percent Auto 1.4 % (0-4); Hematocrit 38.1 % (37.0-47.0); Hemoglobin 12.3 g/dl (12.0-16.0); Imm Gran Abs Auto 0.01 X10*3/uL (0.00-0.03); Imm Gran Pct Auto 0.1 % (0.0-0.4); Lymphocytes Absolute Auto 2.2 X10*3/uL (1.2-4.9); Lymphocytes Percent Auto 29.9 % (20-40); Mean Corpuscular HGB Conc 32.3 g/dl (31.0-35.0); Mean Corpuscular Hemoglobin 28.5 pg (27.0-33.0); Mean Corpuscular Volume 88.2 fL (80.0-98.0); Mean Platelet Volume 11.2 fL (9.4-12.3); Monocytes Absolute Auto 0.6 X10*3/uL (0.1-1.2); Monocytes Percent Auto 8.5 % (2-11); Neutrophils Absolute Auto 4.3 x10*3/uL (2.0-8.3); Neutrophils Percent Auto 59.5 % (45-73); Platelet Count 226 X10*3/uL (160-400); Red Blood Count 4.32 X10*6/uL (4.20-5.50); Red Cell Distribution Width 12.4 % (11.0-16.0); White Blood Count 7.3 X10*3/uL (4.8-10.8)
[2022-07-04 02:01] LABS: Anion Gap 14 (12-20); Blood Urea Nitrogen 12 mg/dL (9-16); Calcium 9.3 mg/dL (8.4-10.2); Carbon Dioxide 27 mmol/L (22-29); Chloride 108 mmol/L (96-108); Creatinine Clr Calc Pharmacy 93.4; Estimated Glomerular Filt Rate > 60; Glucose Fasting 103 mg/dL (60-99); Potassium 3.5 mmol/L (3.3-5.1); Sodium 145 mmol/L (135-145)
[2022-07-04 02:33] LABS: Appearance Urine Clear; Color Urine Yellow; Glucose Urine UA Negative (Negative); Leukocyte Esterase Urine Negative (Negative); Nitrite Urine Negative (Negative); Specific Gravity - Urine >= 1.030 (1.005-1.025); Urine Blood Negative (Negative); Urine Ketones Trace mg/dL (Negative); Urine Protein Trace mg/dL (Neg-Trace)
[2022-07-04 02:34] LABS: UPreg QC Valid YES; Urine Pregnancy NEGATIVE (NEGATIVE)
[2022-07-04 02:45] LABS: Bacteria Urine None Seen (None Seen); Hyaline Casts Urine 0-2 /LPF (0-2); RBC Urine 0-2 /HPF (0-2); Squamous Epithelial Cell Urine 0-2 /HPF (0-2); WBC Urine 0-5 /HPF (0-5)
[2022-07-04 04:11] VITALS: BP 154/91; PULSE 85; RESP 16; TEMP 36.7; O2SAT 98
--- NOTE | 2022-07-04 05:12 | ED.GENADULT ---
HPI - General Adult General Chief complaint: Recheck/Abnormal Lab/Rx Stated complaint: kidney stones Time Seen by Provider: 07/04/22 05:02 Source: patient Mode of arrival: ambulatory Limitations: no limitations History of Present Illness HPI narrative: 36-year-old female presents with left lower back pain. Pain started approximately 1 week ago. The pain is moderate to severe. Described as sharp and aching in nature. Occasionally radiates anteriorly. It is worse with movement, twisting, lifting. It is not associated with nausea, vomiting or diarrhea. She does report urinary frequency and dysuria but no hematuria. Patient has had similar pain in the past and she was told was a kidney stone. Patient was in the emergency department approximately 1 week ago. Workup was benign. She was discharged after receiving a shot of medication but her symptoms did not significantly improved. Related Data Previous Rx's Medication Instructions Recorded valacyclovir 500 mg tablet 500 mg PO BID 6 weeks #84 tabs 10/29/21 (Valtrex) ibuprofen 600 mg tablet 600 mg PO Q6H PRN fever or pain 01/15/22 #20 tabs ciprofloxacin 0.3 %-dexamethasone 4 drp otic (ears) BID 7 days #7.5 03/14/22 0.1 % ear drops,suspension mL (Ciprodex) levofloxacin 500 mg tablet 500 mg PO DAILY #9 tabs 03/14/22 ofloxacin 0.3 % ear drops 10 drp otic (ears) DAILY 7 days #5 03/14/22 mL tramadol 50 mg tablet 50 mg PO Q6H PRN pain #8 tabs 03/14/22 acetaminophen 500 mg tablet 1,000 mg PO QID PRN fever or pain 03/18/22 (Tylenol Extra Strength) #14 tabs sulindac 200 mg tablet 200 mg PO BID #60 tabs 06/01/22 amoxicillin 875 mg-potassium 1 tab PO BID 10 days #20 tabs 06/06/22 clavulanate 125 mg tablet cyclobenzaprine 10 mg tablet 10 mg PO Q8H #14 tabs 06/06/22 oxycodone-acetaminophen 5 mg-325 1 tab PO Q6H PRN pain #10 tabs 06/06/22 mg tablet (Percocet) cyclobenzaprine 10 mg tablet 10 mg PO TID PRN muscle spasm #10 04/23/23 tabs naproxen 500 mg tablet 500 mg PO BID #20 tabs 07/04/22 Allergies Allergy/AdvReac Type Severity Reaction Status Date / Time No Known Allergies Allergy Verified 06/06/22 12:37 [No Known Allergies*] [facility] Past Medical History Medical History No known health problems Surgical History No pertinent past surgical history Family History Family History Mother HTN (hypertension) Father Diabetes 1.5, managed as type 1 Maternal Grandmother Colon cancer Breast cancer Social History Social History Household Members: Children Housing: [facility] Alcohol intake: current Alcohol intake frequency: holidays/special occasions only Alcohol type: hard liquor Patient Tobacco Use Status: Never used Tobacco Smoked in Last 30 Days: Yes e-Cigarette/Vaping Use: Never Used Second Hand Smoke Exposure: No Use of substances other than those prescribed or required for medical reasons: No Substance Use Type: Marijuana Special nimco needs: No Agree to transfusion: Yes Advance Directives: No Advance Directives Information Provided: Yes Patient : No service: No Current occupational status: employed Gender identity: Female Cognitive needs: No Hearing needs: No Vision needs: No Physical Exam ED Vital Signs: Vital Signs - 24 hr 07/04/22 01:20 07/04/22 04:11 Temperature 97.4 F 98.1 F Pulse Rate 106 H 85 Respiratory Rate 20 16 Blood Pressure 172/87 H 154/91 H Pulse Oximetry 98 98 Oxygen Delivery Method Room Air Room Air BMI result Body Mass Index 31.3 GEN: Well developed, no acute distress, alert, oriented HEENT: Normocephalic, atraumatic, normal external ears, nose appears normal, no oropharyngeal edema or exudates Eyes: Normal to appearance Neck: Supple, no lymphadenopathy Respiratory: Talks in complete sentences, no respiratory distress, clear to auscultation bilaterally Cardiovascular: Regular rate and rhythm, no murmurs rubs or gallops Abdomen: Soft, nontender, nondistended, no guarding, no rebound Back: No CVA tenderness, left lumbar paraspinous, lateral pain on the left side as well. No midline tenderness Extremities: No clubbing cyanosis or edema Neurologic: No focal neurologic deficits, cranial nerves 2-12 intact, strength is 5/5 bilaterally Skin: No rash Course Course Course Narrative: 36-year-old female presents with left low back pain. Patient thought it might be a kidney stone. She also had some urinary complaints. Her examination revealed tenderness to light palpation on the left lumbar paraspinous low back area. She had no abdominal tenderness, rebound or guarding. Her laboratory analysis was unremarkable for acute elevated white blood cell count or left shift. She has no evidence of urinary tract infection or hematuria to suggest pyelonephritis. She has no CVA tenderness to suggest acute renal colic. Given her symptoms and exam, or cough most likely diagnosis is musculoskeletal back pain. Would recommend NSAIDs and muscle relaxers and follow-up with her primary care provider. For worsening symptoms, she was instructed to return to the emergency department or urgent care center for re-evaluation. Medical Decision Making Medical Decision Making [facility] Narrative: 36-year-old female presents with left lower back to. Her examination reveals no CVA tenderness. She has tenderness to the left lower back with light palpation. She has no abdominal tenderness, rebound or guarding. Differential diagnosis includes musculoskeletal pain, sprain, strain, spasm, less likely shingles and she has no rash after 1 week, doubt renal colic, diverticulitis, colitis, IBD, IBS. She could have urinary tract infection or pyelonephritis. Will obtain routine laboratory analysis, urinalysis and re-evaluate patient. Differential Diagnosis Differential Diagnoses: The differential diagnosis associated with the presentation includes (Renal colic, UTI, pyelonephritis, back pain, musculoskeletal pain, strain, sprain, spasm, shingles) Low back pain Lab Data [facility] Lab Attestation statement: I reviewed the patient's lab results. 07/04/22 01:30 07/04/22 01:30 Labs: Lab Results 07/04/22 07/04/22 07/04/22 Range/Units 01:30 01:30 02:26 WBC 7.3 (4.8-10.8) X10*3/uL RBC 4.32 (4.20-5.50) X10*6/uL Hgb 12.3 (12.0-16.0) g/dl Hct 38.1 (37.0-47.0) % MCV 88.2 (80.0-98.0) fL MCH 28.5 (27.0-33.0) pg MCHC 32.3 (31.0-35.0) g/dl RDW 12.4 (11.0-16.0) % Plt Count 226 (160-400) X10*3/uL MPV 11.2 (9.4-12.3) fL Immature Gran % (Auto) 0.1 (0.0-0.4) % Neut % (Auto) 59.5 (45-73) % Lymph % (Auto) 29.9 (20-40) % [place] % (Auto) 8.5 (2-11) % Eos % (Auto) 1.4 (0-4) % Baso % (Auto) 0.6 (0-2) % Lymph # (Auto) 2.2 (1.2-4.9) X10*3/uL [place] # (Auto) 0.6 (0.1-1.2) X10*3/uL Eos # (Auto) 0.1 (0.0-0.4) X10*3/uL Baso # (Auto) 0.0 (0.0-0.2) X10*3/uL Abs Immat Gran (auto) 0.01 (0.00-0.03) X10*3/uL Absolute Neuts (auto) 4.3 (2.0-8.3) x10*3/uL Absolute Nucleated RBC 0.000 (0.0-0.012) X10*3/uL Nucleated RBC % (auto) 0.0 (0.0-0.2) /100WBC Sodium 145 (135-145) mmol/L Potassium 3.5 (3.3-5.1) mmol/L Chloride 108 (96-108) mmol/L Carbon Dioxide 27 (22-29) mmol/L Anion Gap 14 (12-20) BUN 12 (9-16) mg/dL Creatinine 0.93 (0.5-1.4) mg/dL Estim Creat Clear Calc 93.4 Estimated GFR > 60 Fasting Glucose 103 H (60-99) mg/dL Calcium 9.3 (8.4-10.2) mg/dL Urine Color Yellow Urine Appearance Clear Urine pH 6.0 (5.0-9.0) Ur Specific [place] >= 1.030 H (1.005-1.025) Urine Protein Trace (Neg-Trace) mg/dL Urine Glucose (UA) Negative (Negative) mg/dL Urine Ketones Trace (Negative) mg/dL Urine Blood Negative (Negative) Urine Nitrite Negative (Negative) Ur Leukocyte Esterase Negative (Negative) Urine RBC 0-2 (0-2) /HPF Urine WBC 0-5 (0-5) /HPF Ur Squamous Epith Cells 0-2 (0-2) /HPF Urine Bacteria None Seen (None Seen) Hyaline Casts 0-2 (0-2) /LPF Urine Test (NEGATIVE) 07/04/22 Range/Units 02:26 WBC (4.8-10.8) X10*3/uL RBC (4.20-5.50) X10*6/uL Hgb (12.0-16.0) g/dl Hct (37.0-47.0) % MCV (80.0-98.0) fL MCH (27.0-33.0) pg MCHC (31.0-35.0) g/dl RDW (11.0-16.0) % Plt Count (160-400) X10*3/uL MPV (9.4-12.3) fL Immature Gran % (Auto) (0.0-0.4) % Neut % (Auto) (45-73) % Lymph % (Auto) (20-40) % [place] % (Auto) (2-11) % Eos % (Auto) (0-4) % Baso % (Auto) (0-2) % Lymph # (Auto) (1.2-4.9) X10*3/uL [place] # (Auto) (0.1-1.2) X10*3/uL Eos # (Auto) (0.0-0.4) X10*3/uL Baso # (Auto) (0.0-0.2) X10*3/uL Abs Immat Gran (auto) (0.00-0.03) X10*3/uL Absolute Neuts (auto) (2.0-8.3) x10*3/uL Absolute Nucleated RBC (0.0-0.012) X10*3/uL Nucleated RBC % (auto) (0.0-0.2) /100WBC Sodium (135-145) mmol/L Potassium (3.3-5.1) mmol/L Chloride (96-108) mmol/L Carbon Dioxide (22-29) mmol/L Anion Gap (12-20) BUN (9-16) mg/dL Creatinine (0.5-1.4) mg/dL Estim Creat Clear Calc Estimated GFR Fasting Glucose (60-99) mg/dL Calcium (8.4-10.2) mg/dL Urine Color Urine Appearance Urine pH (5.0-9.0) Ur Specific [place] (1.005-1.025) Urine Protein (Neg-Trace) mg/dL Urine Glucose (UA) (Negative) mg/dL Urine Ketones (Negative) mg/dL Urine Blood (Negative) Urine Nitrite (Negative) Ur Leukocyte Esterase (Negative) Urine RBC (0-2) /HPF Urine WBC (0-5) /HPF Ur Squamous Epith Cells (0-2) /HPF Urine Bacteria (None Seen) Hyaline Casts (0-2) /LPF Urine Test NEGATIVE (NEGATIVE) Tests considered The following testing was considered but not selected: CT scan, ultrasound Prescription Management I considered prescription management with: Pain Medication and Antibiotic Chronic Conditions Patient?s care impacted by: Hypertension Discharge Plan Discharge Clinical Impression: Low back pain Patient Disposition: Home, Self-Care Instructions: Acute Low Back Pain (ED) Additional Instructions: For pain, I am recommending naproxen 500 mg twice daily for 7-14 days. For additional pain relief, take Tylenol extra-strength 2 tablets every 6 hours as needed for additional pain relief. He may also take cyclobenzaprine, a muscle relaxer every 8 hours as needed. This may cause drowsiness so be wary of operating machinery or driving while on this medication. Recommending follow-up with her primary care provider. Consider complementary care such as physical therapy, acupuncture, chiropractics, cupping, etc.. Prescriptions: New naproxen 500 mg tablet 500 mg PO BID Qty: 20 0RF cyclobenzaprine 10 mg tablet 10 mg PO TID PRN (Reason: muscle spasm) Qty: 10 0RF No Action ibuprofen 600 mg tablet 600 mg PO Q6H PRN (Reason: fever or pain) Qty: 20 0RF tramadol 50 mg tablet 50 mg PO Q6H PRN (Reason: pain) Qty: 8 0RF levofloxacin 500 mg tablet 500 mg PO DAILY Qty: 9 0RF ciprofloxacin-dexamethasone [Ciprodex] 0.3-0.1 % drops,suspension 4 drp otic (ears) BID 7 Days Qty: 7.5 0RF ofloxacin 0.3 % drops 10 drp otic (ears) DAILY 7 Days Qty: 5 0RF acetaminophen [Tylenol Extra Strength] 500 mg tablet 1,000 mg PO QID PRN (Reason: fever or pain) Qty: 14 0RF amoxicillin-pot clavulanate 875-125 mg tablet 1 tab PO BID 10 Days Qty: 20 0RF oxycodone-acetaminophen [Percocet] 5-325 mg tablet 1 tab PO Q6H PRN (Reason: pain) Qty: 10 0RF Rx Instructions: Partial Fill upon patient request. cyclobenzaprine 10 mg tablet 10 mg PO Q8H Qty: 14 0RF sulindac 200 mg tablet 200 mg PO BID Qty: 60 0RF valacyclovir [Valtrex] 500 mg tablet 500 mg PO BID 42 Days Qty: 84 0RF Rx Instructions: Start 1 tablet twice a day at 36 weeks of gestation Referrals: Physician,Unknown J [Primary Care Provider] - 1 week
== END 2022-07-04 05:35 | disposition home or self-care (01) ==
PROVIDERS: Emergency Provider Emergency Medicine
DX: M54.50 Low back pain, unspecified (principal); Z79.899 Other long term (current) drug therapy
CPT/HCPCS: 36415; 80048; 81001; 81025; 85025; 99284

== ENCOUNTER 2022-08-26 22:06 | Emergency (ER) | payer OTHER, SELFPAY ==
--- NOTE | 2022-08-26 | ECG_ITS ---
Test Reason : chest pain Blood Pressure : / mmHG Vent. Rate : 097 BPM Atrial Rate : 097 BPM P-R Int : 158 ms QRS Dur : 080 ms QT Int : 350 ms P-R-T Axes : 011 025 006 degrees QTc Int : 444 ms Normal sinus rhythm Possible Anterior infarct (cited on or before 06-JUN-2022) Abnormal ECG When compared with ECG of 06-JUN-2022 13:47, No significant change was found Referred By: Wing Musa Electronically Signed By:LINO JONES MD
[2022-08-26 22:10] VITALS: BP 117/75; PULSE 100; RESP 18; TEMP 36.6; O2SAT 98; BMI 29.0
[2022-08-26 22:32] LABS: MANUAL DIFF FLAG NO
[2022-08-26 22:33] LABS: Basophils Percent Auto 0.4 % (0-2); Eosinophils Absolute Auto 0.1 X10*3/uL (0.0-0.4); Eosinophils Percent Auto 1.4 % (0-4); Hematocrit 37.1 % (37.0-47.0); Hemoglobin 12.1 g/dl (12.0-16.0); Imm Gran Abs Auto 0.06 X10*3/uL (0.00-0.03); Imm Gran Pct Auto 0.8 % (0.0-0.4); Lymphocytes Percent Auto 25.3 % (20-40); Mean Corpuscular HGB Conc 32.6 g/dl (31.0-35.0); Mean Corpuscular Hemoglobin 28.7 pg (27.0-33.0); Mean Corpuscular Volume 88.1 fL (80.0-98.0); Mean Platelet Volume 11.3 fL (9.4-12.3); Monocytes Absolute Auto 0.6 X10*3/uL (0.1-1.2); Neutrophils Absolute Auto 5.2 x10*3/uL (2.0-8.3); Neutrophils Percent Auto 65.1 % (45-73); Platelet Count 236 X10*3/uL (160-400); Red Blood Count 4.21 X10*6/uL (4.20-5.50); Red Cell Distribution Width 12.4 % (11.0-16.0)
[2022-08-26 22:45] LABS: Anion Gap 17 (12-20); Blood Urea Nitrogen 14 mg/dL (9-16); Calcium 9.9 mg/dL (8.4-10.2); Carbon Dioxide 26 mmol/L (22-29); Chloride 104 mmol/L (96-108); Creatinine Clr Calc Pharmacy 93.1; Estimated Glomerular Filt Rate > 60; Glucose Random 117 mg/dL (60-115); Potassium 3.6 mmol/L (3.3-5.1); Sodium 143 mmol/L (135-145)
[2022-08-26 22:50] VITALS: BP 114/67; PULSE 95; RESP 19; O2SAT 97
[2022-08-26 22:52] LABS: B Type Natriuretic Peptide 19 pg/mL (<100)
[2022-08-26 22:56] LABS: Troponin-I High Sensitivity < 2.7 ng/L (<3.5-17.0)
--- NOTE | 2022-08-26 23:30 | ED.CHESTPAIN ---
HPI - Chest Pain General Chief Complaint: Chest Pain Stated Complaint: swollen feet Time Seen by Provider: 08/26/22 23:27 Source: patient Mode of arrival: ambulatory Limitations: no limitations History of Present Illness HPI narrative: Patient history of gestational hypertension on nifedipine but she stopped taking for 3 months restarted taking for last 3 days now comes here for ankle edema was 3 days. Also patient been standing for long hours at work. Patient also complaining of chest pain his discomfort dull pain for last 3 days increases on palpation no relation with exertion Related Data Previous Rx's Medication Instructions Recorded valacyclovir 500 mg tablet 500 mg PO BID 6 weeks #84 tabs 10/29/21 (Valtrex) ibuprofen 600 mg tablet 600 mg PO Q6H PRN fever or pain 01/15/22 #20 tabs ciprofloxacin 0.3 %-dexamethasone 4 drp otic (ears) BID 7 days #7.5 03/14/22 0.1 % ear drops,suspension mL (Ciprodex) levofloxacin 500 mg tablet 500 mg PO DAILY #9 tabs 03/14/22 ofloxacin 0.3 % ear drops 10 drp otic (ears) DAILY 7 days #5 03/14/22 mL tramadol 50 mg tablet 50 mg PO Q6H PRN pain #8 tabs 03/14/22 acetaminophen 500 mg tablet 1,000 mg PO QID PRN fever or pain 03/18/22 (Tylenol Extra Strength) #14 tabs amoxicillin 875 mg-potassium 1 tab PO BID 10 days #20 tabs 06/06/22 clavulanate 125 mg tablet cyclobenzaprine 10 mg tablet 10 mg PO Q8H #14 tabs 06/06/22 oxycodone-acetaminophen 5 mg-325 1 tab PO Q6H PRN pain #10 tabs 06/06/22 mg tablet (Percocet) cyclobenzaprine 10 mg tablet 10 mg PO TID PRN muscle spasm #10 07/04/22 tabs naproxen 500 mg tablet 500 mg PO BID #20 tabs 07/04/22 sulindac 200 mg tablet 200 mg PO BID #60 tabs 07/07/22 Allergies Allergy/AdvReac Type Severity Reaction Status Date / Time No Known Allergies Allergy Verified 06/06/22 12:37 [No Known Allergies*] Review of Systems Review of Systems: Yes all other systems are reviewed and are negative PMFSH Past Medical History Medical History No known health problems Surgical History No pertinent past surgical history Family History Family History Mother HTN (hypertension) Father Diabetes 1.5, managed as type 1 Maternal Grandmother Colon cancer Breast cancer Social History Social History Household Members: Children Housing: [facility] Alcohol intake: never Patient Tobacco Use Status: Never used Tobacco Smoked in Last 30 Days: No e-Cigarette/Vaping Use: Never Used Second Hand Smoke Exposure: No Use of substances other than those prescribed or required for medical reasons: Yes Substance Use Type: Marijuana Substance Use Frequency: Chronic Longstanding Special nimco needs: No Agree to transfusion: Yes Advance Directives: No Advance Directives Information Provided: Yes Patient : No service: No Current occupational status: employed Gender identity: Female Cognitive needs: No Hearing needs: No Vision needs: No Physical Exam Vital Signs: Vital Signs: Last Vital Signs Temp 97.8 F 08/26/22 22:10 Pulse 95 08/26/22 22:50 Resp 19 08/26/22 22:50 BP 114/67 08/26/22 22:50 Pulse Ox 97 08/26/22 22:50 O2 Del Method Room Air 08/26/22 22:50 BMI result Body Mass Index 29.0 Appearance: Alert. Oriented X3. No acute distress. Neck: Normal inspection. Neck supple. CVS: Normal heart rate and rhythm. Pulses normal. Respiratory: No respiratory distress. Equal air entry bilateral, no wheezing/rales/rhonchi Abdomen: Soft and nontender. Bowel sounds are present, Skin: Skin warm and dry. Normal skin color. Normal skin turgor. Extremities: Trace lower extremity edema. No calf tenderness Neuro: Oriented X 3. No motor deficit. Medical Decision Making Medical Decision Making MDM Narrative: Patient with ankle edema noncardiogenic labs are stable likely from nifedipine or prolonged standing discharge patient home advised to follow with PCP Lab Data MDM Lab Attestation statement: I reviewed the patient's lab results. 08/26/22 22:25 08/26/22 22:25 Labs: Lab Results 08/26/22 08/26/22 08/26/22 Range/Units 22:25 22:25 22:25 WBC 8.0 (4.8-10.8) X10*3/uL RBC 4.21 (4.20-5.50) X10*6/uL Hgb 12.1 (12.0-16.0) g/dl Hct 37.1 (37.0-47.0) % MCV 88.1 (80.0-98.0) fL MCH 28.7 (27.0-33.0) pg MCHC 32.6 (31.0-35.0) g/dl RDW 12.4 (11.0-16.0) % Plt Count 236 (160-400) X10*3/uL MPV 11.3 (9.4-12.3) fL Immature Gran % (Auto) 0.8 H (0.0-0.4) % Neut % (Auto) 65.1 (45-73) % Lymph % (Auto) 25.3 (20-40) % [place] % (Auto) 7.0 (2-11) % Eos % (Auto) 1.4 (0-4) % Baso % (Auto) 0.4 (0-2) % Lymph # (Auto) 2.0 (1.2-4.9) X10*3/uL [place] # (Auto) 0.6 (0.1-1.2) X10*3/uL Eos # (Auto) 0.1 (0.0-0.4) X10*3/uL Baso # (Auto) 0.0 (0.0-0.2) X10*3/uL Abs Immat Gran (auto) 0.06 H (0.00-0.03) X10*3/uL Absolute Neuts (auto) 5.2 (2.0-8.3) x10*3/uL Absolute Nucleated RBC 0.000 (0.0-0.012) X10*3/uL Nucleated RBC % (auto) 0.0 (0.0-0.2) /100WBC Sodium 143 (135-145) mmol/L Potassium 3.6 (3.3-5.1) mmol/L Chloride 104 (96-108) mmol/L Carbon Dioxide 26 (22-29) mmol/L Anion Gap 17 (12-20) BUN 14 (9-16) mg/dL Creatinine 0.90 (0.5-1.4) mg/dL Estim Creat Clear Calc 93.1 Estimated GFR > 60 Random Glucose 117 H (60-115) mg/dL Calcium 9.9 D (8.4-10.2) mg/dL Troponin I High Sens < 2.7 (<3.5-17.0) ng/L B-Natriuretic Peptide (<100) pg/mL 08/26/22 Range/Units 22:25 WBC (4.8-10.8) X10*3/uL RBC (4.20-5.50) X10*6/uL Hgb (12.0-16.0) g/dl Hct (37.0-47.0) % MCV (80.0-98.0) fL MCH (27.0-33.0) pg MCHC (31.0-35.0) g/dl RDW (11.0-16.0) % Plt Count (160-400) X10*3/uL MPV (9.4-12.3) fL Immature Gran % (Auto) (0.0-0.4) % Neut % (Auto) (45-73) % Lymph % (Auto) (20-40) % [place] % (Auto) (2-11) % Eos % (Auto) (0-4) % Baso % (Auto) (0-2) % Lymph # (Auto) (1.2-4.9) X10*3/uL [place] # (Auto) (0.1-1.2) X10*3/uL Eos # (Auto) (0.0-0.4) X10*3/uL Baso # (Auto) (0.0-0.2) X10*3/uL Abs Immat Gran (auto) (0.00-0.03) X10*3/uL Absolute Neuts (auto) (2.0-8.3) x10*3/uL Absolute Nucleated RBC (0.0-0.012) X10*3/uL Nucleated RBC % (auto) (0.0-0.2) /100WBC Sodium (135-145) mmol/L Potassium (3.3-5.1) mmol/L Chloride (96-108) mmol/L Carbon Dioxide (22-29) mmol/L Anion Gap (12-20) BUN (9-16) mg/dL Creatinine (0.5-1.4) mg/dL Estim Creat Clear Calc Estimated GFR Random Glucose (60-115) mg/dL Calcium (8.4-10.2) mg/dL Troponin I High Sens (<3.5-17.0) ng/L B-Natriuretic Peptide 19 (<100) pg/mL Discharge Plan Discharge Clinical Impression: Dependent edema Patient Disposition: Home, Self-Care Instructions: Leg Edema (ED) Additional Instructions: Keep your legs elevated Don't stand for long hours Follow-up with your PCP as it is possibility your medication nifedipine causing the leg edema if so may need to change to a different medication Prescriptions: No Action sulindac 200 mg tablet 200 mg PO BID Qty: 60 0RF ibuprofen 600 mg tablet 600 mg PO Q6H PRN (Reason: fever or pain) Qty: 20 0RF tramadol 50 mg tablet 50 mg PO Q6H PRN (Reason: pain) Qty: 8 0RF levofloxacin 500 mg tablet 500 mg PO DAILY Qty: 9 0RF ciprofloxacin-dexamethasone [Ciprodex] 0.3-0.1 % drops,suspension 4 drp otic (ears) BID 7 Days Qty: 7.5 0RF ofloxacin 0.3 % drops 10 drp otic (ears) DAILY 7 Days Qty: 5 0RF acetaminophen [Tylenol Extra Strength] 500 mg tablet 1,000 mg PO QID PRN (Reason: fever or pain) Qty: 14 0RF amoxicillin-pot clavulanate 875-125 mg tablet 1 tab PO BID 10 Days Qty: 20 0RF oxycodone-acetaminophen [Percocet] 5-325 mg tablet 1 tab PO Q6H PRN (Reason: pain) Qty: 10 0RF Rx Instructions: Partial Fill upon patient request. cyclobenzaprine 10 mg tablet 10 mg PO Q8H Qty: 14 0RF naproxen 500 mg tablet 500 mg PO BID Qty: 20 0RF cyclobenzaprine 10 mg tablet 10 mg PO TID PRN (Reason: muscle spasm) Qty: 10 0RF valacyclovir [Valtrex] 500 mg tablet 500 mg PO BID 42 Days Qty: 84 0RF Rx Instructions: Start 1 tablet twice a day at 36 weeks of gestation Interventions: ED Discharge Assessment Last Done: 08/26/22 23:58 Discharge Date/Time: 08/26/22 23:59
== END 2022-08-26 23:59 | disposition home or self-care (01) ==
PROVIDERS: Emergency Provider Internal Medicine; PCP Internal Medicine
DX: R07.89 Other chest pain (principal); R60.0 Localized edema; R06.02 Shortness of breath; Z79.899 Other long term (current) drug therapy
CPT/HCPCS: 36415; 80048; 83880; 84484; 85025; 93005; 99283; 99284

== ENCOUNTER 2022-09-22 23:01 | Emergency (ER) | payer OTHER, SELFPAY ==
[2022-09-22 23:21] VITALS: BP 135/87; PULSE 72; RESP 18; TEMP 36.6; O2SAT 98; BMI 32.9
--- NOTE | 2022-09-22 23:50 | ED.DENTAL ---
HPI - Dental/Oral General Chief complaint: Dental/Oral Stated complaint: tooth pain Time Seen by Provider: 09/22/22 23:50 Source: patient Mode of arrival: ambulatory Limitations: no limitations History of Present Illness HPI Narrative: 37 year old male presents w/ right upper molar pain for few weeks, worsening, patient reports recent root canal about a month ago, and she states she is in severe 10/10 pain, worse with eating, patient reports no [id number] medications are making it better. Patient tells me she is primarily here for pain control. She is followed by dentist. No fevers, chills, changes in voice, trouble controlling secretions, chest pain, shortness of breath, nausea, vomiting, abdominal pain, headache, vision changes, dizziness or weakness. Related Data Previous Rx's Medication Instructions Recorded valacyclovir 500 mg tablet 500 mg PO BID 6 weeks #84 tabs 10/29/21 (Valtrex) ibuprofen 600 mg tablet 600 mg PO Q6H PRN fever or pain 01/15/22 #20 tabs ciprofloxacin 0.3 %-dexamethasone 4 drp otic (ears) BID 7 days #7.5 03/14/22 0.1 % ear drops,suspension mL (Ciprodex) levofloxacin 500 mg tablet 500 mg PO DAILY #9 tabs 03/14/22 ofloxacin 0.3 % ear drops 10 drp otic (ears) DAILY 7 days #5 03/14/22 mL tramadol 50 mg tablet 50 mg PO Q6H PRN pain #8 tabs 03/14/22 acetaminophen 500 mg tablet 1,000 mg PO QID PRN fever or pain 03/18/22 (Tylenol Extra Strength) #14 tabs amoxicillin 875 mg-potassium 1 tab PO BID 10 days #20 tabs 06/06/22 clavulanate 125 mg tablet cyclobenzaprine 10 mg tablet 10 mg PO Q8H #14 tabs 06/06/22 oxycodone-acetaminophen 5 mg-325 1 tab PO Q6H PRN pain #10 tabs 06/06/22 mg tablet (Percocet) cyclobenzaprine 10 mg tablet 10 mg PO TID PRN muscle spasm #10 07/04/22 tabs naproxen 500 mg tablet 500 mg PO BID #20 tabs 07/04/22 sulindac 200 mg tablet 200 mg PO BID #60 tabs 07/07/22 amoxicillin 875 mg-potassium 1 tab PO BID 10 days #20 tabs 09/22/22 clavulanate 125 mg tablet ketorolac 10 mg tablet 10 mg PO TID PRN pain 5 days #15 09/22/22 tabs Allergies Allergy/AdvReac Type Severity Reaction Status Date / Time No Known Allergies Allergy Verified 09/22/22 23:24 [No Known Allergies*] Review of Systems Review of Systems: Constitutional : No Fever, No Chills ENT/Mouth : No swallowing difficulty, no change in voice, positive dental pain, No jaw pain, No facial swelling Eyes: No Eye Pain, No Swelling Cardiovascular : No Chest Pain, No SOB Respiratory : No Cough, No Sputum Gastrointestinal : No Nausea, No Vomiting, No Diarrhea Genitourinary : No Dysuria Musculoskeletal : No Myalgias Skin : No rash Neuro : No Weakness, No Numbness, No Headache Yes all other systems are reviewed and are negative [facility] Past Medical History Attestation statement: The following information was validated with the patient. Source: old records reviewed and nursing notes reviewed Medical History No known health problems Surgical History No pertinent past surgical history Family History Family History Mother HTN (hypertension) Father Diabetes 1.5, managed as type 1 Maternal Grandmother Colon cancer Breast cancer Social History Social History Household Members: Children Housing: Condominium Alcohol intake: never Patient Tobacco Use Status: Never used Tobacco e-Cigarette/Vaping Use: Never Used Second Hand Smoke Exposure: No Substance Use Type: Marijuana Special nimco needs: No Agree to transfusion: Yes service: No Current occupational status: employed Gender identity: Female Cognitive needs: No Hearing needs: No Vision needs: No Physical Exam Vital Signs: Vital Signs: Last Vital Signs Temp 97.9 F 09/22/22 23:21 Pulse 72 09/22/22 23:21 Resp 18 09/22/22 23:21 BP 135/87 09/22/22 23:21 Pulse Ox 98 09/22/22 23:21 O2 Del Method Room Air 09/22/22 23:21 BMI result Body Mass Index 32.9 vss Appearance: Alert.? Oriented X3.? No acute distress.? Speaking in full sentences controlling secretions well. Head: Normocephalic, atraumatic, no step-offs or deformities Eyes: Pupils equal, round and reactive to light.? ENT: Pharynx normal.? No trismus. Tenderness to palpation to right upper molar. No signs of abscess. Uvula midline. Controlling secretions well. Neck: Normal inspection.? Neck supple.? CVS: Normal heart rate and rhythm.? Pulses normal.? Respiratory: No respiratory distress.? Breath sounds normal.? Abdomen: Soft and nontender.? Skin: Skin warm and dry.? Normal skin color.? Normal skin turgor.? Extremities: No lower extremity edema.? No calf ttp. 5/5 strength to bilateral upper and lower extremities Neuro: Oriented X 3.? No motor deficit.? No sensory deficit. CN 2-12 intact HEENT: Teeth image: 1. TTP poor dentiion caries Medical Decision Making Medical Decision Making MDM Narrative: 37-year-old female presents with right upper molar pain, recently had a root canal, needs something for pain control. Denies fevers and chills. Physical exam with poor dentition, tenderness to palpation overlying right upper molar. No changes in voice. No signs of abscess. Likely nerve exposed root, dental caries, poor dentition, possible fracture of tooth. Unlikely dental abscess, no signs of airway compromise. Plan discharge from triage with antibiotics, Toradol. Will have her follow up with dentist. Educated patient on diagnosis and treatment plan, answered all question, patient verbalizes understanding. At this time patient will be discharged home, advised to return with new or worsening symptoms. Educated on worrisome signs and symptoms and when to return. At this time I feel comfortable discharge home. Differential Diagnosis Differential Diagnoses: The differential diagnosis associated with the presentation includes Likely nerve exposed root, dental caries, poor dentition, possible fracture of tooth. Unlikely dental abscess, no signs of airway compromise. Admission/Observation Consideration of admission/observation: Escalation of care including admission/observation considered Not indicated Tests considered The following testing was considered but not selected: No signs of abscess on exam. No need for imaging at this time. Prescription Management I considered prescription management with: Antibiotic Core Measures AMI core measures followed: Yes Measure exclusions: not indicated Critical Care Time Critical Care Time Critical Care Time: No Discharge Plan Discharge Clinical Impression: Pain, dental Patient Disposition: Home, Self-Care Instructions: Toothache (ED) Additional Instructions: Take your medications as prescribed. If you were prescribed antibiotics today, it is important that you take your medication to their entirety, do not skip any doses, do not finish them early. Follow-up with your primary care provider this week. Follow-up with your dentist this week. Return to the emergency department with new or worsening symptoms. Such as fevers, chills, chest pain, shortness of breath, nausea, vomiting, dizziness, headache, vision changes, lethargy, drooling, changes in voice, difficulty opening your mouth In case of emergency call 911 Toradol has been sent to your pharmacy, you tolerated this well in the department. Please take this as prescribed do not take this with ibuprofen, or other NSAIDs, do not mix this with alcohol. Side effects of this medication including increased risk for bleeding and possible kidney injury. Prescriptions: New ketorolac 10 mg tablet 10 mg PO TID PRN (Reason: pain) 5 Days Qty: 15 0RF amoxicillin-pot clavulanate 875-125 mg tablet 1 tab PO BID 10 Days Qty: 20 0RF No Action sulindac 200 mg tablet 200 mg PO BID Qty: 60 0RF ibuprofen 600 mg tablet 600 mg PO Q6H PRN (Reason: fever or pain) Qty: 20 0RF tramadol 50 mg tablet 50 mg PO Q6H PRN (Reason: pain) Qty: 8 0RF levofloxacin 500 mg tablet 500 mg PO DAILY Qty: 9 0RF ciprofloxacin-dexamethasone [Ciprodex] 0.3-0.1 % drops,suspension 4 drp otic (ears) BID 7 Days Qty: 7.5 0RF ofloxacin 0.3 % drops 10 drp otic (ears) DAILY 7 Days Qty: 5 0RF acetaminophen [Tylenol Extra Strength] 500 mg tablet 1,000 mg PO QID PRN (Reason: fever or pain) Qty: 14 0RF amoxicillin-pot clavulanate 875-125 mg tablet 1 tab PO BID 10 Days Qty: 20 0RF oxycodone-acetaminophen [Percocet] 5-325 mg tablet 1 tab PO Q6H PRN (Reason: pain) Qty: 10 0RF Rx Instructions: Partial Fill upon patient request. cyclobenzaprine 10 mg tablet 10 mg PO Q8H Qty: 14 0RF naproxen 500 mg tablet 500 mg PO BID Qty: 20 0RF cyclobenzaprine 10 mg tablet 10 mg PO TID PRN (Reason: muscle spasm) Qty: 10 0RF valacyclovir [Valtrex] 500 mg tablet 500 mg PO BID 42 Days Qty: 84 0RF Rx Instructions: Start 1 tablet twice a day at 36 weeks of gestation Referrals: Physician,Unknown J [Primary Care Provider] - 2 days Stand Alone Forms: Work/School Release
[2022-09-23] MEDS: Ketorolac Tromethamine 15 MG/ML VIAL 30 MG IM (00:30)
== END 2022-09-23 00:37 | disposition home or self-care (01) ==
PROVIDERS: Emergency Provider Emergency Medicine Emergency Medical Services
DX: K08.89 Other specified disorders of teeth and supporting structures (principal); Z79.899 Other long term (current) drug therapy
CPT/HCPCS: 96372; 99283; 99284; J1885

== ENCOUNTER 2022-11-09 07:55 | Emergency (ER) | payer OTHER, SELFPAY ==
--- NOTE | ~2022-11-09 | XR_ITS ---
EXAMINATION: XR CHEST CLINICAL INFORMATION: Chest wall pain. COMPARISON: 06/06/2022 chest radiographs. TECHNIQUE: 2 views of the chest were obtained. FINDINGS: No significant abnormality is noted involving the heart, lungs, mediastinum, bony thorax or soft tissues. XR/XR chest 2V IMPRESSION: No acute cardiopulmonary process.
[2022-11-09 07:58] VITALS: BP 149/98; PULSE 82; RESP 16; TEMP 36.8; O2SAT 98; BMI 33.1
--- NOTE | 2022-11-09 08:04 | ECG_ITS ---
Test Reason : chest pain Blood Pressure : / mmHG Vent. Rate : 071 BPM Atrial Rate : 071 BPM P-R Int : 146 ms QRS Dur : 078 ms QT Int : 384 ms P-R-T Axes : 029 027 017 degrees QTc Int : 417 ms Normal sinus rhythm Septal infarct (cited on or before 06-JUN-2022) Abnormal ECG When compared with ECG of 26-AUG-2022 22:16, Questionable change in initial forces of Septal leads T wave amplitude has increased in Anterior leads Referred By: Generic ED Physician Electronically Signed By:ONDINA CALLE
--- NOTE | 2022-11-09 08:43 | ED.CHESTPAIN ---
HPI - Chest Pain General Chief Complaint: Chest Pain Stated Complaint: Chest pain/Back pain Time Seen by Provider: 11/09/22 08:16 Source: patient Mode of arrival: ambulatory History of Present Illness HPI narrative: 37-year-old female without known history asthma presents as an everyday smoker and states that she was ill approximately 2-3 weeks ago but is had some residual anterior chest wall discomfort and says that she used her mother's inhaler and had some relief. She denies any fevers or chills or any GI or symptoms. Related Data Previous Rx's Medication Instructions Recorded valacyclovir 500 mg tablet 500 mg PO BID 6 weeks #84 tabs 10/29/21 (Valtrex) ibuprofen 600 mg tablet 600 mg PO Q6H PRN fever or pain 01/15/22 #20 tabs ciprofloxacin 0.3 %-dexamethasone 4 drp otic (ears) BID 7 days #7.5 03/14/22 0.1 % ear drops,suspension mL (Ciprodex) levofloxacin 500 mg tablet 500 mg PO DAILY #9 tabs 03/14/22 ofloxacin 0.3 % ear drops 10 drp otic (ears) DAILY 7 days #5 03/14/22 mL tramadol 50 mg tablet 50 mg PO Q6H PRN pain #8 tabs 03/14/22 acetaminophen 500 mg tablet 1,000 mg PO QID PRN fever or pain 03/18/22 (Tylenol Extra Strength) #14 tabs amoxicillin 875 mg-potassium 1 tab PO BID 10 days #20 tabs 06/06/22 clavulanate 125 mg tablet cyclobenzaprine 10 mg tablet 10 mg PO Q8H #14 tabs 06/06/22 oxycodone-acetaminophen 5 mg-325 1 tab PO Q6H PRN pain #10 tabs 06/06/22 mg tablet (Percocet) cyclobenzaprine 10 mg tablet 10 mg PO TID PRN muscle spasm #10 07/04/22 tabs naproxen 500 mg tablet 500 mg PO BID #20 tabs 07/04/22 sulindac 200 mg tablet 200 mg PO BID #60 tabs 07/07/22 amoxicillin 875 mg-potassium 1 tab PO BID 10 days #20 tabs 09/22/22 clavulanate 125 mg tablet ketorolac 10 mg tablet 10 mg PO TID PRN pain 5 days #15 09/22/22 tabs Allergies Allergy/AdvReac Type Severity Reaction Status Date / Time No Known Allergies Allergy Verified 09/22/22 23:24 [No Known Allergies*] Review of Systems Review of Systems: Pertinent positives and negatives as stated in [facility] Past Medical History Source: nursing notes reviewed Medical History No known health problems Surgical History No pertinent past surgical history Family History Family History Mother HTN (hypertension) Father Diabetes 1.5, managed as type 1 Maternal Grandmother Colon cancer Breast cancer Social History Social History Household Members: Children Housing: Condominium Alcohol intake: never Patient Tobacco Use Status: Never used Tobacco e-Cigarette/Vaping Use: Never Used Second Hand Smoke Exposure: No Substance Use Type: Marijuana Special nimco needs: No Agree to transfusion: Yes Advance Directives: No Advance Directives Information Provided: No service: No Current occupational status: employed Gender identity: Female Cognitive needs: No Hearing needs: No Vision needs: No Physical Exam Vital Signs: Vital Signs: Last Vital Signs Temp 97.9 F 11/09/22 09:31 Pulse 80 11/09/22 09:31 Resp 16 11/09/22 09:31 BP 147/94 H 11/09/22 09:31 Pulse Ox 97 11/09/22 09:31 O2 Del Method Room Air 11/09/22 09:31 BMI result Body Mass Index 33.1 VITAL SIGNS: Reviewed. GENERAL: Well developed, well nourished, in no acute distress. HEAD: Normocephalic/atraumatic EYES: PERRLA, EOMI EARS: Ext canals without abnormality, TMs non-bulging and non-erythematous NOSE: Nares patent bilateral OROPHARYNX: no oral lesions noted, posterior pharynx clear and non-erythematous without noted tonsillar enlargement/erythema/exudates NECK: Supple, no adenopathy LUNGS: Normal breath sounds. No adventitious sounds or accessory muscle use. SpO2<98> CARDIOVASCULAR: Regular rate and rhythm without noted murmurs ABDOMEN: Soft, non-tender, non-distended with bowel sounds. MUSCULOSKELETAL: No tenderness, deformities, or effusions noted on gross inspection. EXTREMITIES: No cyanosis, clubbing or edema. SKIN: Inspection of the skin reveals no rashes NEUROLOGIC: Alert and oriented x 4. Strength and sensation to light touch were grossly intact x 4. Medical Decision Making Medical Decision Making [facility] Narrative: 37-year-old female with history and clinical presentation, DDX: Costochondritis, chest wall discomfort due to recent coughing illness. Patient remains afebrile, I have reviewed the EKG which does not show any evidence of underlying cardiac etiology and history is inconsistent with ACS, chest x-ray does not demonstrate infiltrate and otherwise my interpretation is in agreement with radiology's impression. COVID-19 testing is negative and patient received combination analgesics and on re-evaluation is feeling somewhat improved. She is encouraged to follow-up with her primary care doctor, Dr. Art, for further evaluation but at this time I have no clinical suspicion that this is asthma related and instead have instructed the patient on smoking cessation. Differential Diagnosis Differential Diagnoses: The differential diagnosis associated with the presentation includes Please see the discussion above Admission/Observation Consideration of admission/observation: Escalation of care including admission/observation considered Please see the discussion above Lab Data [facility] Lab Attestation statement: I reviewed the patient's lab results. Please see the discussion above Labs: Lab Results 11/09/22 Range/Units 08:50 COVID-19 ([facility]) Negative (Negative) COVID-19 Clin Com See Note Independent Interpretation I performed an independent interpretation of an: EKG Interpretation: Normal sinus rhythm, HR-71, no STEMI, UT/QRS/QTC is within normal limits. No acute changes when compared to 08/26/2022 Radiology Impression Radiologist Impression: Please see the discussion above External Record Review External record reviewed: Outpatient record, Prior outpatient labs and Prior outpatient radiology Discharge Plan Discharge Clinical Impression: Atypical chest pain, Chest wall pain, Costochondritis, Smoking Patient Disposition: Home, Self-Care Instructions: Costochondritis (ED), Chest Wall Pain (ED), How to Stop Smoking (ED) Additional Instructions: 1. Resume all home medications as prescribed. 2. For your current condition head is recommended that you take [id number] Tylenol/ibuprofen as needed for chest wall pain. Continue to use [id number] medication for cough control and highly recommend smoking cessation. 3. Please follow-up with your primary care doctor for further evaluation and discussion regarding smoking cessation. Return to the ER for any worsening symptoms. Prescriptions: No Action sulindac 200 mg tablet 200 mg PO BID Qty: 60 0RF ibuprofen 600 mg tablet 600 mg PO Q6H PRN (Reason: fever or pain) Qty: 20 0RF tramadol 50 mg tablet 50 mg PO Q6H PRN (Reason: pain) Qty: 8 0RF levofloxacin 500 mg tablet 500 mg PO DAILY Qty: 9 0RF ciprofloxacin-dexamethasone [Ciprodex] 0.3-0.1 % drops,suspension 4 drp otic (ears) BID 7 Days Qty: 7.5 0RF ofloxacin 0.3 % drops 10 drp otic (ears) DAILY 7 Days Qty: 5 0RF acetaminophen [Tylenol Extra Strength] 500 mg tablet 1,000 mg PO QID PRN (Reason: fever or pain) Qty: 14 0RF amoxicillin-pot clavulanate 875-125 mg tablet 1 tab PO BID 10 Days Qty: 20 0RF oxycodone-acetaminophen [Percocet] 5-325 mg tablet 1 tab PO Q6H PRN (Reason: pain) Qty: 10 0RF Rx Instructions: Partial Fill upon patient request. cyclobenzaprine 10 mg tablet 10 mg PO Q8H Qty: 14 0RF ketorolac 10 mg tablet 10 mg PO TID PRN (Reason: pain) 5 Days Qty: 15 0RF amoxicillin-pot clavulanate 875-125 mg tablet 1 tab PO BID 10 Days Qty: 20 0RF naproxen 500 mg tablet 500 mg PO BID Qty: 20 0RF cyclobenzaprine 10 mg tablet 10 mg PO TID PRN (Reason: muscle spasm) Qty: 10 0RF valacyclovir [Valtrex] 500 mg tablet 500 mg PO BID 42 Days Qty: 84 0RF Rx Instructions: Start 1 tablet twice a day at 36 weeks of gestation Referrals: Armand Art MD [Primary Care Provider] -
[2022-11-09 09:15] LABS: COVID-19 Test Negative (Negative); IDNOW Serial# BCCEAD1C
[2022-11-09 09:31] VITALS: BP 147/94; PULSE 80; RESP 16; TEMP 36.6; O2SAT 97
[2022-11-09] MEDS: Ibuprofen 400 MG TABLET PO (09:50)
[2022-11-09] MEDS: Acetaminophen 325 MG TABLET 975 MG PO (09:50)
== END 2022-11-09 09:55 | disposition home or self-care (01) ==
PROVIDERS: Emergency Provider Student in an Organized Health Care Education/Training Program; PCP Internal Medicine
DX: R07.89 Other chest pain (principal); M54.50 Low back pain, unspecified; M94.0 Chondrocostal junction syndrome [Tietze]; F17.200 Nicotine dependence, unspecified, uncomplicated; Z71.6 Tobacco abuse counseling; Z20.822 Contact with and (suspected) exposure to COVID-19; Z20.828 Contact with and (suspected) exposure to other viral communicable diseases
CPT/HCPCS: 71046; 87635; 93005; 99283; 99285

== ENCOUNTER 2023-04-01 10:07 | Emergency (ER) | payer OTHER, SELFPAY ==
--- NOTE | ~2023-04-01 | CT_ITS ---
EXAMINATION: CT ABDOMEN AND PELVIS WITHOUT CONTRAST CLINICAL INFORMATION: Left flank pain. COMPARISON: CT abdomen and pelvis dated 12/16/2020. TECHNIQUE: Multidetector volumetric imaging was performed from the superior aspect of the liver through the pubic symphysis. Sagittal and coronal reformatted images were obtained on the technologist's workstation. This CT examination was performed using dose optimization techniques as appropriate, variously including the following: *Automated exposure control *Adjustment of mA and/or kV according to patient size (this includes techniques or standardized protocols for targeted exams where dose is matched to indication/reason for exam; i.e. extremities or head) *Use of iterative reconstruction technique DLP: 734 mGy-cm FINDINGS: LUNG BASES: The visualized lung bases are unremarkable. LIVER, GALLBLADDER, AND BILIARY TREE: The liver is normal in size, shape and generally diminished in attenuation. No focal hepatic lesion or biliary ductal dilatation is present. The gallbladder is unremarkable with no evidence of radiopaque gallstones, gallbladder wall thickening, or obvious pericholecystic inflammatory changes. PANCREAS: Unremarkable. SPLEEN: Unremarkable. ADRENAL GLANDS: Unremarkable. KIDNEYS AND URETERS: The kidneys are normal in size, shape, and attenuation. No hydronephrosis, hydroureter, or calculi seen. No perinephric stranding. BLADDER: Unremarkable. GASTROINTESTINAL TRACT: The small and large bowel are unremarkable. The appendix is unremarkable. ABDOMINAL WALL: There is a very small fat-containing umbilical hernia. LYMPH NODES: Normal. VASCULAR: Unremarkable. PELVIC VISCERA: The uterus and adnexa are unremarkable. OSSEOUS STRUCTURES: Unremarkable. CT/CT abdomen pelvis wo IV con IMPRESSION: 1. There is hepatic steatosis. 2. A small fat-containing umbilical hernia seen. 3. Otherwise, unremarkable examination. No urinary mass, calculus or obstruction is seen bilaterally. Fleischner guidelines were followed.
[2023-04-01 10:23] VITALS: BP 141/96; PULSE 79; RESP 16; TEMP 36.6; O2SAT 98; BMI 32.0
[2023-04-01 14:04] LABS: MANUAL DIFF FLAG NO
[2023-04-01 14:06] LABS: Basophils Percent Auto 0.3 % (0-2); Eosinophils Absolute Auto 0.1 X10*3/uL (0.0-0.4); Eosinophils Percent Auto 0.8 % (0-4); Hematocrit 42.3 % (37.0-47.0); Imm Gran Abs Auto 0.03 X10*3/uL (0.00-0.03); Imm Gran Pct Auto 0.3 % (0.0-0.4); Lymphocytes Absolute Auto 2.2 X10*3/uL (1.2-4.9); Lymphocytes Percent Auto 25.2 % (20-40); Mean Corpuscular HGB Conc 33.1 g/dl (31.0-35.0); Mean Corpuscular Hemoglobin 29.2 pg (27.0-33.0); Mean Corpuscular Volume 88.3 fL (80.0-98.0); Mean Platelet Volume 11.4 fL (9.4-12.3); Monocytes Absolute Auto 0.5 X10*3/uL (0.1-1.2); Monocytes Percent Auto 5.5 % (2-11); Neutrophils Percent Auto 67.9 % (45-73); Platelet Count 233 X10*3/uL (160-400); Red Blood Count 4.79 X10*6/uL (4.20-5.50); Red Cell Distribution Width 12.5 % (11.0-16.0); White Blood Count 8.9 X10*3/uL (4.8-10.8)
[2023-04-01 14:23] LABS: Alanine Aminotransferase 119 U/L (0-31); Albumin Level 4.6 g/dL (3.5-5.0); Alkaline Phosphatase 127 U/L (39-117); Anion Gap 12 (12-20); Aspartate Amino Transferase 73 U/L (5-31); Bilirubin Direct 0.2 mg/dL (0.0-0.5); Bilirubin Total 0.5 mg/dL (0.0-1.0); Blood Urea Nitrogen 9 mg/dL (9-16); Calcium 9.7 mg/dL (8.4-10.2); Carbon Dioxide 27 mmol/L (22-29); Chloride 104 mmol/L (96-108); Creatinine Clr Calc Pharmacy 112.9; Estimated Glomerular Filt Rate > 60; Glucose Random 118 mg/dL (60-115); Potassium 3.8 mmol/L (3.3-5.1); Sodium 139 mmol/L (135-145); Total Protein 8.1 g/dL (6.5-8.0)
[2023-04-01 18:01] VITALS: BP 148/91; PULSE 72; RESP 20; TEMP 35.9; O2SAT 99
[2023-04-01 18:34] VITALS: BP 146/82; PULSE 68; RESP 16; TEMP 36.8; O2SAT 98
--- NOTE | 2023-04-01 18:42 | ED.GENADULT ---
HPI - General Adult General Chief complaint: Abdominal Pain Stated complaint: Abd pain Time Seen by Provider: 04/01/23 18:07 Source: patient, RN notes reviewed and old records reviewed Mode of arrival: ambulatory Limitations: no limitations History of Present Illness HPI narrative: 37-year-old female presents for evaluation of left flank pain. She states that about a week ago she had left lower abdominal pain She is associated mild diarrhea. She also complains of ?not burning with urination, but I feel like I have the go all the time. ? She reports a history of kidney stones and states this feels similar Denies any fevers or chills She reports that she is not sexually active She reports her last menstrual cycle was March 14 of this year She rates her pain as 09/20 Related Data Previous Rx's Medication Instructions Recorded valacyclovir 500 mg tablet 500 mg PO BID 6 weeks #84 tabs 10/29/21 (Valtrex) ibuprofen 600 mg tablet 600 mg PO Q6H PRN fever or pain 01/15/22 #20 tabs ciprofloxacin 0.3 %-dexamethasone 4 drp otic (ears) BID 7 days #7.5 03/14/22 0.1 % ear drops,suspension mL (Ciprodex) levofloxacin 500 mg tablet 500 mg PO DAILY #9 tabs 03/14/22 ofloxacin 0.3 % ear drops 10 drp otic (ears) DAILY 7 days #5 03/14/22 mL tramadol 50 mg tablet 50 mg PO Q6H PRN pain #8 tabs 03/14/22 acetaminophen 500 mg tablet 1,000 mg (2 x 500 mg) PO QID PRN 03/18/22 (Tylenol Extra Strength) fever or pain #14 tabs amoxicillin 875 mg-potassium 1 tab PO BID 10 days #20 tabs 06/06/22 clavulanate 125 mg tablet cyclobenzaprine 10 mg tablet 10 mg PO Q8H #14 tabs 06/06/22 oxycodone-acetaminophen 5 mg-325 1 tab PO Q6H PRN pain #10 tabs 06/06/22 mg tablet (Percocet) cyclobenzaprine 10 mg tablet 10 mg PO TID PRN muscle spasm #10 07/04/22 tabs naproxen 500 mg tablet 500 mg PO BID #20 tabs 07/04/22 sulindac 200 mg tablet 200 mg PO BID #60 tabs 07/07/22 amoxicillin 875 mg-potassium 1 tab PO BID 10 days #20 tabs 09/22/22 clavulanate 125 mg tablet ketorolac 10 mg tablet 10 mg PO TID PRN pain 5 days #15 09/22/22 tabs Allergies Allergy/AdvReac Type Severity Reaction Status Date / Time No Known Allergies Allergy Verified 09/22/22 23:24 [No Known Allergies*] Review of Systems Constitutional: Constitutional: Denies chills and Denies fever(s) Eyes: Eyes: Denies blurry vision Cardiovascular: Cardiovascular: Denies chest pain and Denies dyspnea Respiratory: Respiratory: Denies cough and Denies dyspnea Gastrointestinal: Gastrointestinal: Reports abdominal pain, Reports diarrhea, Reports nausea and Denies vomiting Genitourinary: Genitourinary: Reports urinary hesitancy Musculoskeletal: Musculoskeletal: Reports back pain Integumentary/Breasts: Skin/Breast: Denies rash PMFSH Past Medical History Onset Date is defined in the Problem List Problems that require an onset date and time if occurred within 24 hrs of arrival to the ED Aortic Dissection and Rupture; Neurologic impairment; Cardiopulmonary Arrest; Endotracheal Intubation; Insertion or Replacement of Mechanical Circulatory Assist Device Medical History No known health problems Surgical History No pertinent past surgical history Family History Family History Mother HTN (hypertension) Father Diabetes 1.5, managed as type 1 Maternal Grandmother Colon cancer Breast cancer Social History Social History Household Members: Children Housing: Condominium Alcohol intake: never Patient Tobacco Use Status: Never used Tobacco e-Cigarette/Vaping Use: Never Used Second Hand Smoke Exposure: No Substance Use Type: Marijuana Special nimco needs: No Agree to transfusion: Yes Advance Directives: No Advance Directives Information Provided: No service: No Current occupational status: employed Gender identity: Female Cognitive needs: No Hearing needs: No Vision needs: No Physical Exam ED Vital Signs: Vital Signs - 24 hr 04/01/23 10:23 04/01/23 18:01 04/01/23 18:34 Temperature 97.8 F 96.6 F L 98.2 F Pulse Rate 79 72 68 Respiratory Rate 16 20 16 Blood Pressure 141/96 H 148/91 H 146/82 H Pulse Oximetry 98 99 98 Oxygen Delivery Method Room Air Room Air Room Air 04/01/23 20:42 Temperature 98.6 F Pulse Rate 76 Respiratory Rate 16 Blood Pressure 144/77 H Pulse Oximetry 99 Oxygen Delivery Method Room Air BMI result Body Mass Index 32.0 Const General: healthy appearing, comfortable, no acute distress, alert and awake Nutritional Appearance: well nourished Orientation/consciousness: patient oriented x3 HENMT Head: Yes normocephalic and Yes atraumatic Eyes Eyelids: Yes eyelids normal Conjunctivae: conjunctivae normal Sclerae: sclerae normal Corneas: corneas normal Pupils: Equal, round and reactive pupils present EOM: EOMs intact bilaterally Neck Neck: Yes full ROM Resp Effort & Inspection: normal respiratory effort, able to speak in complete sentences and not labored GI Inspection: No distended Palpation (GI): Soft to palpation, not firm, Tenderness to palpation present (GI) in the LLQ and suprapubicly; with no rebound tenderness, no guarding and not rigid General: Yes CVA tenderness (left) Back/Spine/Pelvis Back: CVA tenderness (left) Skin General skin exam: elasticity normal Neuro General: patient oriented x3 Cranial nerves: Yes Equal, round and reactive pupils present and Yes Bilaterally intact EOM present Cognition (Neuro): normal cognition Course Reevaluation(s) Reevaluation #1: Discussed patient's workup with her including negative urine sample, CT scan findings including fatty liver disease. She has no acute findings to describe her pain. The patient states that approximately around the onset of her pain she was ?helping my sister move a washer. Her pain may be related to muscular injury. Symptomatic care was encouraged. Patient denies alcohol use when discussing her fatty liver. Time: 21:05 Medications Administered Discontinued Medications Generic Name Dose Route Start Last Admin Trade Name Freq PRN Reason Stop Dose Admin Ketorolac Tromethamine 30 mg 04/01/23 18:56 04/01/23 19:15 Ketorolac Tromethamine 30 Mg/Ml Vial IM 04/01/23 18:57 30 mg ONCE ONE Administration Medical Decision Making Medical Decision Making MDM Narrative: This is a healthy 37-year-old female presenting for evaluation of lower abdominal pain, urinary symptoms and left flank pain. Most likely diagnosis is obstructive uropathy versus pyelonephritis. UA was sent. The patient's vital signs are stable, labs are reassuring, she has no evidence of renal failure. She has not septic. A CT scan of the abdomen pelvis was ordered. Differential Diagnosis Differential Diagnoses: The differential diagnosis associated with the presentation includes Obstructive uropathy Pyelonephritis UTI Muscle strain Lab Data MDM Lab Attestation statement: I reviewed the patient's lab results. No leukocytosis or anemia. No significant electrolyte abnormalities. The patient has a mild transaminitis of unclear etiology. No right upper abdominal pain to suggest biliary disease and her total bilirubin is 0.2. 04/01/23 14:00 04/01/23 14:00 Labs: Lab Results 04/01/23 04/01/23 Range/Units 14:00 18:38 WBC 8.9 (4.8-10.8) X10*3/uL RBC 4.79 (4.20-5.50) X10*6/uL Hgb 14.0 (12.0-16.0) g/dl Hct 42.3 (37.0-47.0) % MCV 88.3 (80.0-98.0) fL MCH 29.2 (27.0-33.0) pg MCHC 33.1 (31.0-35.0) g/dl RDW 12.5 (11.0-16.0) % Plt Count 233 (160-400) X10*3/uL MPV 11.4 (9.4-12.3) fL Immature Gran % (Auto) 0.3 (0.0-0.4) % Neut % (Auto) 67.9 (45-73) % Lymph % (Auto) 25.2 (20-40) % [place] % (Auto) 5.5 (2-11) % Eos % (Auto) 0.8 (0-4) % Baso % (Auto) 0.3 (0-2) % Lymph # (Auto) 2.2 (1.2-4.9) X10*3/uL [place] # (Auto) 0.5 (0.1-1.2) X10*3/uL Eos # (Auto) 0.1 (0.0-0.4) X10*3/uL Baso # (Auto) 0.0 (0.0-0.2) X10*3/uL Abs Immat Gran (auto) 0.03 (0.00-0.03) X10*3/uL Absolute Neuts (auto) 6.0 (2.0-8.3) x10*3/uL Absolute Nucleated RBC 0.000 (0.0-0.012) X10*3/uL Nucleated RBC % (auto) 0.0 (0.0-0.2) /100WBC Sodium 139 (135-145) mmol/L Potassium 3.8 (3.3-5.1) mmol/L Chloride 104 (96-108) mmol/L Carbon Dioxide 27 (22-29) mmol/L Anion Gap 12 (12-20) BUN 9 (9-16) mg/dL Creatinine 0.77 (0.5-1.4) mg/dL Estim Creat Clear Calc 112.9 Estimated GFR > 60 Random Glucose 118 H (60-115) mg/dL Calcium 9.7 (8.4-10.2) mg/dL Total Bilirubin 0.5 (0.0-1.0) mg/dL Direct Bilirubin 0.2 (0.0-0.5) mg/dL AST 73 H (5-31) U/L ALT 119 H (0-31) U/L Alkaline Phosphatase 127 H (39-117) U/L Total Protein 8.1 H (6.5-8.0) g/dL Albumin 4.6 (3.5-5.0) g/dL Urine Color Yellow Urine Appearance Cloudy Urine pH 6.5 (5.0-9.0) Ur Specific [place] 1.025 (1.005-1.025) Urine Protein Trace (Neg-Trace) mg/dL Urine Glucose (UA) Negative (Negative) mg/dL Urine Ketones 15 (Negative) mg/dL Urine Blood Negative (Negative) Urine Nitrite Negative (Negative) Ur Leukocyte Esterase Negative (Negative) Urine RBC 0-2 (0-2) /HPF Urine WBC 0-5 (0-5) /HPF Ur Squamous Epith Cells 3-5 (0-2) /HPF Urine Bacteria None Seen (None Seen) Hyaline Casts 0-2 (0-2) /LPF Urine Test NEGATIVE (NEGATIVE) Radiology Impression Discussion of test interpretation with radiology: I have reviewed the radiologist's reading. (Mild fatty liver, no acute findings) Discharge Plan Discharge Clinical Impression: Acute left flank pain, Fatty liver Patient Disposition: Home, Self-Care Instructions: Non-Alcoholic Fatty Liver Disease (ED) Additional Instructions: Your workup did not show any obvious cause of your flank pain. This may be related to a muscle strain Your urine sample did not show infection or blood Your blood work showed mild elevation of her liver enzymes Your CT scan showed a fatty liver These can be followed up by talking to your primary doctor Prescriptions: No Action sulindac 200 mg tablet 200 mg PO BID Qty: 60 0RF ibuprofen 600 mg tablet 600 mg PO Q6H PRN (Reason: fever or pain) Qty: 20 0RF tramadol 50 mg tablet 50 mg PO Q6H PRN (Reason: pain) Qty: 8 0RF levofloxacin 500 mg tablet 500 mg PO DAILY Qty: 9 0RF ciprofloxacin-dexamethasone [Ciprodex] 0.3-0.1 % drops,suspension 4 drp otic (ears) BID 7 Days Qty: 7.5 0RF ofloxacin 0.3 % drops 10 drp otic (ears) DAILY 7 Days Qty: 5 0RF acetaminophen [Tylenol Extra Strength] 500 mg tablet 1,000 mg PO QID PRN (Reason: fever or pain) Qty: 14 0RF amoxicillin-pot clavulanate 875-125 mg tablet 1 tab PO BID 10 Days Qty: 20 0RF oxycodone-acetaminophen [Percocet] 5-325 mg tablet 1 tab PO Q6H PRN (Reason: pain) Qty: 10 0RF Rx Instructions: Partial Fill upon patient request. cyclobenzaprine 10 mg tablet 10 mg PO Q8H Qty: 14 0RF ketorolac 10 mg tablet 10 mg PO TID PRN (Reason: pain) 5 Days Qty: 15 0RF amoxicillin-pot clavulanate 875-125 mg tablet 1 tab PO BID 10 Days Qty: 20 0RF naproxen 500 mg tablet 500 mg PO BID Qty: 20 0RF cyclobenzaprine 10 mg tablet 10 mg PO TID PRN (Reason: muscle spasm) Qty: 10 0RF valacyclovir [Valtrex] 500 mg tablet 500 mg PO BID 42 Days Qty: 84 0RF Rx Instructions: Start 1 tablet twice a day at 36 weeks of gestation
[2023-04-01 18:52] LABS: Appearance Urine Cloudy; Color Urine Yellow; Glucose Urine UA Negative (Negative); Leukocyte Esterase Urine Negative (Negative); Nitrite Urine Negative (Negative); PH 6.5 (5.0-9.0); Specific Gravity - Urine 1.025 (1.005-1.025); Urine Blood Negative (Negative); Urine Ketones 15 mg/dL (Negative); Urine Protein Trace mg/dL (Neg-Trace)
[2023-04-01 19:11] LABS: Bacteria Urine None Seen (None Seen); Hyaline Casts Urine 0-2 /LPF (0-2); RBC Urine 0-2 /HPF (0-2); WBC Urine 0-5 /HPF (0-5)
[2023-04-01 19:12] LABS: UPreg QC Valid YES; Urine Pregnancy NEGATIVE (NEGATIVE)
[2023-04-01] MEDS: Ketorolac Tromethamine 30 MG/ML VIAL IM (19:15)
[2023-04-01 20:42] VITALS: BP 144/77; PULSE 76; RESP 16; TEMP 37; O2SAT 99
--- NOTE | 2023-04-01 20:57 | PC.NURSE ---
Pt has been resting quietly. Sleeping on and off.
== END 2023-04-01 21:49 | disposition home or self-care (01) ==
PROVIDERS: Emergency Medicine; Physician Assistant; Emergency Provider Emergency Medicine Emergency Medical Services
DX: R10.9 Unspecified abdominal pain (principal); K76.0 Fatty (change of) liver, not elsewhere classified
CPT/HCPCS: 36415; 74176; 80048; 80076; 81001; 81025; 85025; 96372; 99284; J1885

== ENCOUNTER 2023-06-07 12:24 | Outpatient (AMB) | payer OTHER, SELFPAY ==
[2023-06-07 12:31] VITALS: BP 132/72; PULSE 89; O2SAT 100; BMI 32.0
--- NOTE | 2023-06-07 12:31 | A.OFFPC_ITS ---
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: No Light Cleaner: Not Required per policy Accompanied by: Self / Same As Patient Allergies No Known Allergies [No Known Allergies*] Allergy (Verified 06/07/23 12:31) Medication List - Last Reconciled 06/07/23 by Armand Art MD acetaminophen (Tylenol Extra Strength) 1,000 mg (2 x 500 mg) PO QID PRN ciprofloxacin-dexamethasone 0.3-0.1 % (Ciprodex) 4 drps otic (ears) BID 7 days cyclobenzaprine 10 mg PO Q8H levofloxacin 500 mg PO DAILY naproxen 500 mg PO BID ofloxacin 0.3% 10 drps otic (ears) DAILY 7 days oxycodone-acetaminophen 5-325 mg (Percocet) 1 tab PO Q6H PRN sulindac 200 mg PO BID tramadol 50 mg PO Q6H PRN Tobacco use date assessed: 06/07/23 Dental Screening Dental Screen Date: 06/07/23 Did you have a dental visit in the last 12 months?: Yes Did you have a dental problem in the last 6 months where you did not have access to dental care?: No Was dental information given to patient?: Patient has dentist HPI Annual Exam HPI Details healthy; chronic back pain PFSH Medical History No known health problems Surgical History No pertinent past surgical history Family History Mother HTN (hypertension) Father Diabetes 1.5, managed as type 1 Maternal Grandmother Colon cancer Breast cancer Social History Household Members: Children Housing: Condominium Alcohol intake: never Patient Tobacco Use Status: Never used Tobacco e-Cigarette/Vaping Use: Never Used Second Hand Smoke Exposure: No Substance Use Type: Marijuana Special nimco needs: No Agree to transfusion: Yes service: No Current occupational status: employed Gender identity: Female Cognitive needs: No Hearing needs: No Vision needs: No Female Reproductive History Menstrual Age of Menarche: 13 Questionnaire PHQ-9 Over the last 2 weeks, how often have you been bothered by any of the following problems? 1. Little interest or pleasure in doing things: not at all 2. Feeling down, depressed, or hopeless: not at all 3. Trouble falling or staying asleep, or sleeping too much: not at all 4. Feeling tired or having little energy: not at all 5. Poor appetite or overeating: not at all 6. Feeling bad about yourself - or that you are a failure or have let yourself or your family down: not at all 7. Trouble concentrating on things, such as reading the newspaper or watching television: not at all 8. Moving or speaking so slowly that other people could have noticed. Or the opposite - being so fidgety or restless that you have been moving around a lot more than usual: not at all 9. Thoughts that you would be better off or of hurting yourself in some way: not at all Total score: 0 Depression Screening Interpretation: Negative Depression Screening Done: Yes 71668 - PHQ-9 Billing: Yes Source: Developed by Drs. Sarmad Grande, Loren Hernandez, Kwame Neff and colleagues, with an educational pamela from [employer]. Thrive Questionnaire Date Thrive assessed: 06/07/23 I am a: Patient What is your living situation today?: I have a steady place to live Within the past 12 months, did the food you bought not last and you didn't have the money to get more?: Never true Within the past 12 months, did you worry whether your food would run out before you got money to buy more?: Never true Do you have trouble paying for medicines?: No Do you have trouble getting transportation to medical appointments?: No Do you have trouble paying your heating and electricity bill?: No Do you have trouble taking care of your child, family member or friend?: No Do you have trouble with day-to-day activities such as bathing, preparing meals, shopping, managing finances, etc.?: No Are you currently unemployed and looking for a job?: No Are you interested in more education?: No Please select the resources that you would like help with: None THRIVE Score: 0 AUDIT C Alcohol Use Questionnaire (AUDIT-C) 1. How often do you have a drink containing alcohol?: Never Total Score: 0 Score Reviewed/Action Taken: Yes MARCELINO-7 AMB Questionnaire MARCELINO-7 Date MARCELINO - 7 assessed: 06/07/23 Feeling nervous, anxious, or on edge: 1 = Several days Not being able to stop or control worryin = Not at all Worrying too much about different things: 1 = Several days Trouble relaxin = Not at all Being so restless that it is hard to sit still: 0 = Not at all Becoming easily annoyed or irritable: 0 = Not at all Feeling afraid as if something awful might happen: 0 = Not at all Total MARCELINO-7 score (0-4 normal; 5-9 mild; 10-14 moderate; 15-21 severe): 2 Source: Developed by Drs. Sarmad Grande, Loren Hernandez, Kwame Neff and colleagues, with an educational pamela from [employer]. Review of Systems Const Denies chills, Denies fatigue, Denies headache(s) and Denies weight loss Eyes Denies change in vision, Denies diplopia and Denies eye pain ENT Denies vertigo, Denies dizziness, Denies headache(s) and Denies nasal discharge Card Denies chest pain, Denies rapid heart rate and Denies dyspnea on exertion Resp Denies chest congestion, Denies cough, Denies pain with cough and Denies dyspnea on exertion GI Denies abdominal pain, Denies hematochezia and Denies change in bowel habits Musc Denies myalgias, Denies arthralgias and Denies joint swelling Skin/Breast Denies lesions and Denies unusual bruising Neuro Denies vertigo, Denies dizziness, Denies headache(s) and Denies focal weakness Endo Denies fatigue Physical exam (Primary Care) Vital Signs: Last Vital Signs Pulse 89 06/07/23 12:31 BP 132/72 06/07/23 12:31 Pulse Ox 100 06/07/23 12:31 Oxygen Delivery Method Room Air 06/07/23 12:31 BMI result Body Mass Index 32.0 Tobacco/Smoking Status: Tobacco use Status Tobacco use date assessed 06/07/23 06/07/23 12:32 Patient Tobacco Use Status Never used Tobacco 06/07/23 12:32 e-Cigarette/Vaping Use Never Used 06/07/23 12:32 PHQ-9: PHQ-9 Score PHQ-9: Total score 0 06/07/23 12:48 Depression Screening Interpretation: Negative Thrive Assessment: Date of Thrive Assessment Date Thrive assessed 06/07/23 06/07/23 12:32 Const General: cooperative, healthy appearing and no acute distress Orientation/consciousness: oriented to person, oriented to place and oriented to time HENMT Head: Yes normal to inspection, Yes normocephalic and Yes atraumatic Mouth: Normal oral and palatal mucosa present and tongue normal Throat: Yes posterior oropharynx normal and Yes uvula midline Eyes General: appearance normal, both eyes and all related structures Neck Neck: Yes normal visual inspection, Yes full ROM and Yes no lymphadenopathy Thyroid: Thyroid normal Carotids: normal carotid upstroke Chest Chest palpation & inspection: normal inspection of the chest Resp Effort & Inspection: normal respiratory effort and able to speak in complete sentences Auscultation: clear to auscultation bilaterally Cardio Jugular venous distension: no JVD Palpation: normal PMI Rate: regular rate Rhythm: regular rhythm Heart sounds: S1 normal heart sound present and S2 normal heart sound present GI Inspection: Yes normal to inspection Palpation (GI): Soft to palpation and No hepatosplenomegaly present Auscultation: normal bowel sounds General: Yes no CVA tenderness Back/Spine/Pelvis Back: no CVA tenderness Skin General skin exam: no rashes or lesions noted Neuro General: oriented to person, oriented to place and oriented to time Extrem General: Yes normal to inspection and Yes full ROM Assessment and Plan Assessment & Plan (1) Physical exam: Code(s): Z00.00 - Encounter for general adult medical examination without abnormal findings Plan: labs (2) Low back pain: Code(s): M54.50 - Low back pain, unspecified Plan: rx sent Orders: Orders Lipid Panel Today E78.5 - Hyperlipidemia, unspecified Complete Blood Count Auto Diff Today D64.9 - Anemia, unspecified Thyroid Stimulating Hormone Today E03.9 - Hypothyroidism, unspecified Comprehensive [place]. Panel Fast Today N28.9 - Disorder of kidney and ureter, unspecified MM tomosynthesis screen imp BI Today Z12.31 - Encounter for screening mammogram for malignant neoplasm of breast Medications: Refilled oxycodone-acetaminophen 5-325 mg (Percocet) Partial Fill upon patient request. 1 tab PO Q6H PRN 10 tabs 0RF pain tramadol 50 mg PO Q6H PRN 8 tabs 0RF pain naproxen 500 mg PO BID 20 tabs 0RF ofloxacin 0.3% 10 drps otic (ears) DAILY 5 mL 0RF 7 days Coding Level of Care Code Est Pt Prev Care 40-64y(51483) Diagnoses Physical exam Z00.00 Low back pain M54.50
== END 2023-06-07 13:12 | disposition home or self-care (01) ==
PROVIDERS: Visit Provider Internal Medicine
DX: Z00.00 Encounter for general adult medical examination without abnormal findings (principal); M54.50 Low back pain, unspecified
CPT/HCPCS: 99395

== ENCOUNTER 2023-06-08 11:01 | Outpatient (REF) | payer OTHER, SELFPAY ==
[2023-06-08 11:16] LABS: MANUAL DIFF FLAG NO
[2023-06-08 12:10] LABS: Basophils Percent Auto 0.6 % (0-2); Eosinophils Absolute Auto 0.1 X10*3/uL (0.0-0.4); Eosinophils Percent Auto 0.7 % (0-4); Hematocrit 40.9 % (37.0-47.0); Hemoglobin 13.6 g/dl (12.0-16.0); Imm Gran Abs Auto 0.01 X10*3/uL (0.00-0.03); Imm Gran Pct Auto 0.1 % (0.0-0.4); Lymphocytes Absolute Auto 1.8 X10*3/uL (1.2-4.9); Lymphocytes Percent Auto 26.3 % (20-40); Mean Corpuscular HGB Conc 33.3 g/dl (31.0-35.0); Mean Corpuscular Hemoglobin 29.4 pg (27.0-33.0); Mean Corpuscular Volume 88.3 fL (80.0-98.0); Mean Platelet Volume 12.3 fL (9.4-12.3); Monocytes Absolute Auto 0.5 X10*3/uL (0.1-1.2); Monocytes Percent Auto 6.5 % (2-11); Neutrophils Absolute Auto 4.6 x10*3/uL (2.0-8.3); Neutrophils Percent Auto 65.8 % (45-73); Platelet Count 235 X10*3/uL (160-400); Red Blood Count 4.63 X10*6/uL (4.20-5.50); Red Cell Distribution Width 12.3 % (11.0-16.0); White Blood Count 6.9 X10*3/uL (4.8-10.8)
[2023-06-08 13:06] LABS: Alanine Aminotransferase 108 U/L (0-31); Albumin Level 4.5 g/dL (3.5-5.0); Alkaline Phosphatase 125 U/L (39-117); Anion Gap 10 (12-20); Aspartate Amino Transferase 71 U/L (5-31); Bilirubin Total 0.6 mg/dL (0.0-1.0); Blood Urea Nitrogen 9 mg/dL (9-16); Calcium 9.3 mg/dL (8.4-10.2); Carbon Dioxide 26 mmol/L (22-29); Chloride 108 mmol/L (96-108); Cholesterol 184 mg/dL (<200); Estimated Glomerular Filt Rate > 60; Glucose Fasting 95 mg/dL (60-99); HDL Cholesterol 37 mg/dL (>40); LDL Cholesterol Calculated 127 mg/dL (<100); Potassium 3.4 mmol/L (3.3-5.1); Sodium 141 mmol/L (135-145); Total Protein 7.6 g/dL (6.5-8.0); Triglycerides 100 mg/dL (<150)
[2023-06-08 13:11] LABS: Thyroid Stimulating Hormone 0.82 uIU/mL (0.32-4.0)
== END 2023-06-08 11:02 | disposition home or self-care (01) ==
LOC: HO.LAB 11:01
PROVIDERS: Visit Provider Internal Medicine
DX: E78.5 Hyperlipidemia, unspecified (principal); E03.9 Hypothyroidism, unspecified; N28.9 Disorder of kidney and ureter, unspecified; D64.9 Anemia, unspecified
CPT/HCPCS: 36415; 80053; 80061; 84443; 85025

== ENCOUNTER 2023-08-22 04:27 | Emergency (ER) | payer OTHER, SELFPAY ==
--- NOTE | 2023-08-22 | ECG_ITS ---
Test Reason : CP Blood Pressure : / mmHG Vent. Rate : 084 BPM Atrial Rate : 084 BPM P-R Int : 146 ms QRS Dur : 068 ms QT Int : 366 ms P-R-T Axes : 021 030 013 degrees QTc Int : 432 ms Normal sinus rhythm Normal ECG When compared with ECG of 09-NOV-2022 08:10, Criteria for Septal infarct are no longer Present Referred By: Generic ED Physician Electronically Signed By:JERRY DENG
--- NOTE | ~2023-08-22 | XR_ITS ---
EXAMINATION: XR CHEST CLINICAL INFORMATION: Cough for one week COMPARISON: 11/09/2022 TECHNIQUE: 2 views of the chest were obtained. FINDINGS: No significant abnormality is noted involving the heart, lungs, mediastinum, bony thorax or soft tissues. XR/XR chest 2V IMPRESSION: Unremarkable examination.
[2023-08-22 04:36] VITALS: BP 148/101; PULSE 78; RESP 18; TEMP 36.8; O2SAT 98; BMI 29.0
[2023-08-22 05:54] LABS: Influenza A PCR NEGATIVE (Negative); Influenza B PCR NEGATIVE (Negative); Resp Syncy Virus RNA Qual PCR NEGATIVE (Negative); SARS COV2 PCR INHOUSE NEGATIVE (Negative)
--- NOTE | 2023-08-22 07:49 | ED.GENADULT ---
HPI - General Adult General Chief complaint: Upper Respiratory Symptoms Stated complaint: coughing, sore throat Time Seen by Provider: 08/22/23 07:16 Source: patient Mode of arrival: ambulatory Limitations: no limitations History of Present Illness ED Provider: Chitra Rai NP HPI narrative: Patient is a 37-year-old female presenting to the emergency department with complaint of cough, nasal congestion, and chest pain during coughing episodes since Tuesday. Reports feeling mildly short of breath. Denies any current chest pain at rest. Denies any calf pain or swelling. Not on OCPs. Denies fevers/chills/body aches. Both children sick with similar symptoms MD complaint: cough Onset (ago): day(s) Treatments prior to arrival: none Related Data Previous Rx's ?Medication ?Instructions ?Recorded ciprofloxacin 0.3 %-dexamethasone 4 drp otic (ears) BID 7 days #7.5 03/14/22 0.1 % ear drops,suspension mL (Ciprodex) levofloxacin 500 mg tablet 500 mg PO DAILY #9 tabs 03/14/22 acetaminophen 500 mg tablet 1,000 mg (2 x 500 mg) PO QID PRN 03/18/22 (Tylenol Extra Strength) fever or pain #14 tabs cyclobenzaprine 10 mg tablet 10 mg PO Q8H #14 tabs 06/06/22 sulindac 200 mg tablet 200 mg PO BID #60 tabs 07/07/22 naproxen 500 mg tablet 500 mg PO BID #20 tabs 06/07/23 ofloxacin 0.3 % ear drops 10 drp otic (ears) DAILY 7 days #5 06/07/23 mL oxycodone-acetaminophen 5 mg-325 1 tab PO Q6H PRN pain #10 tabs 06/07/23 mg tablet (Percocet) tramadol 50 mg tablet 50 mg PO Q6H PRN pain #8 tabs 06/07/23 Allergies Allergy/AdvReac Type Severity Reaction Status Date / Time No Known Allergies Allergy Verified 08/22/23 04:38 [No Known Allergies*] Review of Systems Review of Systems: As per HPI. Yes all other systems are reviewed and are negative Constitutional: Constitutional: Reports as per HPI [facility] Past Medical History Medical History No known health problems Surgical History No pertinent past surgical history Family History Family History Mother HTN (hypertension) Father Diabetes 1.5, managed as type 1 Maternal Grandmother Colon cancer Breast cancer Social History Social History Household Members: Children Housing: Condominium Alcohol intake: never Patient Tobacco Use Status: Never used Tobacco e-Cigarette/Vaping Use: Never Used Second Hand Smoke Exposure: No Substance Use Type: Marijuana Special nimco needs: No Agree to transfusion: Yes Advance Directives: No Advance Directives Information Provided: No service: No Current occupational status: employed Gender identity: Female Cognitive needs: No Hearing needs: No Vision needs: No Physical Exam ED Vital Signs: Vital Signs - 24 hr 08/22/23 04:36 Temperature 98.3 F Pulse Rate 78 Respiratory Rate 18 Blood Pressure 148/101 H Pulse Oximetry 98 Oxygen Delivery Method Room Air BMI result Body Mass Index 29.0 Vital signs have been reviewed and appear to be correct. Blood pressure elevated. Heart rate normal. Respiratory rate normal. Temperature normal. Oxygen saturation normal. Const General: cooperative, healthy appearing and no acute distress Orientation/consciousness: oriented to person, oriented to place, oriented to time and patient oriented x3 Limitations: no limitations HENMT Head: Yes normocephalic and Yes atraumatic Ears: external ears normal General nose exam: Normal external nose present Face and sinus: Yes face symmetric Mouth: oropharynx normal and moist mucous membranes Throat: Yes uvula midline Eyes Pupils: Equal, round and reactive pupils present Neck Neck: Yes normal visual inspection and Yes supple Resp Effort & Inspection: normal respiratory effort and able to speak in complete sentences Auscultation: clear to auscultation bilaterally and wheezes scattered wheezes Cardio Rate: regular rate Rhythm: regular rhythm Heart sounds: S1 normal heart sound present and S2 normal heart sound present GI Palpation (GI): Soft to palpation and nontender Auscultation: normoactive bowel sounds General: Yes no CVA tenderness Back/Spine/Pelvis Back: no CVA tenderness Skin General skin exam: elasticity normal and turgor normal Neuro General: oriented to person, oriented to place, oriented to time, patient oriented x3, moves all extremities, no focal motor deficits and CN's II-XI intact bilaterally Cranial nerves: Yes Equal, round and reactive pupils present Cognition (Neuro): normal cognition Extrem General: Yes full ROM, Yes no pedal edema and Yes no calf tenderness Psych Mental Status: mental status grossly normal Affect: normal affect Thought process: Normal thought process present Medical Decision Making Medical Decision Making [facility] Narrative: Patient is a 37-year-old female presenting to the emergency department with complaint of cough, nasal congestion, and chest pain during coughing episodes since Tuesday. On exam patient is awake, A+Ox3, VS WNL, afebrile, normal neurological exam without focal deficits, physical exam findings as above. Given reported symptoms and physical exam findings, initial differential includes viral illness, COVID, flu, RSV, bronchitis, pneumonia. Viral serology negative. Per RN, patient left without completing treatment prior to results of chest x-ray. Low suspicion for serious etiology of symptoms. Differential Diagnosis Differential Diagnoses: The differential diagnosis associated with the presentation includes As per [facility] Lab Data [facility] Lab Attestation statement: I reviewed the patient's lab results. As per [facility] Labs: Lab Results 08/22/23 Range/Units 05:03 Influenza Type A (PCR) NEGATIVE (Negative) Influenza Type B (PCR) NEGATIVE (Negative) RSV RNA Qual (PCR) NEGATIVE (Negative) SARS-CoV-2 RNA (RT-PCR) NEGATIVE (Negative) Independent Interpretation I performed an independent interpretation of an: Plain X-Ray Interpretation: No evidence of pneumonia on my review of chest x-ray, patient left without completing treatment prior to radiologist's reading of x-ray External Record Review External record reviewed: Inpatient record, Office record and Outpatient record Discharge Plan Discharge Clinical Impression: Viral infection Patient Disposition: Left W/O Completing Treatment Prescriptions: No Action sulindac 200 mg tablet 200 mg PO BID Qty: 60 0RF levofloxacin 500 mg tablet 500 mg PO DAILY Qty: 9 0RF ciprofloxacin-dexamethasone [Ciprodex] 0.3-0.1 % drops,suspension 4 drp otic (ears) BID 7 Days Qty: 7.5 0RF acetaminophen [Tylenol Extra Strength] 500 mg tablet 1,000 mg PO QID PRN (Reason: fever or pain) Qty: 14 0RF cyclobenzaprine 10 mg tablet 10 mg PO Q8H Qty: 14 0RF ofloxacin 0.3 % drops 10 drp otic (ears) DAILY 7 Days Qty: 5 0RF oxycodone-acetaminophen [Percocet] 5-325 mg tablet 1 tab PO Q6H PRN (Reason: pain) Qty: 10 0RF Rx Instructions: Partial Fill upon patient request. tramadol 50 mg tablet 50 mg PO Q6H PRN (Reason: pain) Qty: 8 0RF naproxen 500 mg tablet 500 mg PO BID Qty: 20 0RF Print Language: Macedonian
--- NOTE | 2023-08-22 09:25 | PC.NURSE ---
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
[2023-08-22 09:49] VITALS: BP 138/98; PULSE 71; RESP 18; TEMP 36.7; O2SAT 98
== END 2023-08-22 09:51 | disposition left against medical advice (07) ==
PROVIDERS: Emergency Provider Emergency Medicine; PCP Internal Medicine
DX: B34.9 Viral infection, unspecified (principal)
CPT/HCPCS: 0241U; 71046; 93005; 99283

== ENCOUNTER → 2023-08-22 04:52 | Outpatient (BNV) | payer OTHER, SELFPAY | PROVIDERS: Emergency Provider Emergency Medicine; PCP Internal Medicine; Visit Provider Internal Medicine | DX: R07.9 Chest pain, unspecified (principal) | CPT/HCPCS: 93010 ==

== ENCOUNTER 2023-09-16 04:18 | Emergency (ER) | payer OTHER, SELFPAY ==
[2023-09-16 04:26] VITALS: BP 134/88; PULSE 84; RESP 16; TEMP 36.9; O2SAT 97; BMI 29.0
[2023-09-16 04:40] LABS: IDNOW Serial# 08D9AD1C; Strep A Nucleic Acid Positive (Negative)
--- NOTE | 2023-09-16 04:55 | ED.GENADULT ---
HPI - General Adult General Chief complaint: General Medical Stated complaint: tonsil pain Time Seen by Provider: 09/16/23 04:52 Source: patient Mode of arrival: ambulatory Limitations: no limitations History of Present Illness ED Provider: demond CIFUENTES narrative: Patient complaining of sore throat for last 2 days painful to swallow no shortness a breath no cough no other URI symptoms patient has checked COVID at home was negative no other family member sick no fever Related Data Previous Rx's ?Medication ?Instructions ?Recorded ciprofloxacin 0.3 %-dexamethasone 4 drp otic (ears) BID 7 days #7.5 03/14/22 0.1 % ear drops,suspension mL (Ciprodex) levofloxacin 500 mg tablet 500 mg PO DAILY #9 tabs 03/14/22 acetaminophen 500 mg tablet 1,000 mg (2 x 500 mg) PO QID PRN 03/18/22 (Tylenol Extra Strength) fever or pain #14 tabs cyclobenzaprine 10 mg tablet 10 mg PO Q8H #14 tabs 06/06/22 sulindac 200 mg tablet 200 mg PO BID #60 tabs 07/07/22 naproxen 500 mg tablet 500 mg PO BID #20 tabs 06/07/23 ofloxacin 0.3 % ear drops 10 drp otic (ears) DAILY 7 days #5 06/07/23 mL oxycodone-acetaminophen 5 mg-325 1 tab PO Q6H PRN pain #10 tabs 06/07/23 mg tablet (Percocet) tramadol 50 mg tablet 50 mg PO Q6H PRN pain #8 tabs 06/07/23 amoxicillin 875 mg-potassium 1 tab PO BID #20 tabs 09/16/23 clavulanate 125 mg tablet ibuprofen 600 mg tablet 600 mg PO Q6H PRN fever or pain 09/16/23 #30 tabs Allergies Allergy/AdvReac Type Severity Reaction Status Date / Time No Known Allergies Allergy Verified 09/16/23 04:28 [No Known Allergies*] Review of Systems Review of Systems: Yes all other systems are reviewed and are negative PMFSH Past Medical History Medical History No known health problems Surgical History No pertinent past surgical history Family History Family History Mother HTN (hypertension) Father Diabetes 1.5, managed as type 1 Maternal Grandmother Colon cancer Breast cancer Social History Social History Household Members: Children Housing: Condominium Alcohol intake: never Patient Tobacco Use Status: Never used Tobacco Smoked in Last 30 Days: No e-Cigarette/Vaping Use: Never Used Second Hand Smoke Exposure: No Substance Use Type: Marijuana Special nimco needs: No Agree to transfusion: Yes Advance Directives: No Advance Directives Information Provided: No Patient : No service: No Current occupational status: employed Gender identity: Female Cognitive needs: No Hearing needs: No Vision needs: No Physical Exam ED Vital Signs: Vital Signs - 24 hr 09/16/23 04:26 09/16/23 05:17 Temperature 98.5 F 98.5 F Pulse Rate 84 84 Respiratory Rate 16 16 Blood Pressure 134/88 134/88 Pulse Oximetry 97 97 Oxygen Delivery Method Room Air Room Air BMI result Body Mass Index 29.0 Appearance: Alert. Oriented X3. No acute distress. ENT: Pharynx erythematous Oral Mucosa moist tympanic membrane intact no erythema Neck: Normal inspection. Neck supple. CVS: Normal heart rate and rhythm. Pulses normal. Respiratory: No respiratory distress. Equal air entry bilateral, no wheezing/rales/rhonchi Skin: Skin warm and dry. Normal skin color. Normal skin turgor. Extremities: No lower extremity edema. Neuro: Oriented X 3. Medications Administered Discontinued Medications Generic Name Dose Route Start Last Admin Trade Name Jobyq PRN Reason Stop Dose Admin Amoxicillin/Clavulanate Potassium 875 mg 09/16/23 04:52 09/16/23 05:15 Amoxicillin/Potassium Clav 875 Mg Tablet PO 09/16/23 04:53 875 mg ONCE ONE Administration Medical Decision Making Medical Decision Making MDM Narrative: Patient's strep positive discharged on Augmentin Lab Data MDM Lab Attestation statement: I reviewed the patient's lab results. Labs: Lab Results 09/16/23 Range/Units 04:31 Influenza Type A (PCR) NEGATIVE (Negative) Influenza Type B (PCR) NEGATIVE (Negative) RSV RNA Qual (PCR) NEGATIVE (Negative) SARS-CoV-2 RNA (RT-PCR) NEGATIVE (Negative) S. pyogenes GrpA DOMINIQUE Positive A (Negative) Discharge Plan Discharge Clinical Impression: Acute streptococcal pharyngitis Patient Disposition: Home, Self-Care Instructions: Strep Throat (ED) Additional Instructions: Drink plenty of fluids Tylenol/Motrin for pain Antibiotic as prescribed Follow with PCP if not better Prescriptions: New ibuprofen 600 mg tablet 600 mg PO Q6H PRN (Reason: fever or pain) Qty: 30 0RF amoxicillin-pot clavulanate 875-125 mg tablet 1 tab PO BID Qty: 20 0RF No Action sulindac 200 mg tablet 200 mg PO BID Qty: 60 0RF levofloxacin 500 mg tablet 500 mg PO DAILY Qty: 9 0RF ciprofloxacin-dexamethasone [Ciprodex] 0.3-0.1 % drops,suspension 4 drp otic (ears) BID 7 Days Qty: 7.5 0RF acetaminophen [Tylenol Extra Strength] 500 mg tablet 1,000 mg PO QID PRN (Reason: fever or pain) Qty: 14 0RF cyclobenzaprine 10 mg tablet 10 mg PO Q8H Qty: 14 0RF ofloxacin 0.3 % drops 10 drp otic (ears) DAILY 7 Days Qty: 5 0RF oxycodone-acetaminophen [Percocet] 5-325 mg tablet 1 tab PO Q6H PRN (Reason: pain) Qty: 10 0RF Rx Instructions: Partial Fill upon patient request. tramadol 50 mg tablet 50 mg PO Q6H PRN (Reason: pain) Qty: 8 0RF naproxen 500 mg tablet 500 mg PO BID Qty: 20 0RF Interventions: ED Discharge Assessment Last Done: 09/16/23 05:17 Discharge Date/Time: 09/16/23 05:19 Print Language: Telugu
[2023-09-16 05:14] LABS: Influenza A PCR NEGATIVE (Negative); Influenza B PCR NEGATIVE (Negative); Resp Syncy Virus RNA Qual PCR NEGATIVE (Negative); SARS COV2 PCR INHOUSE NEGATIVE (Negative)
[2023-09-16] MEDS: Amoxicillin/Potassium Clav 875 MG TABLET PO (05:15)
[2023-09-16 05:17] VITALS: BP 134/88; PULSE 84; RESP 16; TEMP 36.9; O2SAT 97
== END 2023-09-16 05:19 | disposition home or self-care (01) ==
PROVIDERS: Emergency Provider Internal Medicine; PCP Internal Medicine
DX: J02.0 Streptococcal pharyngitis (principal); Z03.818 Encounter for observation for suspected exposure to other biological agents ruled out
CPT/HCPCS: 0241U; 87651; 99283; 99284

== ENCOUNTER 2023-12-21 11:29 | Emergency (ER) | payer OTHER, SELFPAY ==
--- NOTE | 2023-12-21 | ECG_ITS ---
Test Reason : CHEST PAIN Blood Pressure : / mmHG Vent. Rate : 061 BPM Atrial Rate : 061 BPM P-R Int : 128 ms QRS Dur : 078 ms QT Int : 420 ms P-R-T Axes : 031 034 026 degrees QTc Int : 422 ms Normal sinus rhythm Normal ECG When compared with ECG of 22-AUG-2023 04:52, No significant change was found Referred By: Generic ED Physician Electronically Signed By:LINO JONES MD
--- NOTE | ~2023-12-21 | XR_ITS ---
EXAMINATION: XR CHEST 2 VIEW CLINICAL INFORMATION: Right-sided chest pain COMPARISON: 08/22/2023 TECHNIQUE: PA and lateral views of the chest obtained. FINDINGS: The lungs are clear. There are no pleural effusions. The cardiomediastinal silhouette is normal. No rib fracture, pneumothorax or bone lesion is detected. XR/XR chest 2V IMPRESSION: No acute cardiopulmonary disease. Electronically signed by: Ryan Chavez MD 12/21/2023 01:19 PM EDT
[2023-12-21 12:08] VITALS: BP 144/79; PULSE 60; RESP 16; TEMP 37; O2SAT 99; BMI 27.8
--- NOTE | 2023-12-21 12:14 | ED.GENADULT ---
HPI - General Adult General Chief complaint: Chest Pain Stated complaint: cp Time Seen by Provider: 12/21/23 16:00 Source: patient Mode of arrival: ambulatory Limitations: no limitations History of Present Illness ED Provider: Arturo BERMEO HPI narrative: 38-year-old female with no past medical history presents to ED for right-sided chest pain that is worse on movement of torso and extremity with pleurisy for 5 days. Patient states symptoms started after heavy lifting while trying to help friend move into house. Patient denies any recent long travel or recent surgery. Patient denies any history of blood clots. Patient denies any leg swelling, calf pain, coughing up blood, or pitting edema. Patient denies breast swelling, nipple discharge, redness, or bleeding from the breast. Related Data Previous Rx's ?Medication ?Instructions ?Recorded ciprofloxacin 0.3 %-dexamethasone 4 drp otic (ears) BID 7 days #7.5 03/14/22 0.1 % ear drops,suspension mL (Ciprodex) levofloxacin 500 mg tablet 500 mg PO DAILY #9 tabs 03/14/22 acetaminophen 500 mg tablet 1,000 mg (2 x 500 mg) PO QID PRN 03/18/22 (Tylenol Extra Strength) fever or pain #14 tabs cyclobenzaprine 10 mg tablet 10 mg PO Q8H #14 tabs 06/06/22 sulindac 200 mg tablet 200 mg PO BID #60 tabs 07/07/22 naproxen 500 mg tablet 500 mg PO BID #20 tabs 06/07/23 ofloxacin 0.3 % ear drops 10 drp otic (ears) DAILY 7 days #5 06/07/23 mL oxycodone-acetaminophen 5 mg-325 1 tab PO Q6H PRN pain #10 tabs 06/07/23 mg tablet (Percocet) tramadol 50 mg tablet 50 mg PO Q6H PRN pain #8 tabs 06/07/23 amoxicillin 875 mg-potassium 1 tab PO BID #20 tabs 09/16/23 clavulanate 125 mg tablet ibuprofen 600 mg tablet 600 mg PO Q6H PRN fever or pain 09/16/23 #30 tabs naproxen 500 mg tablet 500 mg PO BID PRN pain 7 days #14 12/21/23 tabs Allergies Allergy/AdvReac Type Severity Reaction Status Date / Time No Known Allergies Allergy Verified 12/21/23 12:11 [No Known Allergies*] Review of Systems Review of Systems: Right-sided chest pain worse on movement of torso and right upper extremity. Pleurisy Yes all other systems are reviewed and are negative [facility] Past Medical History Medical History No known health problems Surgical History No pertinent past surgical history Family History Family History Mother HTN (hypertension) Father Diabetes 1.5, managed as type 1 Maternal Grandmother Colon cancer Breast cancer Social History Social History Household Members: Children [facility] Alcohol intake: never Patient Tobacco Use Status: Never used Tobacco e-Cigarette/Vaping Use: Never Used Second Hand Smoke Exposure: No Substance Use Type: Marijuana Special nimco needs: No Agree to transfusion: Yes Advance Directives: No Advance Directives Information Provided: No service: No Current occupational status: employed Gender identity: Female Cognitive needs: No Hearing needs: No Vision needs: No Physical Exam ED Vital Signs: Vital Signs - 24 hr 12/21/23 12:08 12/21/23 16:12 Temperature 98.6 F 98.6 F Pulse Rate 60 60 Respiratory Rate 16 16 Blood Pressure 144/79 H 144/79 H Pulse Oximetry 99 99 Oxygen Delivery Method Room Air Room Air BMI result Body Mass Index 27.8 Const General: cooperative, healthy appearing, comfortable, no acute distress, well developed, alert and awake Orientation/consciousness: patient oriented x3 HENMT Head: Yes normal to inspection, Yes No palpable skull fracture present, Yes normocephalic and Yes atraumatic Throat: Yes posterior oropharynx normal, Yes tonsils normal and Yes uvula midline Eyes General: appearance normal, both eyes and all related structures Neck Neck: Yes normal visual inspection, Yes full ROM, Yes no lymphadenopathy, Yes no meningeal signs, Yes trachea midline, Yes supple, No anterior neck swelling and No tender Chest Chest palpation & inspection: normal inspection of the chest Breast/axilla inspection: normal inspection of the breasts Chest/axillae images: 1. Positive for tenderness on palpation. Negative for rash,, ecchymosis, crepitus, deformity. Resp Effort & Inspection: normal respiratory effort Auscultation: clear to auscultation bilaterally Cardio Jugular venous distension: no JVD Heart sounds: S1 normal heart sound present and S2 normal heart sound present GI Inspection: Yes normal to inspection Palpation (GI): Soft to palpation, not firm, nontender, no guarding and not rigid General: No CVA tenderness and Yes no CVA tenderness Back/Spine/Pelvis Back: no CVA tenderness, No CVA tenderness and No back tenderness Skin General skin exam: no rashes or lesions noted, elasticity normal and turgor normal Neuro General: patient oriented x3, gait normal, tone normal, moves all extremities, Normal light touch and pain sensation, no meningeal signs, no focal motor deficits, CN's II-XI intact bilaterally and normal sensation to monofilament Extrem Other: Bilateral lower extremity negative for swelling, pitting edema, or calf tenderness. General: Yes normal to inspection, Yes full ROM and Yes capillary refill normal Psych Appearance: grossly normal, well kempt and not disheveled Course Course Course Narrative: RME: done by GIOVANNA Seals. 38-year-old female presents to the ED for right-sided chest pain with pleurisy for 5 days also worse on movement. Patient was helping somebody move in the house thinks she pulled a muscle. Patient denies any control use or any recent long travel recent surgery. Patient denies any history of blood clots. Positive for right chest wall tenderness on palpation. Lungs are clear. Negative for any lower extremity swelling, pitting edema or calf tenderness. EKG chest x-ray labs ordered. Medical Decision Making Medical Decision Making MDM Narrative: [age] year female presents to ED for right-sided chest pain that is worse on movement of torso and right upper extremity and also pleurisy. Patient states pain started after patient was moving objects while moving. Patient denies any recent long travel recent surgery. Physical exam positive for right chest wall tenderness on palpation. Negative for breast swelling nipple swelling or rash. EKG normal sinus. Troponin negative. D-dimer negative. Perc score was 0. Not suspect a pneumothorax, hemothorax, CHF, PE, myocardial infarction, pericarditis, myocarditis, or rib fracture. EKG negative STEMI. Patient explained worrisome signs and informed to follow-up immediately with the ED Differential Diagnosis Differential Diagnoses: The differential diagnosis associated with the presentation includes (Right chest wall pain, PE) Admission/Observation Consideration of admission/observation: Escalation of care including admission/observation considered Lab Data MDM Lab Attestation statement: I reviewed the patient's lab results. 12/21/23 12:50 12/21/23 12:50 Labs: Lab Results 12/21/23 Range/Units 12:50 WBC 7.2 (4.8-10.8) X10*3/uL RBC 4.36 (4.20-5.50) X10*6/uL Hgb 13.1 (12.0-16.0) g/dl Hct 39.4 (37.0-47.0) % MCV 90.4 (80.0-98.0) fL MCH 30.0 (27.0-33.0) pg MCHC 33.2 (31.0-35.0) g/dl RDW 12.6 (11.0-16.0) % Plt Count 228 (160-400) X10*3/uL MPV 11.8 (9.4-12.3) fL Immature Gran % (Auto) 0.4 (0.0-0.4) % Neut % (Auto) 65.0 (45-73) % Lymph % (Auto) 28.0 (20-40) % [place] % (Auto) 5.4 (2-11) % Eos % (Auto) 0.8 (0-4) % Baso % (Auto) 0.4 (0-2) % Lymph # (Auto) 2.0 (1.2-4.9) X10*3/uL [place] # (Auto) 0.4 (0.1-1.2) X10*3/uL Eos # (Auto) 0.1 (0.0-0.4) X10*3/uL Baso # (Auto) 0.0 (0.0-0.2) X10*3/uL Abs Immat Gran (auto) 0.03 (0.00-0.03) X10*3/uL Absolute Neuts (auto) 4.7 (2.0-8.3) x10*3/uL Absolute Nucleated RBC 0.000 (0.0-0.012) X10*3/uL Nucleated RBC % (auto) 0.0 (0.0-0.2) /100WBC PT 11.9 (10.9-12.4) SEC INR 1.0 (0.9-1.1) APTT 36.8 (26.0-36.8) SEC D-Dimer High Sensitivty < 150 NG/ML Sodium 142 (135-145) mmol/L Potassium 3.4 (3.3-5.1) mmol/L Chloride 108 (96-108) mmol/L Carbon Dioxide 28 (22-29) mmol/L Anion Gap 9 L (12-20) BUN 8 L (9-16) mg/dL Creatinine 0.68 (0.5-1.4) mg/dL Estim Creat Clear Calc 118.3 Estimated GFR > 60 Random Glucose 89 (60-115) mg/dL Calcium 9.4 (8.4-10.2) mg/dL Total Bilirubin 0.5 (0.0-1.0) mg/dL AST 27 (5-31) U/L ALT 34 H (0-31) U/L Alkaline Phosphatase 88 (39-117) U/L Troponin I High Sens < 2.7 (<3.5-17.0) ng/L B-Natriuretic Peptide 56 (<100) pg/mL Total Protein 7.2 (6.5-8.0) g/dL Albumin 4.4 (3.5-5.0) g/dL Independent Interpretation I performed an independent interpretation of an: EKG (Normal sinus rhythm) and Plain X-Ray Independent Historian Clinical information obtained from an independent historian. History obtained from or confirmed by: Other (Patient) External Record Review External record reviewed: Other (Prior notes) Discharge Plan Discharge Clinical Impression: Atypical chest pain Patient Disposition: Home, Self-Care Instructions: Chest Pain (ED), Chest Wall Pain (ED) Additional Instructions: Recommend follow-up with your primary care provider. Return to the ED immediately for worsening chest pain, coughing up blood, leg swelling, calf pain, chest pain/shortness of breath on inspiration, weakness, dizziness, rash, breast swelling, breast discharge, nipple discharge, or any other concerning symptoms. Prescriptions: New naproxen 500 mg tablet 500 mg PO BID PRN (Reason: pain) 7 Days Qty: 14 0RF No Action sulindac 200 mg tablet 200 mg PO BID Qty: 60 0RF levofloxacin 500 mg tablet 500 mg PO DAILY Qty: 9 0RF ciprofloxacin-dexamethasone [Ciprodex] 0.3-0.1 % drops,suspension 4 drp otic (ears) BID 7 Days Qty: 7.5 0RF acetaminophen [Tylenol Extra Strength] 500 mg tablet 1,000 mg PO QID PRN (Reason: fever or pain) Qty: 14 0RF cyclobenzaprine 10 mg tablet 10 mg PO Q8H Qty: 14 0RF ibuprofen 600 mg tablet 600 mg PO Q6H PRN (Reason: fever or pain) Qty: 30 0RF amoxicillin-pot clavulanate 875-125 mg tablet 1 tab PO BID Qty: 20 0RF ofloxacin 0.3 % drops 10 drp otic (ears) DAILY 7 Days Qty: 5 0RF oxycodone-acetaminophen [Percocet] 5-325 mg tablet 1 tab PO Q6H PRN (Reason: pain) Qty: 10 0RF Rx Instructions: Partial Fill upon patient request. tramadol 50 mg tablet 50 mg PO Q6H PRN (Reason: pain) Qty: 8 0RF naproxen 500 mg tablet 500 mg PO BID Qty: 20 0RF Interventions: ED Discharge Assessment Last Done: 12/21/23 16:12 Discharge Date/Time: 12/21/23 16:26 Print Language: [place]
[2023-12-21 12:55] LABS: MANUAL DIFF FLAG NO
[2023-12-21 12:56] LABS: Basophils Percent Auto 0.4 % (0-2); Eosinophils Absolute Auto 0.1 X10*3/uL (0.0-0.4); Eosinophils Percent Auto 0.8 % (0-4); Hematocrit 39.4 % (37.0-47.0); Hemoglobin 13.1 g/dl (12.0-16.0); Imm Gran Abs Auto 0.03 X10*3/uL (0.00-0.03); Imm Gran Pct Auto 0.4 % (0.0-0.4); Mean Corpuscular HGB Conc 33.2 g/dl (31.0-35.0); Mean Corpuscular Volume 90.4 fL (80.0-98.0); Mean Platelet Volume 11.8 fL (9.4-12.3); Monocytes Absolute Auto 0.4 X10*3/uL (0.1-1.2); Monocytes Percent Auto 5.4 % (2-11); Neutrophils Absolute Auto 4.7 x10*3/uL (2.0-8.3); Platelet Count 228 X10*3/uL (160-400); Red Blood Count 4.36 X10*6/uL (4.20-5.50); Red Cell Distribution Width 12.6 % (11.0-16.0); White Blood Count 7.2 X10*3/uL (4.8-10.8)
[2023-12-21 13:04] LABS: Prothrombin Time 11.9 SEC (10.9-12.4)
[2023-12-21 13:06] LABS: Partial Thromboplastin Time 36.8 SEC (26.0-36.8)
[2023-12-21 13:18] LABS: Alanine Aminotransferase 34 U/L (0-31); Albumin Level 4.4 g/dL (3.5-5.0); Alkaline Phosphatase 88 U/L (39-117); Anion Gap 9 (12-20); Aspartate Amino Transferase 27 U/L (5-31); Bilirubin Total 0.5 mg/dL (0.0-1.0); Blood Urea Nitrogen 8 mg/dL (9-16); Calcium 9.4 mg/dL (8.4-10.2); Carbon Dioxide 28 mmol/L (22-29); Chloride 108 mmol/L (96-108); Creatinine Clr Calc Pharmacy 118.3; Estimated Glomerular Filt Rate > 60; Glucose Random 89 mg/dL (60-115); Potassium 3.4 mmol/L (3.3-5.1); Sodium 142 mmol/L (135-145); Total Protein 7.2 g/dL (6.5-8.0)
[2023-12-21 13:23] LABS: B Type Natriuretic Peptide 56 pg/mL (<100)
[2023-12-21 13:29] LABS: Troponin-I High Sensitivity < 2.7 ng/L (<3.5-17.0)
[2023-12-21 15:06] LABS: D Dimer High Sensitivity < 150 NG/ML
[2023-12-21 16:12] VITALS: BP 144/79; PULSE 60; RESP 16; TEMP 37; O2SAT 99
== END 2023-12-21 16:26 | disposition home or self-care (01) ==
LOC: HO.ED 16:10
PROVIDERS: Physician Assistant; Emergency Provider Internal Medicine; PCP Internal Medicine
DX: R07.89 Other chest pain (principal)
CPT/HCPCS: 36415; 71046; 80053; 83880; 84484; 85025; 85379; 85610; 85730; 93005; 99283

== ENCOUNTER → 2023-12-21 12:37 | Outpatient (BNV) | payer OTHER, SELFPAY | PROVIDERS: Emergency Provider Internal Medicine; PCP Internal Medicine; Visit Provider Internal Medicine Cardiovascular Disease | DX: R07.9 Chest pain, unspecified (principal) | CPT/HCPCS: 93010 ==

== ENCOUNTER 2024-08-26 10:20 | Emergency (ER) | payer OTHER, SELFPAY ==
--- NOTE | ~2024-08-26 | XR_ITS ---
CLINICAL HISTORY: right lower back pain s p heavy lifting 3 views lumbar spine Comparison: None Findings: Normal alignment. No acute fractures or dislocation. There are changes of very mild degenerative disc disease at L4-L5. Possible right-sided facet osteoarthritis at L5-S1. IMPRESSION: No acute findings. This document has been electronically signed by: Vera Leija MD on 08/26/2024 13:14:03
--- NOTE | ~2024-08-26 | CT_ITS ---
CLINICAL HISTORY: elevated bp, headache vision changes CT head without contrast Comparison: None Findings: No intra-axial mass, midline shift, hydrocephalus, or acute hemorrhage. No significant atrophy-like change or white matter disease. The visualized paranasal sinuses and mastoid air cells are normal. The orbits are within normal limits. There is no acute fracture. IMPRESSION: 1. No acute intracranial findings. This document has been electronically signed by: Vera Leija MD on 08/26/2024 13:53:14
[2024-08-26 10:35] VITALS: BP 156/104; PULSE 71; RESP 16; TEMP 36.7; O2SAT 96; BMI 26.4
--- NOTE | 2024-08-26 10:43 | ECG_ITS ---
Test Reason : DIZZINESS Blood Pressure : */* mmHG Vent. Rate : 65 BPM Atrial Rate : 65 BPM P-R Int : 128 ms QRS Dur : 74 ms QT Int : 388 ms P-R-T Axes : 69 72 58 degrees QTcB Int : 403 ms Normal sinus rhythm Septal infarct , age undetermined Abnormal ECG When compared with ECG of 21-Dec-2023 12:37, Septal infarct is now Present Referred By: Generic ED Physician Electronically Signed By: Sandeep Iniguez
--- NOTE | 2024-08-26 10:57 | ED.GENADULT ---
HPI - General Adult General Chief complaint: Back Pain/Injury Stated complaint: high bp Time Seen by Provider: 08/26/24 10:29 Source: patient Mode of arrival: ambulatory Limitations: no limitations History of Present Illness ED Provider: ABBY RICKS PA-C HPI narrative: 38 year old female with pmhx significant for chronic low back pain and HTN presents to the ED for evaluation of acute on chronic low back pain x1 week. She reports her back pain worsened after lifting a case of water last Tuesday. The pain is localized to her right lower back and radiates down the back of her right leg. Reports associated intermittent numbness and tingling localized to the leg with certain movements. Her pain is currently 9.5/10. She has tried taking ibuprofen and [place] cream without improvement in symptoms. She states she has chronic back pain, but it has never been this severe before. She also reports a headache and dizziness which began this morning, prompting her to take her blood pressure, which was elevated. Cannot recall the number. She is noncompliant with her prescribed anti-hypertensive medication (nifedipine). Reports finding an old prescription for this at home and took a dose this morning. She denies any changes to her mental status, recent travel, or sick contacts. Related Data Previous Rx's ?Medication ?Instructions ?Recorded ciprofloxacin 0.3 %-dexamethasone 4 drp otic (ears) BID 7 days #7.5 03/14/22 0.1 % ear drops,suspension mL (Ciprodex) levofloxacin 500 mg tablet 500 mg PO DAILY #9 tabs 03/14/22 acetaminophen 500 mg tablet 1,000 mg (2 x 500 mg) PO QID PRN 03/18/22 (Tylenol Extra Strength) fever or pain #14 tabs cyclobenzaprine 10 mg tablet 10 mg PO Q8H #14 tabs 06/06/22 sulindac 200 mg tablet 200 mg PO BID #60 tabs 07/07/22 naproxen 500 mg tablet 500 mg PO BID #20 tabs 06/07/23 ofloxacin 0.3 % ear drops 10 drp otic (ears) DAILY 7 days #5 06/07/23 mL oxycodone-acetaminophen 5 mg-325 1 tab PO Q6H PRN pain #10 tabs 06/07/23 mg tablet (Percocet) tramadol 50 mg tablet 50 mg PO Q6H PRN pain #8 tabs 06/07/23 amoxicillin 875 mg-potassium 1 tab PO BID #20 tabs 09/16/23 clavulanate 125 mg tablet ibuprofen 600 mg tablet 600 mg PO Q6H PRN fever or pain 09/16/23 #30 tabs naproxen 500 mg tablet 500 mg PO BID PRN pain 7 days #14 12/21/23 tabs amlodipine 2.5 mg tablet 2.5 mg PO DAILY 30 days #30 tabs 08/26/24 cyclobenzaprine 5 mg tablet 5 mg PO Q8H PRN muscle pain #9 tabs 08/26/24 lidocaine 5 % topical patch 1 patch topical DAILY #15 ea 08/26/24 (Lidoderm) Allergies Allergy/AdvReac Type Severity Reaction Status Date / Time No Known Allergies (No Known Allergy Verified 08/26/24 10:36 Allergies*) Review of Systems Review of Systems: Constitutional: No fever, chills, fatigue, night sweats, weight changes ENT/Mouth: No ear pain, hearing loss, nasal congestion, sinus pain, rhinorrhea, sore throat Eyes: No eye pain, swelling, redness, vision changes, discharge Cardio: No chest pain, palpitations, PENA, orthopnea, peripheral edema Pulm: No SOB, cough, sputum, wheezing, dyspnea, hemoptysis GI: No nausea, vomiting, hematemesis, abdominal pain, diarrhea, constipation, hematochezia, melena : No irregular bleeding, dysuria, frequency, urgency, hesitancy, hematuria, flank pain, urinary flow changes, urinary incontinence or retention MSK: No neck pain, joint pain, myalgias, +back pain Skin: No lesions, rashes Neuro: No weakness, numbness, paresthesias, LOC, dizziness, headache Psych: No anxiety/panic, depression, SI/HI, AH/VH All other systems reviewed and are negative. [facility] Past Medical History Attestation statement: The following information was validated with the patient. Source: old records reviewed and nursing notes reviewed Medical History No known health problems Surgical History No pertinent past surgical history Family History Family History Mother HTN (hypertension) Father Diabetes 1.5, managed as type 1 Maternal Grandmother Colon cancer Breast cancer Social History Social History Household Members: Children [facility] Alcohol intake: never Patient Tobacco Use Status: Never used Tobacco e-Cigarette/Vaping Use: Never Used Second Hand Smoke Exposure: No Substance Use Type: Marijuana Special nimco needs: No Agree to transfusion: Yes service: No Current occupational status: employed Gender identity: Female Cognitive needs: No Hearing needs: No Vision needs: No Physical Exam ED Vital Signs: Vital Signs - 24 hr 08/26/24 10:35 08/26/24 12:00 08/26/24 14:07 Temperature 98.1 F Pulse Rate 71 61 65 Respiratory Rate 16 14 14 Blood Pressure 156/104 H 137/74 145/84 H Pulse Oximetry 96 99 99 Oxygen Delivery Method Room Air Room Air Room Air BMI result Body Mass Index 26.4 hypertensive, vitals otherwise wnl General: Well appearing, in no acute distress. Skin: Warm, dry, intact. No rashes or lesions. Head: Normocephalic, atraumatic. EENT: Hearing is intact b/l. Conjunctiva clear. Sclera is anicteric. PERRLA. EOM intact. Moist mucous membranes.? Cardiac: Chest wall symmetric. RRR Lungs: Normal respiratory effort without accessory muscle use. CTA bilaterally Abdomen: Soft, non-tender, non-distended. No rebound tenderness or guarding. Positive BS x4. Back: Tenderness to palpation of midline lumbar spine and right lumbar paraspinal muscles. No step off deformity. No CVA tenderness. Ext: Upper and lower extremities atraumatic, without tenderness, deformity, swelling or erythema. Full ROM throughout. Neuro: AOx3. NIH 0. Normal speech. Strength 5/5 intact throughout. No saddle anesthesia. Sensation intact to light touch. NV intact distally. Ambulating with steady gait Course Course Course Narrative: cbc without leukocytosis or left shift. No anemia. H&H stable. Chemistry without acute electrolyte abnormality requiring intervention. No SPENCER. Liver function WNL. Troponin undetectable. Beta quant undetectable. Urine showing trace blood, 6-10 RBCs, 3-5 squamous epithelial cells, trace bacteria. No urinary symptoms. Will await urine culture to treat. X-ray lumbar spine unremarkable. No acute fracture. CT head/brain without intracranial bleed or mass. > blood pressure has improved without intervention. > back pain improved with pain control. ambulating w/ steady gait. > given history of high blood pressure, noncompliant with medications, will start patient on low-dose amlodipine. Advised PCP follow-up. Advised to track blood pressure at home. Medications Administered Discontinued Medications Generic Name Dose Route Start Last Admin Trade Name Mauricio PRN Reason Stop Dose Admin Cyclobenzaprine HCl 10 mg 08/26/24 11:19 08/26/24 11:50 Cyclobenzaprine Hcl 10 Mg Tablet PO 08/26/24 11:20 10 mg ONCE ONE Administration Ketorolac Tromethamine 30 mg 08/26/24 11:19 08/26/24 11:50 Ketorolac Tromethamine 30 Mg/Ml Vial IVPUSH 08/26/24 11:20 30 mg ONCE ONE Administration Lidocaine 1 patch 08/26/24 11:19 08/26/24 11:50 Lidocaine 4 % Patch Adh..Patch TRANSDERMA 08/26/24 11:20 1 patch ONCE ONE Administration Protocol Oxycodone HCl 5 mg 08/26/24 14:11 08/26/24 14:41 Oxycodone Hcl Immed Release 5 Mg Tablet PO 08/26/24 14:12 5 mg ONCE ONE Administration Medical Decision Making Medical Decision Making [facility] Narrative: 38 year old female with pmhx significant for chronic low back pain and HTN presents to the ED for evaluation of acute on chronic low back pain x1 week, and elevated BP on waking this morning. Differential diagnosis includes MSK sprain/strain, arthritis, muscle spasm, sciatica, disc herniation, DDD. Lower suspicion for fracture versus subluxation. Lower suspicion for UTI, nephrolithiasis, renal colic. Suspicion for essential hypertension, hypertensive urgency versus emergency, medication noncompliance. Lower suspicion for ICH, intracranial bleed. Plan for labs, EKG, xr lumbar spine, CT head/brain, pain control and re-evaluation Differential Diagnosis Differential Diagnoses: The differential diagnosis associated with the presentation includes as above. Admission/Observation not indicated Lab Data [facility] Lab Attestation statement: I reviewed the patient's lab results. as above. 08/26/24 11:30 08/26/24 11:30 Labs: Lab Results 08/26/24 08/26/24 Range/Units 11:30 15:56 WBC 7.2 (4.8-10.8) X10*3/uL RBC 4.97 (4.20-5.50) X10*6/uL Hgb 14.8 (12.0-16.0) g/dl Hct 44.2 (37.0-47.0) % MCV 88.9 (80.0-98.0) fL MCH 29.8 (27.0-33.0) pg MCHC 33.5 (31.0-35.0) g/dl RDW 12.1 (11.0-16.0) % Plt Count 245 (160-400) X10*3/uL MPV 11.6 (9.4-12.3) fL Immature Gran % (Auto) 0.4 (0.0-0.4) % Neut % (Auto) 67.7 (45-73) % Lymph % (Auto) 24.8 (20-40) % [place] % (Auto) 5.9 (2-11) % Eos % (Auto) 0.6 (0-4) % Baso % (Auto) 0.6 (0-2) % Lymph # (Auto) 1.8 (1.2-4.9) X10*3/uL [place] # (Auto) 0.4 (0.1-1.2) X10*3/uL Eos # (Auto) 0.0 (0.0-0.4) X10*3/uL Baso # (Auto) 0.0 (0.0-0.2) X10*3/uL Abs Immat Gran (auto) 0.03 (0.00-0.03) X10*3/uL Absolute Neuts (auto) 4.9 (2.0-8.3) x10*3/uL Absolute Nucleated RBC 0.000 (0.0-0.012) X10*3/uL Nucleated RBC % (auto) 0.0 (0.0-0.2) /100WBC Sodium 142 (135-145) mmol/L Potassium 4.2 D (3.3-5.1) mmol/L Chloride 109 H (96-108) mmol/L Carbon Dioxide 22 (22-29) mmol/L Anion Gap 15 (12-20) BUN 14 (9-16) mg/dL Creatinine 0.66 (0.5-1.4) mg/dL Estim Creat Clear Calc 119.0 Estimated GFR > 60 Random Glucose 96 (60-115) mg/dL Calcium 9.7 (8.4-10.2) mg/dL Magnesium 1.9 (1.6-2.6) mg/dL Total Bilirubin 0.6 (0.0-1.0) mg/dL AST 27 (5-31) U/L ALT 21 (0-31) U/L Alkaline Phosphatase 100 (39-117) U/L Troponin I High Sens < 2.7 (<3.5-17.0) ng/L Total Protein 8.0 (6.5-8.0) g/dL Albumin 4.9 (3.5-5.0) g/dL Beta HCG, Quant < 2 mIU/mL Urine Color Yellow Urine Appearance Clear Urine pH 6.0 (5.0-9.0) Ur Specific [place] 1.025 (1.005-1.025) Urine Protein Trace (Neg-Trace) mg/dL Urine Glucose (UA) Negative (Negative) mg/dL Urine Ketones Trace (Negative) mg/dL Urine Blood Trace H (Negative) Urine Nitrite Negative (Negative) Ur Leukocyte Esterase Negative (Negative) Urine RBC 6-10 H (0-2) /HPF Urine WBC 0-5 (0-5) /HPF Ur Squamous Epith Cells 3-5 (0-2) /HPF Urine Bacteria Trace (None Seen) Hyaline Casts 3-5 (0-2) /LPF Independent Interpretation I performed an independent interpretation of an: EKG, Plain X-Ray and CT Scan Interpretation: ct head/brain without bleed xr lumbar spine without fracture ekg showing NSR w/ rate of 65 bpm, no acute ischemic changes or st elevations Radiology Impression Discussion of test interpretation with radiology: I have reviewed the radiologist's reading. Radiologist Impression: Date of Service: 08/26/24 Procedure(s): CT head/brain wo IV con Accession Number(s): [id number] cc: Armand Art MD; Abby Ricks~ Report Number: [id number]: Total DLP = 669.00 mGy-cm CLINICAL HISTORY: elevated bp, headache vision changes CT head without contrast Comparison: None Findings: No intra-axial mass, midline shift, hydrocephalus, or acute hemorrhage. No significant atrophy-like change or white matter disease. The visualized paranasal sinuses and mastoid air cells are normal. The orbits are within normal limits. There is no acute fracture. IMPRESSION: 1. No acute intracranial findings. Date of Service: 08/26/24 Procedure(s): XR lumbar spine 2-3V Accession Number(s): [id number] cc: Armand Art MD; Abby Ricks~ CLINICAL HISTORY: right lower back pain s p heavy lifting 3 views lumbar spine Comparison: None Findings: Normal alignment. No acute fractures or dislocation. There are changes of very mild degenerative disc disease at L4-L5. Possible right-sided facet osteoarthritis at L5-S1. IMPRESSION: No acute findings. This document has been electronically signed by: Vera Leija MD on 08/26/2024 13:14:03 External Record Review External record reviewed: Inpatient record Prescription Management I considered prescription management with: Pain Medication Chronic Conditions Patient?s care impacted by: Other (back pain) Social Determinants Patient?s care significantly limited by Social Determinants of Health including: Other Social Determinant of Health Critical Care Time Critical Care Time Critical Care Time: No Discharge Plan Discharge Clinical Impression: Lumbar radiculopathy, Hypertension Patient Disposition: Home, Self-Care Instructions: Lumbar Radiculopathy (ED), DASH Eating Plan (ED), Hypertension (ED) Additional Instructions: You were evaluated in the Emergency Department today for your back pain.? Your evaluation did not show signs of medical conditions requiring emergent intervention at this time. Avoid bending, lifting, or twisting. Use ice several times per day for 20 minutes at a time for the next 48 hours and then change to heat. I recommend you take 600mg ibuprofen every 6 hours or tylenol 650mg every 6 hours as needed for pain. If needed, you can alternate these medications so that you take one medication every 3 hours. For example, at noon take ibuprofen, then at 3pm take tylenol, then at 6pm take ibuprofen. Flexeril is a muscle relaxer. Take this at night as it makes you drowsy. Do not drive, drink alcohol, or operate machinery while taking it. Lidoderm patches are numbing patches. Apply to painful areas. Please schedule an appointment for follow-up with your primary care provider this week for further evaluation of your symptoms. Your blood pressure was also noted to be elevated in the ED today. I am starting you on low-dose amlodipine. DO NOT TAKE THIS WITH NIFEDIPINE Take this every night starting tomorrow. Please monitor your blood pressure at home every other day. You need to follow up with your PCP in 1-2 weeks as this needs to be monitored. Return to the Emergency Department if you experience worsening back pain, difficulty walking, fevers, numbness, tingling, incontinence, or any other concerning symptoms. In the case of an emergency call 911. Prescriptions: New cyclobenzaprine 5 mg tablet 5 mg PO Q8H PRN (Reason: muscle pain) Qty: 9 0RF lidocaine [Lidoderm] 5 % adhesive patch,medicated 1 patch topical DAILY Qty: 15 0RF Rx Instructions: leave on most painful area for up to 12 hrs amlodipine 2.5 mg tablet 2.5 mg PO DAILY 30 Days Qty: 30 0RF No Action sulindac 200 mg tablet 200 mg PO BID Qty: 60 0RF levofloxacin 500 mg tablet 500 mg PO DAILY Qty: 9 0RF ciprofloxacin-dexamethasone [Ciprodex] 0.3-0.1 % drops,suspension 4 drp otic (ears) BID 7 Days Qty: 7.5 0RF acetaminophen [Tylenol Extra Strength] 500 mg tablet 1,000 mg PO QID PRN (Reason: fever or pain) Qty: 14 0RF cyclobenzaprine 10 mg tablet 10 mg PO Q8H Qty: 14 0RF ibuprofen 600 mg tablet 600 mg PO Q6H PRN (Reason: fever or pain) Qty: 30 0RF amoxicillin-pot clavulanate 875-125 mg tablet 1 tab PO BID Qty: 20 0RF naproxen 500 mg tablet 500 mg PO BID PRN (Reason: pain) 7 Days Qty: 14 0RF ofloxacin 0.3 % drops 10 drp otic (ears) DAILY 7 Days Qty: 5 0RF oxycodone-acetaminophen [Percocet] 5-325 mg tablet 1 tab PO Q6H PRN (Reason: pain) Qty: 10 0RF Rx Instructions: Partial Fill upon patient request. tramadol 50 mg tablet 50 mg PO Q6H PRN (Reason: pain) Qty: 8 0RF naproxen 500 mg tablet 500 mg PO BID Qty: 20 0RF Referrals: Armand Art MD [Primary Care Provider] Referral Note: hypertension Interventions: ED Discharge Assessment Last Done: 08/26/24 16:58 Discharge Date/Time: 08/26/24 17:00 Print Language: Somali
[2024-08-26 11:33] LABS: MANUAL DIFF FLAG NO
[2024-08-26 11:48] LABS: Basophils Percent Auto 0.6 % (0-2); Eosinophils Percent Auto 0.6 % (0-4); Hematocrit 44.2 % (37.0-47.0); Hemoglobin 14.8 g/dl (12.0-16.0); Imm Gran Abs Auto 0.03 X10*3/uL (0.00-0.03); Imm Gran Pct Auto 0.4 % (0.0-0.4); Lymphocytes Absolute Auto 1.8 X10*3/uL (1.2-4.9); Lymphocytes Percent Auto 24.8 % (20-40); Mean Corpuscular HGB Conc 33.5 g/dl (31.0-35.0); Mean Corpuscular Hemoglobin 29.8 pg (27.0-33.0); Mean Corpuscular Volume 88.9 fL (80.0-98.0); Mean Platelet Volume 11.6 fL (9.4-12.3); Monocytes Absolute Auto 0.4 X10*3/uL (0.1-1.2); Monocytes Percent Auto 5.9 % (2-11); Neutrophils Absolute Auto 4.9 x10*3/uL (2.0-8.3); Neutrophils Percent Auto 67.7 % (45-73); Platelet Count 245 X10*3/uL (160-400); Red Blood Count 4.97 X10*6/uL (4.20-5.50); Red Cell Distribution Width 12.1 % (11.0-16.0); White Blood Count 7.2 X10*3/uL (4.8-10.8)
[2024-08-26] MEDS: Lidocaine 4 % Patch ADH..PATCH 1 PATCH TRANSDERMA (11:50)
[2024-08-26] MEDS: Ketorolac Tromethamine 30 MG/ML VIAL IVPUSH (11:50)
[2024-08-26] MEDS: Cyclobenzaprine HCl 10 MG TABLET PO (11:50)
[2024-08-26 11:55] LABS: Magnesium 1.9 mg/dL (1.6-2.6)
--- NOTE | 2024-08-26 11:56 | PC.NURSE ---
Pt to ED for 9/10 back pain x 1 week. A/O x 3, no apparent s/s of distress. #20 placed LFA and labs collected and sent.
[2024-08-26 12:00] VITALS: BP 137/74; PULSE 61; RESP 14; O2SAT 99
[2024-08-26 12:00] LABS: Alanine Aminotransferase 21 U/L (0-31); Albumin Level 4.9 g/dL (3.5-5.0); Alkaline Phosphatase 100 U/L (39-117); Anion Gap 15 (12-20); Aspartate Amino Transferase 27 U/L (5-31); Bilirubin Total 0.6 mg/dL (0.0-1.0); Blood Urea Nitrogen 14 mg/dL (9-16); Calcium 9.7 mg/dL (8.4-10.2); Carbon Dioxide 22 mmol/L (22-29); Chloride 109 mmol/L (96-108); Estimated Glomerular Filt Rate > 60; Glucose Random 96 mg/dL (60-115); HCG Quantitative < 2 mIU/mL; Potassium 4.2 mmol/L (3.3-5.1); Sodium 142 mmol/L (135-145); Troponin-I High Sensitivity < 2.7 ng/L (<3.5-17.0)
[2024-08-26 14:07] VITALS: BP 145/84; PULSE 65; RESP 14; O2SAT 99
[2024-08-26] MEDS: oxyCODONE HCl Immed Release 5 MG TABLET PO (14:41)
[2024-08-26 16:12] LABS: Appearance Urine Clear; Color Urine Yellow; Glucose Urine UA Negative (Negative); Leukocyte Esterase Urine Negative (Negative); Nitrite Urine Negative (Negative); Specific Gravity - Urine 1.025 (1.005-1.025); UMIC TRIGGER UACC YES; Urine Blood Trace (Negative); Urine Ketones Trace mg/dL (Negative); Urine Protein Trace mg/dL (Neg-Trace)
[2024-08-26 16:16] LABS: Bacteria Urine Trace (None Seen); WBC Urine 0-5 /HPF (0-5)
[2024-08-26 16:45] VITALS: BP 132/76; PULSE 63; RESP 14; O2SAT 98
[2024-08-26 16:58] VITALS: BP 121/77; PULSE 66; RESP 18; TEMP 36.6; O2SAT 97
== END 2024-08-26 17:00 | disposition home or self-care (01) ==
PROVIDERS: Physician Assistant Medical; Emergency Provider Emergency Medicine; PCP Internal Medicine
DX: M54.16 Radiculopathy, lumbar region (principal); I10 Essential (primary) hypertension; M54.50 Low back pain, unspecified; R51.9 Headache, unspecified; R42 Dizziness and giddiness; Z79.899 Other long term (current) drug therapy
CPT/HCPCS: 36415; 70450; 72100; 80053; 81001; 83735; 84484; 84702; 85025; 93005; 96374; 99284; 99285; J1885

== ENCOUNTER → 2024-08-26 10:43 | Outpatient (BNV) | payer OTHER, SELFPAY | PROVIDERS: Emergency Provider Emergency Medicine; PCP Internal Medicine; Visit Provider Internal Medicine Cardiovascular Disease | DX: R94.31 Abnormal electrocardiogram [ECG] [EKG] (principal); R42 Dizziness and giddiness | CPT/HCPCS: 93010 ==

== ENCOUNTER → 2024-08-26 10:59 | Outpatient (BNV) | payer OTHER, SELFPAY | PROVIDERS: Emergency Provider Emergency Medicine; PCP Internal Medicine; Visit Provider Radiology Diagnostic Radiology | DX: H53.9 Unspecified visual disturbance (principal); R51.9 Headache, unspecified; R03.0 Elevated blood-pressure reading, without diagnosis of hypertension; M54.50 Low back pain, unspecified | CPT/HCPCS: 70450; 72100 ==

== ENCOUNTER 2024-08-31 16:40 | Outpatient (AMB) | payer OTHER, SELFPAY ==
[2024-08-31 16:45] VITALS: BP 130/78; PULSE 112; TEMP 36.2; O2SAT 96; BMI 27.3
--- NOTE | 2024-08-31 16:45 | A.OFFPC_ITS ---
Vital Signs 08/31/24 16:45 Height 5 ft 6 in Weight 169 lb 2 oz BMI 27.3 BP 130/78 Blood Pressure Location Lt brachial Position Sitting Pulse 112 H Pulse Source Pulse Oximeter Temp 97.1 F Temp Source Temporal Artery Scan Pulse Oximetry (%) 96 Oxygen Delivery Method Room Air Intake Visit Reasons: High Blood pressure Intake Note: Patient stated that the 2.5 mg dose of amlodipine is not effectively controlling her blood pressure, so she took half of a 90 mg nifedipine tablet in an attempt to lower it. It is unclear where this prescription originated, as it was not prescribed by [facility]. 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 Pt was admitted at [facility] on 08/26 for an evaluation and treatment of Hypertension. She is non-compliant with her Hypertensive medication (Nifedipine). She was discharged home with Amlodopine 2.5 mg, patient took it one time and stopped because It does not work . This morning she took 2 tabs (90 mg = 180 mg) of old medication Nifedipine ( bottle). She does have chronic headaches for the past few days now. Reports low back pain - this is a chronic condition. A week ago she lifted a case of water at [employer] and aggravated her back pain. She did Physical therapy in the past with good relief. Curently has been using Flexeril, Lidocaine patches and Tylenol/Ibuprofen with minimal relief. Denies bowel or bladder symptoms. [facility] Medical History (Updated 08/31/24 @ 17:18 by Alia Perez NP) Essential hypertension No known health problems Surgical History No pertinent past surgical history Family History Mother HTN (hypertension) Father Diabetes 1.5, managed as type 1 Maternal Grandmother Colon cancer Breast cancer Social History Household Members: Children Housing: Condominium Alcohol intake: never Patient Tobacco Use Status: Never used Tobacco e-Cigarette/Vaping Use: Never Used Second Hand Smoke Exposure: No Substance Use Type: Marijuana Special nimco needs: No Agree to transfusion: Yes service: No Current occupational status: employed Gender identity: Female Cognitive needs: No Hearing needs: No Vision needs: No Female Reproductive History Menstrual Age of Menarche: 13 Questionnaire PHQ-9 Over the last 2 weeks, how often have you been bothered by any of the following problems? 1. Little interest or pleasure in doing things: not at all 2. Feeling down, depressed, or hopeless: not at all 3. Trouble falling or staying asleep, or sleeping too much: several days 4. Feeling tired or having little energy: several days 5. Poor appetite or overeating: not at all 6. Feeling bad about yourself - or that you are a failure or have let yourself or your family down: not at all 7. Trouble concentrating on things, such as reading the newspaper or watching television: not at all 8. Moving or speaking so slowly that other people could have noticed. Or the opposite - being so fidgety or restless that you have been moving around a lot more than usual: not at all 9. Thoughts that you would be better off or of hurting yourself in some way: not at all Total score: 2 62555 - PHQ-9 Billing: Yes Source: Developed by Drs. Sarmad Grande, Loren Hernandez, Kwame Neff and colleagues, with an educational pamela from [employer]. Thrive Questionnaire Date Thrive assessed: 08/31/24 I am a: Patient What is your living situation today?: I have a steady place to live Within the past 12 months, did the food you bought not last and you didn't have the money to get more?: Never true Within the past 12 months, did you worry whether your food would run out before you got money to buy more?: Never true Do you have trouble paying for medicines?: No Do you have trouble getting transportation to medical appointments?: No Do you have trouble paying your heating and electricity bill?: No Do you have trouble taking care of your child, family member or friend?: No Do you have trouble with day-to-day activities such as bathing, preparing meals, shopping, managing finances, etc.?: No Are you currently unemployed and looking for a job?: No Are you interested in more education?: No Please select the resources that you would like help with: None Currently or been in a relationship where the following occur: No concerns reported and I choose not to answer THRIVE Score: 0 AUDIT C Alcohol Use Questionnaire (AUDIT-C) 1. How often do you have a drink containing alcohol?: Never 3. How often do you have six or more drinks on one occasion?: Never Total Score: 0 MARCELINO-7 AMB Questionnaire MARCELINO-7 Date MARCELINO - 7 assessed: 08/31/24 Feeling nervous, anxious, or on edge: 0 = Not at all Not being able to stop or control worryin = Not at all Worrying too much about different things: 0 = Not at all Trouble relaxin = Not at all Being so restless that it is hard to sit still: 0 = Not at all Becoming easily annoyed or irritable: 0 = Not at all Feeling afraid as if something awful might happen: 0 = Not at all Total MARCELINO-7 score (0-4 normal; 5-9 mild; 10-14 moderate; 15-21 severe): 0 Source: Developed by Drs. Sarmad Grande, Loren Hernandez, Kwame Neff and colleagues, with an educational pamela from [employer]. MARCELINO-7 Assessment Billing MARCELINO-7 Assessment Tool: MARCELINO-7 Assessment 51033 Review of Systems Const All systems reviewed & are unremarkable except as noted in HPI and below Physical exam (Primary Care) Vital Signs: Last Vital Signs Temp 97.1 F 08/31/24 16:45 Pulse 112 H 08/31/24 16:45 BP 130/78 08/31/24 16:45 Pulse Ox 96 08/31/24 16:45 Oxygen Delivery Method Room Air 08/31/24 16:45 BMI result Body Mass Index 27.3 Tobacco/Smoking Status: Tobacco use Status Tobacco use date assessed 08/31/24 08/31/24 16:47 Patient Tobacco Use Status Never used Tobacco 08/31/24 16:47 e-Cigarette/Vaping Use Never Used 08/31/24 16:47 PHQ-9: PHQ-9 Score PHQ-9: Total score 2 08/31/24 17:01 Thrive Assessment: Date of Thrive Assessment Date Thrive assessed 08/31/24 08/31/24 16:47 Currently or been in a relationship where the following occur: No concerns reported and I choose not to answer Const General: no acute distress and anxious Nutritional Appearance: overweight Orientation/consciousness: patient oriented x3 Resp Effort & Inspection: normal respiratory effort and able to speak in complete sentences Auscultation: clear to auscultation bilaterally Cardio Heart sounds: S1 normal heart sound present and S2 normal heart sound present Back/Spine/Pelvis Back: back tenderness Thoracic/Lumbar Spine: pain with thoraco-lumbar ROM, thoraco-lumbar ROM limited with lateral flexion to the right and with lateral flexion to the left, thoraco- lumbar spasm and lumbar spinal tenderness Neuro General: patient oriented x3, gait normal and moves all extremities Psych Speech and movement: Normal speech and movement present Coding Level of Care Code Est Pt Level 4 (33505) Diagnoses Essential hypertension I10 Chronic right-sided low back pain with right-sided sciatica M54.41; G89.29 Chronicity: chronic Back pain laterality: right Sciatica presence: with sciatica Sciatica laterality: sciatica of right side Additional Codes MARCELINO-7 Assessment Billing - MARCELINO-7 Assessment Tool: MARCELINO-7 Assessment 24364 ([id number]) PHQ-9 - 50675 - PHQ-9 Billing: Yes ([id number]) Time Spent (min) 20 Assessment & Plan Assessment & Plan (1) Essential hypertension: Code(s): I10 - Essential (primary) hypertension Category: Medical Plan: Ordered Chlorthalidone 25 mg Advised to check BP in the mornings and keep LOG Will schedule Pt for BP check F/U in 1 week in CN RN Advised Lifestyle changes; weight loss, no salt, oily foods. (2) Low back pain: Code(s): M54.50 - Low back pain, unspecified Category: Medical Qualifiers: Chronicity: chronic Back pain laterality: right Sciatica presence: with sciatica Sciatica laterality: sciatica of right side Qualified Code(s): M54.41 - Lumbago with sciatica, right side; G89.29 - Other chronic pain Plan: Placed referral to PT Ice/Hot Acetaminophen for pain relief. Orders: Orders PT Evaluation and Treatment Today G89.29 - Other chronic pain, M54.41 - Lumbago with sciatica, right side Medications: New acetaminophen 1,000 mg (2 x 500 mg) PO Q6H PRN 60 caps 0RF pain G89.29 - Other chronic pain, M54.41 - Lumbago with sciatica, right side prednisone 20 mg PO DAILY 5 tabs 0RF G89.29 - Other chronic pain, M54.41 - Lumbago with sciatica, right side chlorthalidone 25 mg PO DAILY 30 tabs 0RF I10 - Essential (primary) hypertension Refilled lidocaine 5% (Lidoderm) leave on most painful area for up to 12 hrs 1 patch topical DAILY 15 ea 0RF G89.29 - Other chronic pain, M54.41 - Lumbago with sciatica, right side Discontinued acetaminophen (Tylenol Extra Strength) Discontinued Reason: Patient Completed Course 1,000 mg (2 x 500 mg) PO QID PRN 14 tabs 0RF fever or pain cyclobenzaprine Discontinued Reason: Duplicate 10 mg PO Q8H 14 tabs 0RF naproxen Discontinued Reason: Patient Completed Course 500 mg PO BID 7 days PRN 14 tabs 0RF pain amlodipine Discontinued Reason: Patient Refused 2.5 mg PO DAILY 30 days 30 tabs 0RF ibuprofen Discontinued Reason: Patient Completed Course 600 mg PO Q6H PRN 30 tabs 0RF fever or pain cyclobenzaprine Discontinued Reason: Patient Completed Course 5 mg PO Q8H PRN 9 tabs 0RF muscle pain sulindac Discontinued Reason: Patient Completed Course 200 mg PO BID 60 tabs 0RF naproxen Discontinued Reason: Patient Completed Course 500 mg PO BID 20 tabs 0RF
== END 2024-08-31 17:16 | disposition home or self-care (01) ==
LOC: HO.HMCH 16:40
PROVIDERS: PCP Internal Medicine; Visit Provider Nurse Practitioner Family
DX: I10 Essential (primary) hypertension (principal); M54.41 Lumbago with sciatica, right side; G89.29 Other chronic pain

== ENCOUNTER → 2024-08-31 16:40 | Outpatient (BNVA) | payer OTHER, SELFPAY | PROVIDERS: PCP Internal Medicine; Visit Provider Nurse Practitioner Family | DX: I10 Essential (primary) hypertension (principal); M54.41 Lumbago with sciatica, right side; G89.29 Other chronic pain | CPT/HCPCS: 96127; 99212 ==

== ENCOUNTER 2024-09-07 15:09 | Emergency (ER) | payer OTHER, SELFPAY ==
--- NOTE | 2024-09-07 15:12 | ECG_ITS ---
Test Reason : CP Blood Pressure : */* mmHG Vent. Rate : 76 BPM Atrial Rate : 76 BPM P-R Int : 136 ms QRS Dur : 82 ms QT Int : 390 ms P-R-T Axes : 34 46 15 degrees QTcB Int : 438 ms Normal sinus rhythm Normal ECG When compared with ECG of 26-Aug-2024 10:59, Criteria for Septal infarct are no longer Present Referred By: Generic ED Physician Electronically Signed By: JERRY DENG
[2024-09-07 15:26] VITALS: BP 150/96; PULSE 88; RESP 16; TEMP 36.9; O2SAT 99; BMI 27.4
--- NOTE | 2024-09-07 15:27 | ED_ITS ---
HPI - General Adult General Chief complaint: General Medical Stated complaint: SOB, CP, light headedness Time Seen by Provider: 09/07/24 16:29 Source: patient, RN notes reviewed and old records reviewed Mode of arrival: ambulatory Limitations: no limitations History of Present Illness ED Provider: Lauri CIFUENTES narrative: 38-year-old female with past medical history significant for hypertension presents for evaluation of dizziness and chest pain. Patient reports chest pain for the last 3 days. She reports that she has been increasing her hydrochlorothiazide 25 mg to 50 mg for the last 3 days. She also complains of dizziness Denies cough, shortness of breath, fevers, chills The patient was seen here 12 days ago on 08/26/2024 for hypotension. She has been a prescription for amlodipine 2.5 mg per reports that she did not fill it Denies any leg swelling Related Data Previous Rx's ?Medication ?Instructions ?Recorded acetaminophen 500 mg capsule 1,000 mg (2 x 500 mg) PO Q6H PRN 08/31/24 pain #60 caps chlorthalidone 25 mg tablet 25 mg PO DAILY #30 tabs lidocaine 5 % topical patch 1 patch topical DAILY #15 ea 08/31/24 (Lidoderm) prednisone 20 mg tablet 20 mg PO DAILY #5 tabs 08/31 potassium chloride 20 mEq oral 20 meq PO DAILY #5 ea 0 09/07/24 packet Allergies Allergy/AdvReac Type Severity Reaction Status Date / Time No Known Allergies (No Known Allergy Verified 09/07/24 15:27 Allergies*) Review of Systems 2 Constitutional: Constitutional: Denies body ache(s), Denies chills, Denies fever(s) and Denies headache(s) Eyes: Eyes: Denies blurry vision ENT: Reports dizziness, Denies dry mouth and Denies headache(s) Cardiovascular: Cardiovascular: Reports chest pain, Denies chest pain at rest, Denies chest pain with activity and Denies dyspnea on exertion Respiratory: Respiratory: Denies cough and Denies dyspnea on exertion Gastrointestinal: Gastrointestinal: Denies abdominal pain, Denies nausea and Denies vomiting Musculoskeletal: Musculoskeletal: Denies back pain Integumentary/Breasts: Skin/Breast: Denies rash Neurologic: Reports dizziness and Denies headache(s) Psychiatric: Psychiatric: Denies anxiety PMF Past Medical History Medical History (Updated 09/07/24 @ 18:02 by Min Carreon) Essential hypertension No known health problems Surgical History No pertinent past surgical history Family History Family History Mother HTN (hypertension) Father Diabetes 1.5, managed as type 1 Maternal Grandmother Colon cancer Breast cancer Social History Social History Household Members: Children Housing: Condominium Alcohol intake: never Patient Tobacco Use Status: Never used Tobacco Smoked in Last 30 Days: No e-Cigarette/Vaping Use: Never Used Second Hand Smoke Exposure: No Use of substances other than those prescribed or required for medical reasons: Yes Substance Use Type: Marijuana Substance Use Frequency: Daily Last Used Substance: Hours (ago) Any prior treatment program specific to substance use: No Special nimco needs: No Agree to transfusion: Yes Advance Directives: No Advance Directives Information Provided: Yes Do you have a plan to hurt others: No Plan service: No Current occupational status: employed Gender identity: Female Cognitive needs: No Hearing needs: No Vision needs: No Physical Exam ED Vital Signs: Vital Signs - 24 hr 09/07/24 15:26 09/07/24 16:39 Temperature 98.5 F 98 F Pulse Rate 88 79 Respiratory Rate 16 16 Blood Pressure 150/96 H 138/94 H Pulse Oximetry 99 Oxygen Delivery Method Room Air Room Air BMI result Body Mass Index 27.4 Const General: healthy appearing, comfortable, no acute distress, alert and awake Nutritional Appearance: well nourished Orientation/consciousness: patient oriented x3 HENMT Head: Yes normocephalic and Yes atraumatic Eyes Eyelids: Yes eyelids normal Conjunctivae: conjunctivae normal Sclerae: sclerae normal Corneas: corneas normal Pupils: Equal, round and reactive pupils present EOM: EOMs intact bilaterally Neck Neck: Yes full ROM Resp Effort & Inspection: normal respiratory effort, able to speak in complete sentences and not labored Cardio Rate: regular rate Rhythm: regular rhythm GI Inspection: No distended Palpation (GI): Soft to palpation, not firm, nontender, no guarding and not rigid Skin General skin exam: elasticity normal Neuro General: patient oriented x3 Cranial nerves: Yes Equal, round and reactive pupils present and Yes Bilaterally intact EOM present Cognition (Neuro): normal cognition Extrem Other: Moving all extremities well without any obvious deformities Course Course Course Narrative: 09/07/24 1528 GIOVANNA Vogt This is a Rapid Medical Examination (RME) performed by Matt Ricks PA-C in triage. Full HPI, ROS, assessment and treatment plan per primary provider in the Main ED. Hx: 38 yo F hx of chronic low back pain and HTN here with elevated BP readings and headache. states her amlodipine was recently increased. Plan: ekg, labs Medications Administered Discontinued Medications Generic Name Dose Route Start Last Admin Trade Name Freq PRN Reason Stop Dose Admin Potassium Chloride 60 meq 09/07/24 16:50 09/07/24 17:24 Potassium Chloride Er 20 Meq Tab.Er.Prt PO 09/07/24 16:51 60 meq ONCE ONE Administration Medical Decision Making Medical Decision Making MDM Narrative: 38-year-old female with a past medical history as above presents for evaluation of chest pain and dizziness. She has been increasing her hydrochlorothiazide on her own. Blood pressure stable, EKG is nonischemic. Potassium is noted to be low at 3.2 which is likely related to her increased hydrochlorothiazide. I discussed this with the patient that is important take all your medications as prescribed only. I also encouraged the patient to check her blood pressure once the morning, once a night but not multiple times throughout today. Plan for troponin as this was not yet completed. She is PERC negative Differential Diagnosis Differential Diagnoses: The differential diagnosis associated with the presentation includes Chest pain Anxiety Chest wall pain Hypertension Medication noncompliance ACS less likely Lab Data [facility] Lab Attestation statement: I reviewed the patient's lab results. Wane with the necrosis or anemia. Normal platelet count. Potassium is low at 3.2. No other electrolyte abnormalities. BUN is slightly elevated which is also likely due to increased hydrochlorothiazide. 09/07/24 15:40 09/07/24 15:40 Labs: Lab Results 09/07/24 09/07/24 Range/Units 15:40 16:54 WBC 9.3 (4.8-10.8) X10*3/uL RBC 5.08 (4.20-5.50) X10*6/uL Hgb 15.2 (12.0-16.0) g/dl Hct 43.4 (37.0-47.0) % MCV 85.4 (80.0-98.0) fL MCH 29.9 (27.0-33.0) pg MCHC 35.0 (31.0-35.0) g/dl RDW 11.6 (11.0-16.0) % Plt Count 254 (160-400) X10*3/uL MPV 12.0 (9.4-12.3) fL Immature Gran % (Auto) 0.2 (0.0-0.4) % Neut % (Auto) 62.7 (45-73) % Lymph % (Auto) 26.0 (20-40) % [place] % (Auto) 9.6 (2-11) % Eos % (Auto) 0.9 (0-4) % Baso % (Auto) 0.6 (0-2) % Lymph # (Auto) 2.4 (1.2-4.9) X10*3/uL [place] # (Auto) 0.9 (0.1-1.2) X10*3/uL Eos # (Auto) 0.1 (0.0-0.4) X10*3/uL Baso # (Auto) 0.1 (0.0-0.2) X10*3/uL Abs Immat Gran (auto) 0.02 (0.00-0.03) X10*3/uL Absolute Neuts (auto) 5.8 (2.0-8.3) x10*3/uL Absolute Nucleated RBC 0.000 (0.0-0.012) X10*3/uL Nucleated RBC % (auto) 0.0 (0.0-0.2) /100WBC Sodium 139 (135-145) mmol/L Potassium 3.2 L D (3.3-5.1) mmol/L Chloride 98 (96-108) mmol/L Carbon Dioxide 28 (22-29) mmol/L Anion Gap 16 (12-20) BUN 19 H (9-16) mg/dL Creatinine 0.91 (0.5-1.4) mg/dL Estim Creat Clear Calc 87.9 Estimated GFR > 60 Random Glucose 100 (60-115) mg/dL Calcium 10.2 (8.4-10.2) mg/dL Magnesium 2.2 (1.6-2.6) mg/dL Total Bilirubin 0.3 (0.0-1.0) mg/dL AST 32 H (5-31) U/L ALT 37 H (0-31) U/L Alkaline Phosphatase 102 (39-117) U/L Troponin I High Sens < 2.7 (<3.5-17.0) ng/L Total Protein 8.4 H (6.5-8.0) g/dL Albumin 5.1 H (3.5-5.0) g/dL Independent Interpretation I performed an independent interpretation of an: EKG (Normal sinus rhythm with a rate of [address] segment elevation SD) Discharge Plan Discharge Clinical Impression: Chest pain, Acute hypokalemia Patient Disposition: Home, Self-Care Instructions: Chest Pain (ED) Additional Instructions: Your workup in the ER today was reassuring. Your blood pressure was within normal limits. Your potassium was low at 3.2 and likely a side effect of increasing your hydrochlorothiazide. You should only take the hydrochlorothiazide as prescribed, 25 mg daily Melena take potassium daily for the next 5 days and have your blood work rechecked with your primary doctor Here Prescriptions: New potassium chloride 20 mEq packet 20 meq PO DAILY Qty: 5 0RF No Action prednisone 20 mg tablet 20 mg PO DAILY Qty: 5 0RF acetaminophen 500 mg capsule 1,000 mg PO Q6H PRN (Reason: pain) Qty: 60 0RF chlorthalidone 25 mg tablet 25 mg PO DAILY Qty: 30 0RF lidocaine [Lidoderm] 5 % adhesive patch,medicated 1 patch topical DAILY Qty: 15 0RF Rx Instructions: leave on most painful area for up to 12 hrs Print Language: Tamazight
[2024-09-07 15:43] LABS: MANUAL DIFF FLAG NO
[2024-09-07 15:50] LABS: Basophils Absolute Auto 0.1 X10*3/uL (0.0-0.2); Basophils Percent Auto 0.6 % (0-2); Eosinophils Absolute Auto 0.1 X10*3/uL (0.0-0.4); Eosinophils Percent Auto 0.9 % (0-4); Hematocrit 43.4 % (37.0-47.0); Hemoglobin 15.2 g/dl (12.0-16.0); Imm Gran Abs Auto 0.02 X10*3/uL (0.00-0.03); Imm Gran Pct Auto 0.2 % (0.0-0.4); Lymphocytes Absolute Auto 2.4 X10*3/uL (1.2-4.9); Mean Corpuscular Hemoglobin 29.9 pg (27.0-33.0); Mean Corpuscular Volume 85.4 fL (80.0-98.0); Monocytes Absolute Auto 0.9 X10*3/uL (0.1-1.2); Monocytes Percent Auto 9.6 % (2-11); Neutrophils Absolute Auto 5.8 x10*3/uL (2.0-8.3); Neutrophils Percent Auto 62.7 % (45-73); Platelet Count 254 X10*3/uL (160-400); Red Blood Count 5.08 X10*6/uL (4.20-5.50); Red Cell Distribution Width 11.6 % (11.0-16.0); White Blood Count 9.3 X10*3/uL (4.8-10.8)
[2024-09-07 16:00] LABS: Alanine Aminotransferase 37 U/L (0-31); Albumin Level 5.1 g/dL (3.5-5.0); Alkaline Phosphatase 102 U/L (39-117); Anion Gap 16 (12-20); Aspartate Amino Transferase 32 U/L (5-31); Bilirubin Total 0.3 mg/dL (0.0-1.0); Blood Urea Nitrogen 19 mg/dL (9-16); Calcium 10.2 mg/dL (8.4-10.2); Carbon Dioxide 28 mmol/L (22-29); Chloride 98 mmol/L (96-108); Creatinine Clr Calc Pharmacy 87.9; Estimated Glomerular Filt Rate > 60; Glucose Random 100 mg/dL (60-115); Magnesium 2.2 mg/dL (1.6-2.6); Potassium 3.2 mmol/L (3.3-5.1); Sodium 139 mmol/L (135-145); Total Protein 8.4 g/dL (6.5-8.0)
[2024-09-07 16:39] VITALS: BP 138/94; PULSE 79; RESP 16; TEMP 36.6
[2024-09-07] MEDS: Potassium Chloride ER 20 MEQ TAB.ER.PRT 60 MEQ PO (17:24)
[2024-09-07 17:26] LABS: Troponin-I High Sensitivity < 2.7 ng/L (<3.5-17.0)
[2024-09-07 18:00] VITALS: BP 154/95; PULSE 77; RESP 16; TEMP 36.7; O2SAT 98
[2024-09-07 18:06] VITALS: BP 138/94; PULSE 79; RESP 16; TEMP 36.6
== END 2024-09-07 18:23 | disposition home or self-care (01) ==
PROVIDERS: Physician Assistant; Physician Assistant Medical; Emergency Provider Emergency Medicine Emergency Medical Services
DX: R07.9 Chest pain, unspecified (principal); E87.6 Hypokalemia; R42 Dizziness and giddiness; I10 Essential (primary) hypertension; Z79.899 Other long term (current) drug therapy
CPT/HCPCS: 36415; 80053; 83735; 84484; 85025; 93005; 99283; 99285

== ENCOUNTER → 2024-09-07 15:12 | Outpatient (BNV) | payer OTHER, SELFPAY | PROVIDERS: Emergency Provider Emergency Medicine Emergency Medical Services; Visit Provider Internal Medicine | DX: R07.9 Chest pain, unspecified (principal) | CPT/HCPCS: 93010 ==

== ENCOUNTER 2024-11-05 14:02 | Outpatient (AMB) | payer OTHER, SELFPAY ==
[2024-11-05 14:16] VITALS: BP 116/90; PULSE 71; O2SAT 97; BMI 28.4
--- NOTE | 2024-11-05 14:16 | MHC.PC.OV ---
Vital Signs 11/05/24 14:16 11/05/24 14:40 Height 5 ft 6 in Weight 176 lb 2 oz BMI 28.4 BP 116/90 H 122/88 Blood Pressure Location Lt brachial Lt brachial Position Sitting Sitting Pulse 71 Pulse Source Pulse Oximeter Pulse Oximetry (%) 97 Intake Visit Reasons: PHYSICAL Leaf Sorter Required: No Accompanied by: Son Allergies No Known Allergies (No Known Allergies*) Allergy (Verified 11/05/24 14:21) Medication List - Last Reconciled 11/05/24 by Kelsey Viiera PA-C chlorthalidone 25 mg PO DAILY Tobacco use date assessed: 11/05/24 Dental Screening Dental Screen Date: 11/05/24 Did you have a dental visit in the last 12 months?: Yes Did you have a dental problem in the last 6 months where you did not have access to dental care?: No Was dental information given to patient?: Patient has dentist HPI PHYSICAL HPI Details 39-year-old female with past medical history of hypertension and obesity last seen 09/05 coming in for annual exam. In review of the notes, patient was seen in [facility] 09/07/2024 for dizziness and chest pain potassium was mildly low advised to continue on prescription medications as prescribed. Presenting with hypertension, weight management, anxiety, and insomnia. The patient has been taking chlorthalidone once daily, which has effectively lowered her blood pressure. The patient reports struggling with anxiety and has not seen a therapist in two years due to changes in therapists. She experiences difficulty sleeping and has previously used trazodone, which was effective. The patient is attempting to lose weight but finds it challenging, with weight fluctuations noted. She has tried weight management programs without success and is considering weight loss injections. eye doctor: does have glasses Mammogram: ordered today Vaccinations: UTD Pap smear: following with flare stitcher [facility] Medical History Essential hypertension No known health problems Surgical History No pertinent past surgical history Family History Mother HTN (hypertension) Father Diabetes 1.5, managed as type 1 Maternal Grandmother Colon cancer Breast cancer Social History Household Members: Children Housing: Condominium Alcohol intake: never Patient Tobacco Use Status: Current someday Tobacco user e-Cigarette/Vaping Use: Never Used Second Hand Smoke Exposure: No Substance Use Type: Marijuana Special nimco needs: No Agree to transfusion: Yes service: No Current occupational status: employed Gender identity: Female Cognitive needs: No Hearing needs: No Vision needs: No Female Reproductive History Menstrual Age of Menarche: 13 Questionnaire PHQ-9 Over the last 2 weeks, how often have you been bothered by any of the following problems? 1. Little interest or pleasure in doing things: not at all 2. Feeling down, depressed, or hopeless: not at all 3. Trouble falling or staying asleep, or sleeping too much: several days 4. Feeling tired or having little energy: several days 5. Poor appetite or overeating: not at all 6. Feeling bad about yourself - or that you are a failure or have let yourself or your family down: not at all 7. Trouble concentrating on things, such as reading the newspaper or watching television: not at all 8. Moving or speaking so slowly that other people could have noticed. Or the opposite - being so fidgety or restless that you have been moving around a lot more than usual: not at all 9. Thoughts that you would be better off or of hurting yourself in some way: not at all Total score: 2 Depression Screening Interpretation: Negative Depression Screening Done: Yes Source: Developed by Drs. Sarmad Grande, Loren Hernandez, Kwame Neff and colleagues, with an educational pamela from [employer]. Thrive Questionnaire Date Thrive assessed: 08/31/24 I am a: Patient What is your living situation today?: I have a steady place to live Within the past 12 months, did the food you bought not last and you didn't have the money to get more?: Never true Within the past 12 months, did you worry whether your food would run out before you got money to buy more?: Never true Do you have trouble paying for medicines?: No Do you have trouble getting transportation to medical appointments?: No Do you have trouble paying your heating and electricity bill?: No Do you have trouble taking care of your child, family member or friend?: No Do you have trouble with day-to-day activities such as bathing, preparing meals, shopping, managing finances, etc.?: No Are you currently unemployed and looking for a job?: No Are you interested in more education?: No Please select the resources that you would like help with: None THRIVE Score: 0 AUDIT C Alcohol Use Questionnaire (AUDIT-C) 1. How often do you have a drink containing alcohol?: Never 3. How often do you have six or more drinks on one occasion?: Never Total Score: 0 MARCELINO-7 AMB Questionnaire MARCELINO-7 Date MARCELINO - 7 assessed: 08/31/24 Feeling nervous, anxious, or on edge: 0 = Not at all Not being able to stop or control worryin = Not at all Worrying too much about different things: 0 = Not at all Trouble relaxin = Not at all Being so restless that it is hard to sit still: 0 = Not at all Becoming easily annoyed or irritable: 0 = Not at all Feeling afraid as if something awful might happen: 0 = Not at all Total MARCELINO-7 score (0-4 normal; 5-9 mild; 10-14 moderate; 15-21 severe): 0 Source: Developed by Drs. Sarmad Grande, Loren Hernandez, Kwame Neff and colleagues, with an educational pamela from [employer]. Review of Systems Const Denies body aches, Denies fatigue, Denies fever(s), Denies frequent falls, Denies headache(s) and Denies weakness Eyes Reports no additional complaints and Denies change in vision ENT Denies dysphagia, Denies dizziness, Denies facial pain, Denies headache(s), Denies nasal congestion and Denies odynophagia Card Denies chest pain, Denies syncope, Denies irregular heart rhythm, Denies leg edema, Denies lightheadedness and Denies dyspnea Resp Denies cough and Denies dyspnea GI Denies abdominal pain, Denies constipation, Denies dysphagia, Denies dyspepsia, Reports diarrhea (occasional), Denies nausea, Denies odynophagia and Denies vomiting Denies urinary frequency, Denies dysuria, Denies urinary hesitancy and Denies urinary urgency Musc Reports back pain and Denies myalgias Skin/Breast Reports system reviewed and no additional complaints, except as documented Neuro Denies dizziness, Denies syncope, Denies frequent falls, Denies headache(s) and Denies weakness Psych Reports no additional complaints Endo Denies fatigue Physical exam (Primary Care) Vital Signs: Last Vital Signs Pulse 71 11/05/24 14:16 BP 122/88 11/05/24 14:40 Pulse Ox 97 11/05/24 14:16 BMI result Body Mass Index 28.4 Tobacco/Smoking Status: Tobacco use Status Tobacco use date assessed 11/05/24 11/05/24 14:20 Patient Tobacco Use Status Current someday Tobacco 11/05/24 14:26 e-Cigarette/Vaping Use Never Used 11/05/24 14:20 PHQ-9: PHQ-9 Score PHQ-9: Total score 2 11/05/24 14:37 Depression Screening Interpretation: Negative Thrive Assessment: Date of Thrive Assessment Date Thrive assessed 08/31/24 11/05/24 14:20 Const General: cooperative, healthy appearing, comfortable and no acute distress Orientation/consciousness: patient oriented x3 HENMT Head: Yes normocephalic Ears: hearing grossly normal bilaterally, external ears normal, TM's normal bilaterally and EAC's normal General nose exam: Normal external nose present Face and sinus: Yes normal facial exam and Yes sinuses nontender Mouth: Normal oral and palatal mucosa present and tongue normal Throat: Yes posterior oropharynx normal Eyes General: appearance normal, both eyes and all related structures Conjunctivae: conjunctivae normal Pupils: Equal, round and reactive pupils present EOM: EOMs intact bilaterally and No Nystagmus present Neck Neck: Yes normal visual inspection, Yes full ROM and Yes no lymphadenopathy Chest Chest palpation & inspection: normal inspection of the chest Resp Effort & Inspection: normal respiratory effort Auscultation: clear to auscultation bilaterally, no crackles, no rales, no rhonchi, no wheezes and breath sounds present Cardio Rate: regular rate Rhythm: regular rhythm Peripheral pulses: radial pulses present and dorsalis pedis present GI Inspection: Yes normal to inspection and No Abdominal wall edema Palpation (GI): Soft to palpation, not firm and nontender Auscultation: normal bowel sounds Rectal Exam - Female: deferred General: Yes no CVA tenderness Back/Spine/Pelvis Back: no CVA tenderness Skin General skin exam: no rashes or lesions noted Neuro General: patient oriented x3 Cranial nerves: Yes Equal, round and reactive pupils present, Yes Midline tongue present, Yes Ability to bilaterally elevate shoulders present and No Nystagmus present Gait exam (Neuro): Normal gait present Extrem General: Yes normal to inspection, Yes full ROM, No no pedal edema and No edema Psych Speech and movement: Normal speech and movement present Affect: normal affect Insight: Good insight present (Psych) Judgement: Good judgement present (Psych) Coding Level of Care Code Est Pt Prev Care [id number]([id number]) Diagnoses Essential hypertension I10 Obesity E66.9 Cervical cancer screening Z12.4 Physical exam Z00.00 Anxiety F41.9 Joint stiffness M25.60 Chronic right-sided low back pain with right-sided sciatica M54.41; G89.29 Chronicity: chronic Back pain laterality: right Sciatica presence: with sciatica Sciatica laterality: sciatica of right side Assessment & Plan Assessment & Plan (1) Essential hypertension: Code(s): I10 - Essential (primary) hypertension Category: Medical Plan: Continue on current blood pressure medication. Avoid salt intake and encourage healthy diet and regular exercise. (2) Obesity: Code(s): E66.9 - Obesity, unspecified Category: Medical Plan: Healthy diet and regular exercise is encouraged. Patient was counseled today on the risks and benefits of GLP-1 injections as well as the dosing schedule. She has no family history or personal history of thyroid disease and no gallbladder disease. Discussed with the patient the potential GI side effects of this medication. Plan to have repeat blood work after one month of therapy to monitor kidney and liver function before increasing the dose of this medication. Follow up in 2 months for a weight check. (3) Cervical cancer screening: Comment: 09/15/21 Pap = negative w negative HPV. Code(s): Z12.4 - Encounter for screening for malignant neoplasm of cervix Category: Medical Plan: Continue to follow with gynecology. She may be due for a Pap smear and referral was placed today (4) Physical exam: Code(s): Z00.00 - Encounter for general adult medical examination without abnormal findings Category: Medical Plan: Patient is up-to-date on all recommended vaccinations for her age. She is due for mammogram and Pap smear which have been placed today. Blood work is not up-to-date and I did place new orders. Plan to follow up in 3 months or sooner as needed. Healthy diet and regular exercise is encouraged. (5) Anxiety: Code(s): F41.9 - Anxiety disorder, unspecified Category: Medical Plan: Agrees to go back to [facility] for counseling. She mentions the anxiety we will occasionally cause difficulty sleeping due to racing thoughts. Plan to start on trazodone to be used nightly or as needed for management of anxiety and sleep. Discussed with the patient if she is looking for to manage the anxiety needs to be taking consistently. (6) Joint stiffness: Code(s): M25.60 - Stiffness of unspecified joint, not elsewhere classified Category: Medical Plan: Plan to ordered for updated blood work including rheumatoid factor for further evaluation. Recommend gentle stretching (7) Low back pain: Code(s): M54.50 - Low back pain, unspecified Category: Medical Qualifiers: Chronicity: chronic Back pain laterality: right Sciatica presence: with sciatica Sciatica laterality: sciatica of right side Qualified Code(s): M54.41 - Lumbago with sciatica, right side; G89.29 - Other chronic pain Plan: Patient to use baclofen as needed for pain. She may also use heating pads, Tylenol and ibuprofen Plan This note was constructed using voice recognition software. While every effort has been made to ensure accuracy and environmental protection forester, still areas may have been included sometimes these areas may affect the content or meeting of the given symptoms. Total time spent caring for the patient today was 30 minutes. This includes time spent before the visit reviewing the chart, time spent during the visit, and time spent after the visit and documentation. Patient was informed and verbally consented to the use of an ambient scribe for clinic note documentation during this visit. Orders: Orders Vitamin B12 and Folate Today I10 - Essential (primary) hypertension, Z13.21 - Encounter for screening for nutritional disorder Hemoglobin A1c Today E11.65 - Type 2 diabetes mellitus with hyperglycemia, Z13.1 - Encounter for screening for diabetes mellitus MARY LOU Reflex Titer and Pattern Today M25.60 - Stiffness of unspecified joint, not elsewhere classified MM tomosynthesis screening BI Today Z12.31 - Encounter for screening mammogram for malignant neoplasm of breast Lipid Panel Today Z13.1 - Encounter for screening for diabetes mellitus, Z13.220 - Encounter for screening for lipoid disorders Comprehensive Met. Panel Today I10 - Essential (primary) hypertension, Z00.00 - Encounter for general adult medical examination without abnormal findings Vitamin D 25-OH Total Today I10 - Essential (primary) hypertension, Z13.21 - Encounter for screening for nutritional disorder TSH reflex Free T4 Today I10 - Essential (primary) hypertension, Z13.29 - Encounter for screening for other suspected endocrine disorder Rheumatoid Factor Today M25.60 - Stiffness of unspecified joint, not elsewhere classified Referrals [facility]TERN[facility] Referral Z12.4 - Encounter for screening for malignant neoplasm of cervix Medications: New tirzepatide (weight loss) (Zepbound) for 4 weeks 2.5 mg (0.5 mL) subcut QWEEK 2 mL 0RF trazodone 50 mg PO BEDTIME 90 tabs 0RF baclofen 5 mg PO BID PRN 60 tabs 0RF muscle spasm fluticasone propionate 50 mcg/actuation (Flonase Allergy Relief) administer into each nostril 1 spray intranasal DAILY 16 grams 0RF
[2024-11-05 14:40] VITALS: BP 122/88
--- OUTSIDE RECORDS SUMMARY | 2024-11-05 15:26 | XMS_ITS | Clinical Summary ---
Author Organization [facility] ity Address [address] [place] [address] Care Team Providers Care Staff Antisubmarine Officer Name Role Phone Aniya Youssef MD Primary Care Provider [phone] Social History Tobacco Use Types Packs/Day Years Used Date Smoking Tobacco: Never Assessed Comments Unknown Sex and Gender Information Value Date Recorded Sex Assigned at Not on file Legal Sex Female 4:36 AM EST Gender Identity Not on file Sexual Orientation Not on file Plan of Treatment Health Maintenance Due Date Last Done Comments DTaP,Tdap,and Td Vaccines (1 - Tdap) 2004 Hepatitis B Vaccines (1 of 3 - 19+ 3-dose series) 2004 Cervical Cancer Screening: P ap Smear 2006 HPV Vaccines (2 - 3-dose series) 10/29/2008 10/02/19 09 COVID-19 Vaccine ( - 2023-2 5 season) 2023 Depression Screening 03/14/2024 Influenza Vaccine (#1) 2024 HIB Vaccines Aged Out No longer eligi ble based on patient's age to complete this topic Hepatitis A Vaccines Aged Out No long er eligible based on patient's age to complete this topic IPV Vaccines Aged Out No longer eligi ble based on patient's age to complete this topic MMR Vaccines Aged Out No longer eligi ble based on patient's age to complete this topic Meningococcal ACWY Vaccine Aged Out N o longer eligible based on patient's age to complete this topic Meningococcal B Vaccine Aged Out No l onger eligible based on patient's age to complete this topic Pneumococcal Vaccine: Pediat rics (0 to 5 Years) and At-Risk Patients (6 to 49 Years) Aged Out No longer eligi ble based on patient's age to complete this topic RSV Immunization Patients Un new 20 months Aged Out No longer eligible b ased on patient's age to complete this topic Varicella Vaccines Aged Out No longer eligible based on patient's age to complete this topic Care Teams Staff Antisubmarine Officer Relationship Specialty Start Date End Date Aniya Youssef MD [address] [place] [address] , [address] [facility] DUONG Munroe PCP - General Internal Medicine 07/22/17
--- OUTSIDE RECORDS SUMMARY | 2024-11-05 15:26 | XMS_ITS | Clinical Summary ---
Author Organization [employer] Address [address] [facility] [address] [place] [address] Care Team Providers Care [employer] Member Name Role Phone Unavailable Primary Care Provider Unavailabl e Immunizations Immunization Administration Dates Next Due Pfizer Covid-19 Vaccine 12+ Bivalent 05/20/2022 Social History Tobacco Use Types Packs/Day Years Used Date Smoking Tobacco: Never Assessed Comments Unknown Sex and Gender Information Value Date Recorded Sex Assigned at Female 05/20/2022 12:42 PM EST Legal Sex Female 12:39 PM EST Gender Identity Female 05/20/2022 12:42 PM EST Sexual Orientation Straight 05/20/2022 12 :43 PM EST Plan of Treatment Health Maintenance Due Date Last Done Comments Depression Screening 1985 HIV Screening 1985 Lipid Panel 1985 SDOH Screening 1985 Disability Screening 1985 Alcohol/Substance Use Screening 1997 Tobacco Screening 1997 Family Planning (PISQ) 2000 Hepatitis C Screening 09/11/2003 Hepatitis B Vaccines (1 of 3 - 19+ 3-dose series) 2004 Pap Smear 2006 HPV Vaccines (2 - 3-dose series) 10/29/2008 10/01/2008 Cervical Cancer Screening 09/11/2015 HPV/Cotest 09/11/2015 COVID-19 Vaccine (4 - 2023-2 5 season) 2023 05/20/2022, 08/18/2020, 07/28/2020 Influenza Vaccine (#1) 2024 DTaP/Tdap/Td Vaccines (4 - T d or Tdap) 11/25/2031 11/24/2021, 07/05/2017, 08/02/2014 Zoster Vaccines (1 of 2) 09/11/2035 RSV Patients and Patients Aged 60 years or older (1 - 1-dose 75+ series) 2060 HIB Vaccines Aged Out No longer eligi [...] patient's age to complete this topic Meningococcal Vaccine Aged Out No nini john eligible based on patient's age to complete this topic Pneumococcal Vaccine: Pediatrics (0 to 5 Years) and At-Risk Patients (6 to 49) Years Aged Out No longer eligible b ased on patient's age to complete this topic RSV under 20 months Aged Out No longe r eligible based on patient's age to complete this topic Rotavirus Vaccines Aged Out No longer eligible based on patient's age to complete this topic Insurance [facility]
== END 2024-11-05 14:52 | disposition home or self-care (01) ==
DX: Z00.00 Encounter for general adult medical examination without abnormal findings (principal); I10 Essential (primary) hypertension; E66.9 Obesity, unspecified; Z68.28 Body mass index [BMI] 28.0-28.9, adult; F41.9 Anxiety disorder, unspecified; M25.60 Stiffness of unspecified joint, not elsewhere classified; M54.41 Lumbago with sciatica, right side; G89.29 Other chronic pain

== ENCOUNTER → 2024-11-05 14:02 | Outpatient (BNVA) | payer OTHER, SELFPAY | PROVIDERS: PCP Internal Medicine | DX: Z00.00 Encounter for general adult medical examination without abnormal findings (principal); F41.9 Anxiety disorder, unspecified; I10 Essential (primary) hypertension; E66.9 Obesity, unspecified; G47.00 Insomnia, unspecified; M25.60 Stiffness of unspecified joint, not elsewhere classified; M54.41 Lumbago with sciatica, right side; G89.29 Other chronic pain | CPT/HCPCS: 99395 ==

== ENCOUNTER 2024-11-06 15:47 | Emergency (ER) | payer OTHER, SELFPAY ==
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
[2024-11-06 16:41] VITALS: BP 142/75; PULSE 78; RESP 18; TEMP 36.7; O2SAT 99; BMI 28.4
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
--- OUTSIDE RECORDS SUMMARY | 2024-11-06 17:12 | XMS_ITS | Clinical Summary ---
Author Organization [employer] Address [address] [facility] [address] [place] [address] Care Team Providers Care Automatic Glove Turner And Former Name Role Phone Unavailable Primary Care Provider [...] patient's age to complete this topic Insurance [facility]
--- OUTSIDE RECORDS SUMMARY | 2024-11-06 17:12 | XMS_ITS | Clinical Summary ---
[facility] Organization [facility] Address [address] [place] [address] Care Team Providers Care Donor Services Coordinator Name Role Phone nAiya Youssef MD Primary Care Provider [phone] Social History Tobacco Use Types Packs/Day Years [...] age to complete this topic Care Teams Donor Services Coordinator Relationship Specialty Start Date End Date Aniya Youssef MD [address] [place] [address] , [address] [facility] D/B/A: [facility] DUONG Munroe PCP - General Internal Medicine 07/22/17
[2024-11-06 17:21] LABS: MANUAL DIFF FLAG NO
[2024-11-06 17:24] LABS: Hematocrit 37.5 % (37.0-47.0); Hemoglobin 12.5 g/dl (12.0-16.0); Imm Gran Abs Auto 0.04 X10*3/uL (0.00-0.03); Imm Gran Pct Auto 0.4 % (0.0-0.4); Lymphocytes Absolute Auto 2.0 X10*3/uL (1.2-4.9); Mean Corpuscular HGB Conc 33.3 g/dl (31.0-35.0); Mean Corpuscular Hemoglobin 29.8 pg (27.0-33.0); Mean Corpuscular Volume 89.5 fL (80.0-98.0); NRBC Abs Auto 0.000 X10*3/uL (0.0-0.012); NRBC Pct Auto 0.0 /100WBC (0.0-0.2); Platelet Count 225 X10*3/uL (160-400); Red Blood Count 4.19 X10*6/uL (4.20-5.50); White Blood Count 9.8 X10*3/uL (4.8-10.8)
[2024-11-06 17:30] LABS: INTERNATIONAL NORM RATIO 1.0 (0.9-1.1); Prothrombin Time 11.5 SEC (10.9-12.4)
[2024-11-06 17:33] LABS: Partial Thromboplastin Time 32.8 SEC (26.7-34.1)
[2024-11-06 17:35] LABS: Alanine Aminotransferase 33 U/L (0-31); Albumin Level 4.7 g/dL (3.5-5.0); Alkaline Phosphatase 83 U/L (39-117); Anion Gap 12 (12-20); Aspartate Amino Transferase 28 U/L (5-31); Blood Urea Nitrogen 13 mg/dL (9-16); Calcium 9.5 mg/dL (8.4-10.2); Carbon Dioxide 25 mmol/L (22-29); Chloride 108 mmol/L (96-108); Creatinine Clr Calc Pharmacy 110.2; Estimated Glomerular Filt Rate > 60; Potassium 3.5 mmol/L (3.3-5.1); Sodium 141 mmol/L (135-145); Total Protein 7.5 g/dL (6.5-8.0)
[2024-11-06 17:44] LABS: Troponin-I High Sensitivity < 2.7 ng/L (<3.5-17.0)
[2024-11-06 18:42] VITALS: BP 126/74; PULSE 80; RESP 16; O2SAT 99
[2024-11-06 19:52] VITALS: BP 131/79; PULSE 68; RESP 18; TEMP 37; O2SAT 98
--- NOTE | 2024-11-06 20:58 | PC.NURSE ---
at approx 1930 pt was educated on plan awaiting xr results and eval by ed provider. pt verbalized understanding and sitting in [address] with friend/family having snacks. pt at this time states she needs her d/c paperwork and needs to leave. educated pt there is no discharge paperwork as she has not been seen yet. pt became verbally aggressive to this RN and states you can leave now. charge poster made aware and pt was noted to leave department with family. pt is axox4 ambulatory with steady gait.
== END 2024-11-06 21:01 | disposition left against medical advice (07) ==
PROVIDERS: Physician Assistant; Emergency Provider Emergency Medicine
DX: R07.9 Chest pain, unspecified (principal); M25.519 Pain in unspecified shoulder; I10 Essential (primary) hypertension; F17.210 Nicotine dependence, cigarettes, uncomplicated
CPT/HCPCS: 36415; 71046; 80053; 84484; 85025; 85610; 85730; 93005; 99284

== ENCOUNTER → 2024-11-06 16:20 | Outpatient (BNV) | payer OTHER, SELFPAY | PROVIDERS: Emergency Provider Emergency Medicine; Visit Provider Radiology Diagnostic Radiology | DX: R07.9 Chest pain, unspecified (principal); V89.2XXA Person injured in unspecified motor-vehicle accident, traffic, initial encounter | CPT/HCPCS: 71046 ==

== ENCOUNTER → 2024-11-06 16:21 | Outpatient (BNV) | payer OTHER, SELFPAY | PROVIDERS: Emergency Provider Emergency Medicine; Visit Provider Internal Medicine | DX: R07.9 Chest pain, unspecified (principal); V89.2XXA Person injured in unspecified motor-vehicle accident, traffic, initial encounter | CPT/HCPCS: 93010 ==

== ENCOUNTER 2024-11-13 09:24 | Outpatient (REF) | payer OTHER, SELFPAY ==
--- OUTSIDE RECORDS SUMMARY | 2024-11-13 10:21 | XMS_ITS | Clinical Summary ---
Author Organization [employer] [facility] ity Address [address] [place] [address] Care Team Providers Care Venetian Blind Cleaner Name Role Phone Aniya Youssef MD Primary Care Provider [phone] Social History Tobacco Use Types Packs/Day Years [...] (2 - 3-dose series) 10/29/2008 10/02/19 09 Depression Screening 03/14/2024 COVID-19 Vaccine ( - 2023-2 5 season) 2024 Influenza Vaccine (#1) 2024 HIB Vaccines Aged [...] complete this topic RSV Immunization Patients Un nwe 20 months Aged Out No longer eligible b ased on patient's age to complete this topic Varicella Vaccines Aged Out No longer eligible based on patient's age to complete this topic Care Teams Venetian Blind Cleaner Relationship Specialty Start Date End Date Aniya Youssef MD [address] [place] [address] , [address] [facility] D/B/A: [facility] DUONG Munroe PCP - General Internal Medicine 07/22/17
--- OUTSIDE RECORDS SUMMARY | 2024-11-13 10:21 | XMS_ITS | Clinical Summary ---
Author Organization [employer] Address [address] [facility] [address] [place] [address] Care Team Providers Care Crew Truck Driver Name Role Phone Unavailable Primary Care Provider [...] patient's age to complete this topic Insurance [facility]
[2024-11-13 10:50] LABS: Hemoglobin A1C 113.0603 umol/L; Total Hemoglobin (HGBA1C) 3333.7065 umol/L
[2024-11-13 11:05] LABS: Alanine Aminotransferase 23 U/L (0-31); Albumin Level 4.9 g/dL (3.5-5.0); Alkaline Phosphatase 82 U/L (39-117); Anion Gap 11 (12-20); Aspartate Amino Transferase 24 U/L (5-31); Blood Urea Nitrogen 13 mg/dL (9-16); Calcium 9.1 mg/dL (8.4-10.2); Carbon Dioxide 26 mmol/L (22-29); Chloride 108 mmol/L (96-108); Cholesterol 173 mg/dL (<200); Estimated Glomerular Filt Rate > 60; HDL Cholesterol 43 mg/dL (>40); Potassium 3.3 mmol/L (3.3-5.1); Sodium 142 mmol/L (135-145); Total Protein 7.6 g/dL (6.5-8.0); Triglycerides 74 mg/dL (<150)
[2024-11-13 11:25] LABS: Folate 8.7 ng/mL (> or = 4.0); Vitamin B12 335 pg/mL (200-900)
[2024-11-20 09:44] LABS: Anti Nuclear Antibody Pattern Nuclear, Speckled; Anti Nuclear Antibody Screen POSITIVE (NEGATIVE); Anti Nuclear Antibody Titer 1:40 titer
== END 2024-11-13 09:25 | disposition home or self-care (01) ==
LOC: HO.LAB 09:24
DX: Z00.00 Encounter for general adult medical examination without abnormal findings (principal); Z13.21 Encounter for screening for nutritional disorder; Z13.220 Encounter for screening for lipoid disorders; Z13.29 Encounter for screening for other suspected endocrine disorder; I10 Essential (primary) hypertension; E11.65 Type 2 diabetes mellitus with hyperglycemia; M25.60 Stiffness of unspecified joint, not elsewhere classified
CPT/HCPCS: 36415; 80053; 80061; 82306; 82607; 82746; 83036; 84443; 86038; 86039; 86431